=== PATIENT | male | born 1950 | race Caucasian/White ===

== ENCOUNTER 2022-12-11 14:21 | Outpatient (OUT) | payer MEDICARE, SELFPAY ==
[2022-12-11 14:54] LABS: Basophils Absolute Auto 0.1 10^3/uL (0.0-0.1); Basophils Percent Auto 0.9 % (0.2-2.0); Eosinophils Absolute Auto 0.2 10^3/uL (0.0-0.7); Eosinophils Percent Auto 3.3 % (0.9-7.0); Hematocrit 38.4 % (42.0-54.0); Hemoglobin 12.6 g/dL (14.0-18.0); Immature Granulocytes Abs Auto 0.03 10^3/uL (0.00-0.03); Immature Granulocytes Pct Auto 0.4 % (0.0-0.5); Lymphocytes Percent Auto 14.8 % (20.5-60.0); Mean Corpuscular HGB Conc 32.8 g/dL (29.9-35.2); Mean Corpuscular Hemoglobin 30.6 pg (25.9-34.0); Mean Corpuscular Volume 93.2 fL (80.0-94.0); Mean Platelet Volume 9.8 fL (9.5-13.5); Monocytes Absolute Auto 0.6 10^3/uL (0.3-0.8); Monocytes Percent Auto 8.9 % (1.7-12.0); Neutrophils Absolute Auto 4.8 10^3/uL (1.4-6.5); Neutrophils Percent Auto 71.7 % (43.0-75.0); Platelet Count 194 10^3/uL (150-450); Red Blood Count 4.12 10^6/uL (4.70-6.10); Red Cell Distribution Width 13.2 % (11.0-15.0); White Blood Count 6.7 10^3/uL (4.0-11.0)
[2022-12-11 14:57] LABS: Erythrocyte Sedimentation Rate 27 mm/hr (<=20)
[2022-12-11 16:21] LABS: Alanine Aminotransferase 39 U/L (16-63); Albumin Level 3.8 g/dL (3.4-5.0); Alkaline Phosphatase 86 U/L (46-116); Anion Gap 15.5; Aspartate Amino Transferase 22 U/L (15-37); BUN Creatinine Ratio 13.7; Bilirubin Total 0.5 mg/dL (0.2-1.0); Calcium 9.3 mg/dL (8.5-10.1); Carbon Dioxide 26.4 mmol/L (21.0-32.0); Chloride 101 mmol/L (98-107); Estimated GFR (African America >60 (>=60); Estimated GFR (Non-African Ame >60 (>=60); Globulin 3.9 g/dL; Glucose 102 mg/dL (74-106); Potassium 3.9 mmol/L (3.5-5.1); Sodium 139 mmol/L (136-145); Total Protein 7.7 g/dL (6.4-8.2); Uric Acid 5.9 mg/dL (3.5-7.2)
== END 2022-12-11 14:22 | disposition home or self-care (01) ==
PROVIDERS: PCP Family Medicine; Visit Provider Internal Medicine Rheumatology
DX: M10.09 Idiopathic gout, multiple sites (principal); Z79.899 Other long term (current) drug therapy
CPT/HCPCS: 36415; 80053; 84550; 85025; 85652

== ENCOUNTER 2023-01-22 15:31 | Outpatient (OUT) | payer MEDICARE, OTHER, SELFPAY ==
[2023-01-22 16:28] LABS: Prostate Specific Antigen Dx <0.13 ng/mL (<=4.00)
== END 2023-01-22 15:32 | disposition home or self-care (01) ==
LOC: LAB 15:36
PROVIDERS: PCP Family Medicine; Visit Provider Urology
DX: Z85.46 Personal history of malignant neoplasm of prostate (principal)
CPT/HCPCS: 36415; 84153

== ENCOUNTER 2023-04-03 10:17 | Outpatient (OUT) | payer MEDICARE, OTHER, SELFPAY ==
[2023-04-03 10:59] LABS: Basophils Absolute Auto 0.1 10^3/uL (0.0-0.1); Basophils Percent Auto 1.1 % (0.2-2.0); Eosinophils Absolute Auto 0.4 10^3/uL (0.0-0.7); Eosinophils Percent Auto 5.5 % (0.9-7.0); Hematocrit 40.1 % (42.0-54.0); Hemoglobin 13.2 g/dL (14.0-18.0); Immature Granulocytes Abs Auto 0.03 10^3/uL (0.00-0.03); Immature Granulocytes Pct Auto 0.5 % (0.0-0.5); Lymphocytes Absolute Auto 1.2 10^3/uL (1.2-3.8); Lymphocytes Percent Auto 18.5 % (20.5-60.0); Mean Corpuscular HGB Conc 32.9 g/dL (29.9-35.2); Mean Corpuscular Volume 94.1 fL (80.0-94.0); Mean Platelet Volume 9.9 fL (9.5-13.5); Monocytes Absolute Auto 0.7 10^3/uL (0.3-0.8); Monocytes Percent Auto 10.2 % (1.7-12.0); Neutrophils Absolute Auto 4.2 10^3/uL (1.4-6.5); Neutrophils Percent Auto 64.2 % (43.0-75.0); Platelet Count 221 10^3/uL (150-450); Red Blood Count 4.26 10^6/uL (4.70-6.10); Red Cell Distribution Width 13.2 % (11.0-15.0); White Blood Count 6.6 10^3/uL (4.0-11.0)
[2023-04-03 11:03] LABS: Estimated Average Glucose 128 mg/dL; Glycohemoglobin A1C 6.1 % (4.5-6.2)
[2023-04-03 11:33] LABS: Alanine Aminotransferase 34 U/L (16-63); Albumin Globulin Ratio 0.9; Albumin Level 3.6 g/dL (3.4-5.0); Alkaline Phosphatase 68 U/L (46-116); Anion Gap 9.5; Aspartate Amino Transferase 21 U/L (15-37); BUN Creatinine Ratio 11.2; Bilirubin Total 0.4 mg/dL (0.2-1.0); Calcium 8.9 mg/dL (8.5-10.1); Carbon Dioxide 30.6 mmol/L (21.0-32.0); Chloride 102 mmol/L (98-107); Chol HDL Ratio 3.7; Cholesterol 198 mg/dL (<=200); Estimated GFR (African America >60 (>=60); Estimated GFR (Non-African Ame >60 (>=60); Glucose 113 mg/dL (74-106); HDL Cholesterol 53 mg/dL (40-60); LDL Cholesterol Calculated 118.8 mg/dL; Potassium 4.1 mmol/L (3.5-5.1); Sodium 138 mmol/L (136-145); Thyroid Stimulating Hormone 2.602 uIU/mL (0.358-3.740); Total Protein 7.6 g/dL (6.4-8.2); Triglycerides 131 mg/dL (<=150); VLDL CHOLESTEROL 26.2 mg/dL
== END 2023-04-03 10:18 | disposition home or self-care (01) ==
PROVIDERS: PCP Family Medicine; Visit Provider Family Medicine
DX: E78.5 Hyperlipidemia, unspecified (principal); E11.65 Type 2 diabetes mellitus with hyperglycemia; E53.8 Deficiency of other specified B group vitamins
CPT/HCPCS: 36415; 80053; 80061; 82607; 83036; 84443; 85025

== ENCOUNTER 2023-11-27 09:56 | Outpatient (OUT) | payer MEDICARE, OTHER, SELFPAY ==
[2023-11-27 10:17] LABS: Basophils Absolute Auto 0.1 10^3/uL (0.0-0.1); Basophils Percent Auto 0.9 % (0.2-2.0); Eosinophils Absolute Auto 0.4 10^3/uL (0.0-0.7); Eosinophils Percent Auto 5.2 % (0.9-7.0); Hematocrit 38.9 % (42.0-54.0); Hemoglobin 13.4 g/dL (14.0-18.0); Immature Granulocytes Abs Auto 0.02 10^3/uL (0.00-0.03); Immature Granulocytes Pct Auto 0.3 % (0.0-0.5); Lymphocytes Absolute Auto 1.2 10^3/uL (1.2-3.8); Lymphocytes Percent Auto 16.5 % (20.5-60.0); Mean Corpuscular HGB Conc 34.4 g/dL (29.9-35.2); Mean Corpuscular Volume 92.8 fL (80.0-94.0); Mean Platelet Volume 10.1 fL (9.5-13.5); Monocytes Absolute Auto 0.5 10^3/uL (0.3-0.8); Monocytes Percent Auto 7.4 % (1.7-12.0); Neutrophils Absolute Auto 4.9 10^3/uL (1.4-6.5); Neutrophils Percent Auto 69.7 % (43.0-75.0); Platelet Count 212 10^3/uL (150-450); Red Blood Count 4.19 10^6/uL (4.70-6.10); Red Cell Distribution Width 13.2 % (11.0-15.0)
[2023-11-27 11:31] LABS: Alanine Aminotransferase 36 U/L (16-63); Albumin Globulin Ratio 1.1; Albumin Level 3.8 g/dL (3.4-5.0); Alkaline Phosphatase 65 U/L (46-116); Anion Gap 12.1; Aspartate Amino Transferase 18 U/L (15-37); BUN Creatinine Ratio 18.8; Bilirubin Total 0.5 mg/dL (0.2-1.0); Calcium 8.9 mg/dL (8.5-10.1); Chloride 105 mmol/L (98-107); Chol HDL Ratio 3.5; Cholesterol 163 mg/dL (<=200); Estimated GFR (African America >60 (>=60); Estimated GFR (Non-African Ame >60 (>=60); Globulin 3.6 g/dL; Glucose 121 mg/dL (74-106); HDL Cholesterol 47 mg/dL (40-60); LDL Cholesterol Calculated 95.4 mg/dL; Potassium 4.1 mmol/L (3.5-5.1); Sodium 140 mmol/L (136-145); Thyroid Stimulating Hormone 2.249 uIU/mL (0.358-3.740); Total Protein 7.4 g/dL (6.4-8.2); Triglycerides 103 mg/dL (<=150); Uric Acid 5.1 mg/dL (3.5-7.2); VLDL CHOLESTEROL 20.6 mg/dL
[2023-11-27 11:38] LABS: Prostate Specific Antigen Dx <0.13 ng/mL (<=4.00)
[2023-11-27 11:44] LABS: Estimated Average Glucose 123 mg/dL; Glycohemoglobin A1C 5.9 % (4.5-6.2)
== END 2023-11-27 09:57 | disposition home or self-care (01) ==
LOC: LAB 10:00
PROVIDERS: PCP Family Medicine; Visit Provider Family Medicine
DX: E11.69 Type 2 diabetes mellitus with other specified complication (principal); E78.5 Hyperlipidemia, unspecified; E53.8 Deficiency of other specified B group vitamins; Z85.46 Personal history of malignant neoplasm of prostate; M10.9 Gout, unspecified
CPT/HCPCS: 36415; 80053; 80061; 82607; 83036; 84153; 84443; 84550; 85025

== ENCOUNTER 2024-06-02 11:48 | Outpatient (OUT) | payer MEDICARE, OTHER, SELFPAY ==
[2024-06-02 12:08] LABS: Basophils Absolute Auto 0.1 10^3/uL (0.0-0.1); Basophils Percent Auto 0.7 % (0.2-2.0); Eosinophils Absolute Auto 0.4 10^3/uL (0.0-0.7); Eosinophils Percent Auto 4.7 % (0.9-7.0); Hematocrit 42.2 % (42.0-54.0); Hemoglobin 14.2 g/dL (14.0-18.0); Immature Granulocytes Abs Auto 0.02 10^3/uL (0.00-0.03); Immature Granulocytes Pct Auto 0.2 % (0.0-0.5); Lymphocytes Absolute Auto 1.4 10^3/uL (1.2-3.8); Lymphocytes Percent Auto 16.7 % (20.5-60.0); Mean Corpuscular HGB Conc 33.6 g/dL (29.9-35.2); Mean Corpuscular Hemoglobin 31.3 pg (25.9-34.0); Mean Corpuscular Volume 93.2 fL (80.0-94.0); Mean Platelet Volume 9.5 fL (9.5-13.5); Monocytes Absolute Auto 0.6 10^3/uL (0.3-0.8); Monocytes Percent Auto 7.3 % (1.7-12.0); Neutrophils Absolute Auto 5.8 10^3/uL (1.4-6.5); Neutrophils Percent Auto 70.4 % (43.0-75.0); Platelet Count 222 10^3/uL (150-450); Red Blood Count 4.53 10^6/uL (4.70-6.10); Red Cell Distribution Width 13.3 % (11.0-15.0); White Blood Count 8.3 10^3/uL (4.0-11.0)
--- OUTSIDE RECORDS SUMMARY | 2024-06-02 12:11 | XMS_ITS | CCD ---
Author Organization [facility] Care Team Providers Care Site Medical Director Name Role Phone KAVEH TRAN Attending Unavailable KAVEH TRAN Primary Care Unavailable KAVEH TRAN Primary Care Physician [phone] Micah Forrest Unavailable Kaveh Tran Unavailable Drew Dacosta Unavailable Unavailable Unavailable DO Kaveh Tran Primary Care Provider [phone] MD Micah Forrest Attending Provider [phone] Drew Dacosta Referring Unavailab Dr. Emanuel Nino Attending Unava ilable MOISÉS Figueroa Attending Provider DO Kaveh Tran Attending Provider [phone] MOISÉS Kessler Attending Provider [phone] MD Christofer Devi Attending Provider Caroline Campos Unavailable DO Kaveh Tran Primary Care Provider [phone] MOISÉS Kessler Attending Provider DO Kaveh Tran Attending Provider [phone] MD Christofer Devi Attending Provider Killian Taylor Unavailable DR KAVEH TRAN Primary Care Unavailable SUSAN, DR ISABEL Admitting Unavailable SUSAN, DR ISABEL Consulting Unavailable SUSAN, DR ISABEL Attending Unavailable MARC, DR LINN Admitting Unavailable MARC, DR LINN Primary Care Unavailable MARC, DR LINN Consulting Unavailable MARC, DR LINN Attending Unavailable MARC, DR LINN Primary Care Unavailable TOÑITO ., DR SEPULVEDA Admitting Unavailable TOÑITO ., DR SEPULVEDA Consulting Unavailable TOÑITO ., DR SEPULVEDA Attending Unavailable Anthony SIBLEY Attending Unavailable Anthony SIBLEY Attending Unavailable DO Kaveh Tran Primary Care Provider Choco, REESE Mckay Attending Provider Wilhelm, Nely Unavailable Marc, DO Linn Primary Care Provider MD Christofer Devi Attending Provider [phone] Marc, DO Linn Primary Care Provider [phone] MD Nimesh Akhtar Attending Provider [phone] Kaveh Tran Primary Care Unavailable Nimesh Akhtar Attending Unavailable Nimesh Akhtar Admitting Unavailable Choco Nely Attending Unavailable Choco, Nely Admitting Unavailable Kaveh Tran Primary Care Unavailable Kaveh Tran Primary Care Unavailable Christofer Devi Attending Unavailable Christofer Devi Admitting Unavailable Kaveh Tran DO Primary Care Provider [phone] ISMAEL REYNA Attending Unavailable ISMAEL REYNA Referring Unavailable SHERRIE KESSLER Attending Unavailable ISMAEL REYNA Attending Unavailable ISMAEL REYNA Attending Unavailable DREW DACOSTA Referring Unavailable OLESYA, DREW Hatfield Attending Unavailable DREW DACOSTA Referring Unavailable SHERRIE KESSLER Attending Unavailable ISMAEL REYNA Attending Unavailable YOVANNY LIU Attending Unavailable ISMAEL REYNA Attending Unavailable Medications Current Medications Medication Drug Class(es) Dates Sig (Normalized) Sig (Original) acetaminophen 325 mg / oxyCODONE hydrochloride 5 mg oral tablet (6 sources) Opioid Agonist Start: 11-30-2021 Percocet 325 mg-5 mg Tab 1 tab(s), Oral, q4hr Pain 4-7, Refill(s) 0 Start Date: 11/30/21 Status: Ordered allopurinol 300 mg oral tablet (20 sources) Xanthine Oxidase Inhibitor Start: 09-19-2022 take 1 tablet by mouth in the morning allopurinol (Zyloprim) 300 MG tablet Take 300 mg by mouth in the morning. 09/19/2022 Active take 1 tablet by mouth every twe nty-four hours amLODIPine 5 mg oral tablet (20 sources) Dihydropyridine Calcium Channel Eric Start: 07-15-2018 End: 12-10-2023 amLODIPine (Norvasc) 5 MG tablet Every morning 12/10/2023 Active aspirin 325 mg oral tablet (3 sources) Platelet Aggregation Inhibitor, Nonsteroidal Anti-inflammatory Drug Start: 11-30-2021 End: 12-30-2021 take 1 tablet by mouth once daily aspirin 325 mg Tab 325 mg = 1 tab(s), Oral, Daily, X 30 day(s), # 30 tab(s), Refills(s) 0 Start Date: 11/30/21 Stop Date: 12/30/21 Status: Ordered cephalexin 500 mg oral capsule (15 sources) Cephalosporin Antibacterial Start: 04-22-2024 cephalexin (Keflex) 500 MG capsule Indications: History of left knee replacement Take all 4 capsules one hour before the procedure. 4 capsule 04/22/2024 Active Start: 12-25-2021 take 1 capsule by mo [facility] three times daily Keflex 500 mg Cap 500 mg = 1 cap(s), Oral, TID, Take one capsule by mouth three times a day for ten days, # 30 cap(s), Refills(s) 0, Pharmacy: [facility]/pharmacy #[id number], 168, cm, 12/25/21 13:12:00 EDT, Height/Length Dosing, 108, kg, 12/25/21 13:12:00 EDT, Weight Dosing Start Date: 12/25/21 Status: Ordered Start: 11-30-2021 End: 12-05-2021 take 1 capsule by mouth four times daily Keflex 500 mg Cap 500 mg = 1 cap(s), Oral, QID, X 5 day(s), # 20 cap(s), Refills(s) 0 Start Date: 11/30/21 Stop Date: 12/05/21 Status: Ordered Start: 06-18-2019 End: 09-09-2023 take 1 capsule by mouth every eight hours Cephalexin (Keflex) 500 mg capsule Discontinued 500 MG PO Q8H June 18, 2019 1:00am September 09, 2023 9:10am Compression stockings, 20-30 mmHg, calf 20-30mmHg (20 sources) Start: 09-10-2019 Start: 09-10-[address] [place]ckings, 20-30mmHg, calf 20-30mmHg externally daily as directed for 3 months August, Not-Taking Start: 09-10-2019 Start: 09-10-[address] ockings, 20-30mmHg, calf 20-30mmHg externally daily as directed for 3 months August, Active Cpap (Continuous Positive rway Pressure) (3 sources) Start: 09-09-2023 Cpap (Continuo us Positive Airway Pressure) Active 0 .Route September 09, 2023 12:00am As directed Start: 09-09-2023 Cpap (Continuo us Positive Airway Pressure) Active 0 .ROUTE September 09, 2023 12:00am As directed CPAP Machine (20 sources) CPAP Machine Act kimani cyclobenzaprine hydrochloride 10 mg oral tablet (20 sources) Muscle Relaxant Start: 01-24-2023 cyclobenzaprin e (Flexeril) 10 MG tablet Daily at bedtime 01/24/2023 Active Start: 06-18-2019 End: 09-09-2023 take 10 mg by mouth three times daily Cyclobenzaprine Discontinued 10 MG PO Three times daily 50 June 18, 2019 1:00am September 09, 2023 9:15am docusate sodium 100 mg oral capsule (3 sources) Start: 11-30-2021 take 1 capsule by mouth twice daily Colace 100 mg Cap 100 mg = 1 cap(s), Oral, BID, Refills(s) 0 Start Date: 11/30/21 Status: Ordered doxycycline monohydrate 100 mg oral tablet (1 source) Tetracycline- class Drug Start: 12-25-2021 End: 01-04-2022 take 1 tablet by mouth twice daily doxycycline monohydrate 100 mg oral tablet 100 mg = 1 tab(s), Oral, BID, X 10 day(s), # 20 tab(s), Refills(s) 0, Pharmacy: [facility]/pharmacy #[id number], 168, cm, 12/25/21 13:12:00 EDT, Height/Length Dosing, 108, kg, 12/25/21 13:12:00 EDT, Weight Dosing Start Date: 12/25/21 Stop Date: 01/04/22 Status: Ordered gabapentin 600 mg oral tablet (20 sources) Anti-epilepti c Agent Start: 03-16-2024 End: 06-14-2024 take 1 tablet by mouth at bedtime gabapentin (Neurontin) 600 MG tablet Indications: Polyneuropathy Take 1 tablet (600 mg) by mouth at bedtime 90 tablet 03/16/2024 06/14/2024 Active Start: 09-09-2023 End: 02-25-2024 take 1 tablet by mouth at bedtime gabapentin (Neurontin) 600 MG tablet Indications: Polyneuropathy Take 1 tablet (600 mg) by mouth at bedtime 30 tablet 2 11/27/2023 02/25/2024 Active Start: 01-24-2023 gabapentin 600 mg Tab Refills(s) 0 Start Date: 01/24/23 Status: Ordered Start: 11-14-2020 take 5 capsules by m out once daily gabapentin 100 mg Cap 5 cap, Oral, Daily, Refills(s) 0, Pain Start Date: 11/14/20 Status: Ordered Start: 11-14-2020 gabapentin 100 mg Cap See Instructions, 4 tabs one a day at hs, Refills(s) 0 Start Date: 11/14/20 Status: Ordered take 1 capsule by mo [facility] four times daily Gabapentin 100 MG Oral Capsule TAKE 1 CAPSULE 4 TIMES DAILY Quantity: 0 Refills: 0 Ordered: 21-Nov-2021 DO Active Glucometer Device (13 sources) Start: 06-17-2022 Start: 06-17-2022 Glucometer Dev ice as directed as directed as directed per insurance May, Active hydroCHLOROthiazide 12.5 mg / olmesartan medoxomil 20 mg oral tablet (20 sources) Thiazide Diuretic, Angiotensin 2 Receptor Eric Start: 09-09-2023 End: 12-10-2023 take 1 tablet by mouth once daily Olmesartan-Hydrochlorothiazide Active 1 TAB PO Daily 90 December 10, 2023 2:24pm Start: 12-14-2022 olmesartan-hyd roCHLOROthiazide (BENIcar HCT) 20-12.5 MG tablet 12/14/2022 Active Start: 10-05-2019 take 1 tablet by melva th every twenty-four hours Olmesartan Medoxomil-HCTZ 20-12.5 MG 1 t ablet Orally Once a day Sep, Active Start: 10-05-2019 take 1 tablet by melva th every twenty-four hours meloxicam 15 mg oral tablet (20 sources) Nonsteroidal Anti-inflammatory Drug Start: 09-09-2023 meloxicam (Mobic) 15 MG tablet Daily 09/09/2023 Active Start: 08-20-2021 take 1 tablet by melva th once daily meloxicam 7.5 mg oral tablet 7.5 mg = 1 tab(s), Oral, Daily, Refills(s) 0, Inflammation Start Date: 08/20/21 Status: Ordered Start: 04-09-2021 take 1 tablet by melva th once daily as needed Meloxicam 15 MG 1 tablet Orally Once a day as needed for 30 days Mar, Active Start: 04-09-2021 take 1 tablet by melva th twice daily as needed Meloxicam 7.5 MG 1 tablet Orally BID PRN for 30 day(s) Mar, Active Start: 04-09-2021 metFORMIN hydrochloride 500 mg oral tablet (20 sources) Biguanide Start: 09-09-2023 take 500 mg by mouth once daily Metformin Active 500 MG PO Daily September 09, 2023 12:00am Start: 05-09-2022 take 1 tablet by melva th every twenty-four hours metFORMIN HCl 500 MG 1 tablet with a meal Orally Once a day Apr, Active metFORMIN XR (Gl ucophage-XR) 500 MG 24 hr tablet 1 (one) time each day at the same time. Active Multivitamin preparation (10 sources) Start: 06-02-2019 take 1 tablet by mouth once daily Multivitamin Active 1 TAB PO Daily June 02, 2019 1:00am Start: 06-02-2019 take 1 tablet by melva th once daily Multivitamin Active 1 TAB PO Daily June 02, 2019 12:00am Multivitamin, Therapeutic w/ Minerals (7 sources) Start: 03-21-2015 take 1 tablet by mouth twice daily Multivitamin, Therapeutic w/ Minerals 1 tab(s), Oral, BID, Refill(s) 0, Prophylaxis Start Date: 03/21/15 Status: Ordered Start: 03-21-2015 take 1 tablet by melva th once daily Multivitamin, Therapeutic w/ Minerals 1 tab(s), Oral, Daily, Refill(s) 0, Prophylaxis Start Date: 03/21/15 Status: Ordered Needle (Disp) 22G X 1 (13 sources) Start: 06-17-2022 Start: 06-17-2022 Needle (Disp) 22G X 1 as directed IM monthly for 90 days May, Active predniSONE 5 mg oral tablet (20 sources) Start: 08-17-2022 End: 09-16-2023 take 1-2 tablets by mouth once daily as needed predniSONE (Deltasone) 5 MG tablet TAKE 1 - 2 TABLETS BY MOUTH EVERYDAY NEEDED 08/17/2022 Active Start: 06-18-2019 End: 09-09-2023 Prednisone Discontinued 1 do se pk PO per package directions June 18, 2019 1:00am September 09, 2023 9:11am take 4 tabs for 3 days then take 3 tabs for 3 days then take 2 tabs for 3 days then take 1 tab for 3 days Start: 06-18-2019 Prednisone Act kimani 1 dose pk PO per package directions June 18, 2019 1:00am take 4 tabs for 3 days then take 3 tabs for 3 days then take 2 tabs for 3 days then take 1 tab for 3 days Start: 06-18-2019 Prednisone Act kimani 1 dose pk PO per package directions June 18, 2019 12:00am take 4 tabs for 3 days then take 3 tabs for 3 days then take 2 tabs for 3 days then take 1 tab for 3 days rOPINIRole 1 mg oral tablet (20 sources) Nonergot Dopamine Agonist Start: 02-11-2024 take 2 tablets by mouth at bedtime rOPINIRole (Requip) 0.5 MG tablet Indications: Restless leg syndrome TAKE 1 TABLET BY MOUTH 1 TO 3 HOURS BEFORE BEDTIME (TAKE IN ADDITION TO 1MG) 90 tablet 3 02/11/2024 Active Start: 02-11-2024 rOPINIRole (Re quip) 1 MG tablet Indications: Restless leg syndrome TAKE 1 TABLET EVERY DAY (TAKE IN ADDITION TO 0.5MG) 90 tablet 3 02/11/2024 Active Start: 09-09-2023 take 1.5 mg by mouth once eddy y Ropinirole Active 1.5 MG PO Daily September 09, 2023 12:00am Start: 11-13-2021 rOPINIRole (Re quip) 1 MG tablet 11/25/2022 Active Start: 11-13-2021 rOPINIRole (Re quip) 0.5 MG tablet 11/25/2022 Active Start: 03-27-2020 take 2 tablets by mo [facility] once daily ropinirole 0.25 mg Tab 0.5 mg = 2 tab(s), Oral, Daily, Refills(s) 0, Other (see comment) Start Date: 03/27/20 Status: Ordered take 1.5 tablets by mouth every twenty-four hours rOPINIRole HCl 1 MG 1.5 tablet 1 to 3 hours before bedtime Orally Once a day Active simvastatin 20 mg oral tablet (20 sources) HMG-CoA Reductase Inhibitor Start: 03-21-2015 End: 12-10-2023 take 20 mg by mouth once daily at bedtime Simvastatin Active 20 MG PO Daily at bedtime 90 90 December 10, 2023 2:15pm sulfamethoxazole 800 mg / trimethoprim 160 mg oral tablet (2 sources) Dihydrofolate Reductase Inhibitor Antibacterial, Sulfonamide Antimicrobial Start: 12-22-2021 End: 12-27-2021 Bactrim D.S. 800 mg-160 mg Tab 1 tab(s), Oral, BID for 5 day(s), 10 tab(s), Refill(s) 0, [facility]/pharmacy #[id number], 166, cm, 12/22/21 15:28:00 EDT, Height/Length Dosing, 108.8, kg, 12/22/21 15:28:00 EDT, Weight Dosing Start Date: 12/22/21 Stop Date: 12/27/21 Status: Ordered Syringe (Disposable) 3 ML (13 sources) Start: 06-17-2022 Start: 06-17-2022 Syringe (Dispo sable) 3 ML as directed im monthly for 90 days May, Active Syringe With Needle (1 source) Start: 12-10-2023 Syringe With N eedle Active 0 .Route 3 December 10, 2023 12:00am As directed Vitamin B Complex oral tablet (7 sources) Start: 03-21-2015 take 1 tablet by mouth twice daily Vitamin B Complex oral tablet 1 tab(s), Oral, BID, Refill(s) 0, Prophylaxis Start Date: 03/21/15 Status: Ordered Start: 03-21-2015 take 1 tablet by [facility] once daily Vitamin B Complex oral tablet 1 tab(s), Oral, Daily, Refill(s) 0, Prophylaxis Start Date: 03/21/15 Status: Ordered vitamin b12 1 mg/ml injectable solution (20 sources) Vitamin B12 Start: 09-09-2023 End: 12-10-2023 inject 1 mL by intramuscular injection every two months Cyanocobalamin (Vitamin B-12) Active 1000 MCG IM .Q2 months 3 December 10, 2023 2:19pm 1 mL Injection every other month Start: 12-03-2022 cyanocobalamin (Vitamin B-12) 1000 MCG/ML injection 12/03/2022 Active Start: 06-17-2022 Cyanocobalamin 1000 MCG/ML 1 mL Injection every other month single vial May, Active Start: 06-17-2022 Cyanocobalamin 1000 MCG/ML 1 mL Injection monthly for 90 days single vial May, Active {20 (nirmatrelvir 150 MG Ora l Tablet) / 10 (ritonavir 100 MG Oral Tablet) } Pack [Paxlovid 5-Day] (3 sources) Start: 03-21-2023 Paxlovid (300/ 100) 20 x 150 MG & 10 x 100MG as directed Orally as directed GFR >60 covid + 03/20/23 Mar, Active Completed/Discontinued Medications Medication Drug Class(es) Dates Sig (Normalized) Sig (Original) azithromycin 250 mg oral tablet (3 sources) Macrolide Antimicrobial Start: 09-08-2023 End: 09-16-2023 Azithromycin (Zithromax Z-Enoc) 250 mg tablet Discontinued 250 MG PO As Directed September 08, 2023 12:00am September 16, 2023 9:39am citalopram 20 mg oral tablet (20 sources) Serotonin Reuptake Inhibitor Start: 10-14-2017 take 1 tablet by mouth every twenty-four hours CeleXA 40 MG 1 tablet Orally Once a day for 90 days Sep, Active Start: 10-14-2017 End: 12-10-2023 take 20 mg by mouth once daily in the morning Citalopram Discontinued 20 MG PO Every morning July 15, 2018 12:00am December 10, 2023 1:56pm indomethacin 25 mg oral capsule (19 sources) Nonsteroidal Anti-inflammatory Drug Start: 09-09-2023 End: 09-16-2023 take 1 capsule by mouth twice daily at mealtime Indomethacin Discontinued 25 MG PO Twice daily September 09, 2023 12:00am September 16, 2023 9:38am 1 capsule with food or milk Orally Twice a day Start: 01-28-2022 take 1 capsule by mo uth every twelve hours Indomethacin 25 MG 1 capsule with food or milk Orally Twice a day Jan, Active Ketorolac (20 sources) Nonsteroidal Anti-inflammatory Drug, Cyclooxygenase Inhibitor Start: 06-28-2017 Toradol per 15 mg Jun, 60 mg methylPREDNISolone 4 mg oral tablet (3 sources) Corticosteroid Start: 09-08-2023 End: 09-16-2023 Methylprednisolone (Medrol (Enoc)) 4 mg tablets,dose pack Discontinued 4 MG PO As Directed September 08, 2023 12:00am September 16, 2023 9:39am oxyCODONE hydrochloride 5 mg oral capsule (10 sources) Opioid Agonist Start: 06-18-2019 End: 09-09-2023 take 5-10 mg by mouth every six hours Oxycodone Discontinued 5 - 10 MG PO Q6H 60 8 June 18, 2019 September 09, 2023 9:11am Turmeric Curcumin Oral Capsule (1 source) take 1 capsule by mouth once daily Turmeric Curcumin Oral Capsule TAKE 1 CAPSULE Daily Quantity: 0 Refills: 0 Ordered: 21-Nov-2021 DO Active Vitamin B Complex CAPS (1 source) Vitamin B Comple x CAPS as directed Quantity: 0 Refills: 0 Ordered: 21-Nov-2021 DO Active Problems Active Problems Problem Classification Problem Date Documented Date Episodic/Chronic Abdominal hernia (20 sources) Hernia of anterior abdominal wall; Translations: [Ventral hernia without obstruction or gangrene] Episodic Acquired foot deformities (20 sources) Acquired hallux valgus; Translations: [Hallux valgus (acquired), unspecified foot] Chronic Acquired foot deformities (4 sources) Acquired deformity of toe of left foot; Translations: [Acquired deformities of toe(s), unspecified, left foot] 02-13-2024 Episodic Acquired foot deformities (4 sources) Acquired deformity of toe of right foot; Translations: [Acquired deformities of toe(s), unspecified, right foot] 02-13-2024 Episodic Anxiety disorders (20 sources) Agoraphobia; Translations: [Agoraphobia, unspecified] Onset: 04-09-2021 Resolved: 09-14-2021 Chronic Aortic; peripheral; and visceral artery aneurysms (20 sources) Abdominal aortic aneurysm without rupture; Translations: [Abdominal aortic aneurysm, without rupture] 09-09-2023 Chronic Cancer of prostate (20 sources) Carcinoma of prostate; Translations: [Malignant neoplasm of prostate] Onset: 09-14-2021 Resolved: 09-14-2021 Chronic Cancer of prostate (11 sources) Personal history of malignant neoplasm of prostate; Translations: [History of malignant neoplasm of prostate] Onset: 08-20-2021 Episodic Complications of surgical procedures or medical care (20 sources) Difficult intubation; Translations: [Failed or difficult intubation, subsequent encounter] Episodic Diabetes mellitus with complications (20 sources) Peripheral neuropathy due to type 2 diabetes mellitus; Translations: [Type 2 diabetes mellitus with diabetic neuropathy, unspecified] Onset: 09-06-2022 Chronic Diabetes mellitus without complication (5 sources) Diabetes mellitus; Translations: [Type 2 diabetes mellitus] 03-21-2015 Chronic Diabetes mellitus without complication (20 sources) Prediabetes; Translations: [Hyperglycemia] Onset: 04-09-2021 Resolved: 09-14-2021 01-07-2020 Episodic Disorders of lipid metabolism (20 sources) Hyperlipidemia, unspecified; Translations: [Hypercholesterolemia ] Onset: 07-15-2018 Resolved: 09-14-2021 03-27-2020 Chronic Essential hypertension (20 sources) Essential (primary) hypertension; Translations: [Hypertensive disorder] Onset: 07-15-2018 Resolved: 09-14-2021 08-18-2019 Chronic Genitourinary symptoms and ill-defined conditions (2 sources) Urge incontinence; Translations: [Urge incontinence] Onset: 08-20-2021 Chronic Genitourinary symptoms and ill-defined conditions (12 sources) Nocturia; Translations: [Nocturia] Onset: 08-20-2021 Episodic Gout and other crystal arthropathies (20 sources) 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; Translations: [Gout, unspecified] Onset: 09-18-2022 Chronic Hyperplasia of prostate (7 sources) Benign prostatic hyperplasia 03-27-2020 Chronic Joint disorders and dislocations; trauma-related (1 source) Tear of medial meniscus of knee 03-27-2020 Episodic Mycoses (6 sources) Pain in toe; Translations: [Tinea unguium] 02-13-2024 Episodic Neoplasms of unspecified nature or uncertain behavior (2 sources) Neoplastic disease; Translations: [Neoplasm of unspecified behavior of bone, soft tissue, and skin] 03-08-2024 Episodic Nutritional deficiencies (13 sources) Vitamin D deficiency; Translations: [Vitamin D deficiency, unspecified] Chronic Nutritional deficiencies (9 sources) Deficiency of other specified B group vitamins; Translations: [Cobalamin deficiency] Episodic Osteoarthritis (1 source) Osteoarthritis of knee; Translations: [Unilateral primary osteoarthritis, left knee] Onset: 11-30-2021 Chronic Osteoporosis (20 sources) Senile osteoporosis; Translations: [Age-related osteoporosis without current pathological fracture] 09-09-2023 Chronic Other acquired deformities (20 sources) Joint contracture of the ankle and/or foot; Translations: [Contracture, right ankle] Chronic Other acquired deformities (20 sources) Spondylolisthesis; Translations: [Spondylolisthesis, lumbar region] Episodic Other acquired deformities (3 sources) Lumbar spondylolisthesis; Translations: [Spondylolisthesis, lumbar region] 09-09-2023 Episodic Other and unspecified benign neoplasm (2 sources) Melanocytic nevus of trunk; Translations: [Melanocytic nevi of trunk] 03-08-2024 Episodic Other connective tissue disease (1 source) Diastasis recti 11-14-2020 Episodic Other connective tissue disease (1 source) Arthrodesis status Episodic Other ear and sense organ disorders (7 sources) Hearing loss 04-04-2020 Chronic Other hereditary and degenerative nervous system conditions (20 sources) Restless legs; Translations: [Restless legs syndrome] Onset: 07-24-2023 11-13-2021 Chronic Other hereditary and degenerative nervous system conditions (3 sources) Restless legs syndrome Onset: 03-01-2021 Resolved: 03-01-2021 Chronic Other inflammatory condition of skin (2 sources) Seborrheic dermatitis; Translations: [Other seborrheic dermatitis] 03-08-2024 Episodic Other lower respiratory disease (5 sources) Cough; Translations: [Cough] 09-09-2023 Episodic Other male genital disorders (2 sources) Secondary erectile dysfunction; Translations: [Erectile dysfunction following radical prostatectomy] Onset: 08-20-2021 Chronic Other male genital disorders (7 sources) Erectile dysfunction following radical prostatectomy 06-05-2020 Chronic Other male genital disorders (1 source) Erectile dysfunction following radical prostatectomy; Translations: [ERECTILE DYSF FLW RADL PROSTATECT] Onset: 08-27-2022 Chronic Other nervous system disorders (20 sources) Chronic pain; Translations: [Other chronic pain] 09-09-2023 Chronic Other nervous system disorders (20 sources) Polyneuropathy; Translations: [Polyneuropathy, unspecified] Onset: 07-24-2023 09-09-2023 Chronic Other nervous system disorders (2 sources) Polyneuropathy, unspecified Chronic Other nervous system disorders (17 sources) Carpal tunnel syndrome of right wrist; Translations: [Carpal tunnel syndrome, right upper limb] Onset: 07-24-2023 01-14-2024 Chronic Other nervous system disorders (17 sources) Disorder of right median nerve; Translations: [Other lesions of median nerve, right upper limb] Onset: 07-24-2023 07-24-2023 Chronic Other nervous system disorders (20 sources) Unsteady gait; Translations: [Unsteadiness on feet] Episodic Other nervous system disorders (12 sources) Impairment of balance; Translations: [Other abnormalities of gait and mobility] Episodic Other nervous system disorders (1 source) Other abnormalities of gait and mobility Episodic Other non-epithelial cancer of skin (20 sources) History of malignant basal cell neoplasm of skin; Translations: [Personal history of other malignant neoplasm of skin] 03-08-2024 Episodic Other nutritional; endocrine; and metabolic disorders (20 sources) Body mass index 30+ - obesity; Translations: [Body mass index (BMI) 37.0-37.9, adult] 11-14-2020 Chronic Other nutritional; endocrine; and metabolic disorders (20 sources) Obese class II; Translations: [Body mass index (BMI) 35.0-35.9, adult] Chronic Other nutritional; endocrine; and metabolic disorders (1 source) Body mass index (BMI) 37.0-37.9, adult Onset: 03-01-2021 Resolved: 03-01-2021 Chronic Other nutritional; endocrine; and metabolic disorders (1 source) Obesity; Translations: [Obesity, unspecified] Chronic Other screening for suspected conditions (not mental disorders or infectious disease) (20 sources) Raised prostate specific antigen; Translations: [Patient encounter status] Onset: 03-13-2021 Resolved: 04-09-2021 03-27-2020 Episodic Other skin disorders (2 sources) Lentiginosis; Translations: [Other melanin hyperpigmentation] 03-08-2024 Episodic Other skin disorders (2 sources) Inflamed seborrheic keratosis; Translations: [Inflamed seborrheic keratosis] 03-08-2024 Episodic Other upper respiratory infections (5 sources) Streptococcal sore throat; Translations: [Streptococcal pharyngitis] Episodic Residual codes; unclassified (7 sources) Sleep apnea 04-04-2020 Chronic Comment on above: uses CPAP uses CPAP Residual codes; unclassified (20 sources) Obstructive sleep apnea syndrome; Translations: [Obstructive sleep apnea (adult) (pediatric)] Onset: 07-24-2023 09-09-2023 Chronic Residual codes; unclassified (20 sources) Periodic limb movement disorder; Translations: [Periodic limb movement disorder] Onset: 07-24-2023 09-09-2023 Chronic Residual codes; unclassified (20 sources) 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; Translations: [Insomnia due to medical condition] Chronic Residual codes; unclassified (3 sources) Obstructive sleep apnea (adult) (pediatric) Onset: 03-01-2021 Resolved: 03-01-2021 Chronic Residual codes; unclassified (2 sources) Periodic limb movement disorder Onset: 03-01-2021 Resolved: 09-14-2021 Chronic Residual codes; unclassified (1 source) Obstructive sleep apnea (adult)(pediatric); Translations: [Obstructive sleep apnea (adult) (pediatric)] Onset: 04-04-2023 Chronic Residual codes; unclassified (20 sources) Edema; Translations: [Localized edema] Episodic Residual codes; unclassified (20 sources) Postprocedural state finding; Translations: [Other specified postprocedural states] Episodic Residual codes; unclassified (3 sources) Edema of lower extremity; Translations: [Localized edema] 09-09-2023 Episodic Residual codes; unclassified (3 sources) Insomnia; Translations: [Insomnia, unspecified] 09-09-2023 Episodic Screening and history of mental health and substance abuse codes (1 source) Ex-smoker; Translations: [Personal history of tobacco use] Episodic Comment on above: quit as a teen; Skin and subcutaneous tissue infections (1 source) Cellulitis; Translations: [Cellulitis, unspecified] Onset: 12-25-2021 Episodic Spondylosis; intervertebral disc disorders; other back problems (20 sources) Degeneration of lumbar intervertebral disc; Translations: [Other intervertebral disc degeneration, lumbar region] Onset: 04-09-2021 Resolved: 04-09-2021 Chronic Unclassified (3 sources) Encounter for screening for cardiovascular disorders; Translations: [Encounter for screening for cardiovascular disorders] Onset: 07-15-2018 Viral infection (3 sources) Respiratory syncytial virus infection; Translations: [Other specified viral diseases] 09-09-2023 Episodic Past or Other Problems Problem Classification Problem Date Documented Da te Episodic/Chronic Other aftercare (5 sources) Other buttermilk drier operator (current) drug therapy; Translations: [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] Onset: 09-17-2022 Episodic Other connective tissue disease (2 sources) Pain of toes of bilateral feet; Translations: [Pain in right toe(s)] 12-07-2023 Episodic Other nervous system disorders (17 sources) Paresthesia; Translations: [Paresthesia of skin] Onset: 07-24-2023 07-24-2023 Episodic Other nervous system disorders (17 sources) Abnormal gait; Translations: [Unsteadiness on feet] Onset: 07-24-2023 07-24-2023 Episodic Other non-traumatic joint disorders (1 source) Pain in left knee Onset: 09-14-2021 Resolved: 09-14-2021 Episodic Spondylosis; intervertebral disc disorders; other back problems (20 sources) Lumbar radiculopathy; Translations: [Radiculopathy, lumbar region] Onset: 07-24-2023 06-17-2019 Episodic Unclassified (1 source) Cough, unspecified type R05.9 Viral infection (6 sources) Disease caused by 2019-nCoV; Translations: [COVID-19] Results Test Name Value Interpretation Reference Range Facility No Panel Informationon 03-08 Type of biopsy: tangential Informed consent: discussed and consent obtained Informed consent comment: The risks and benefits of the biopsy were discussed. Risks include but are not limited to bleeding, infection, scarring, pain, and nerve damage. An opportunity to ask questions prior to the procedure was permitted and all questions were answered. Patient was prepped and draped in usual sterile fashion: area cleansed with alcohol. Anesthesia: the lesion was anesthetized in a standard fashion Anesthetic: 1% lidocaine w/ epinephrine 1-100,000 buffered w/ 8.4% NaHCO3 Instrument used: DermaBlade Hemostasis achieved with: electrodesiccation Outcome: patient tolerated procedure well Outcome comment: The specimen was placed in a prelabeled formalin container to be sent for pathology Post-procedure details: sterile dressing applied and wound care instructions given Post-procedure details comment: Emphasized need to contact clinic for any signs of infection, uncontrollable bleeding, or complications. Dressing type: bandage Additional details: Photo taken yes Amount of lidocaine used: 0.5 cc [facility] XR Knee - left 3 [facility] Result: Xrays taken in the office today saved to the permanent record, AP, sunrise and lateral weightbearing films, show stable position and alignment of the TKA prosthesis. No sign of loosening, fracture or infection. [facility] Radiology Study observation (narrative) [facility] Basophils Auto (Bld) [#/Vol] on 11-27-2023 Basophils (Bld) [#/Vol] 0.1 10 3/uL 0.0-0.1 [facility] Basophils/100 WBC Auto (Bld) on 11-27-2023 Basophils/100 WBC (Bld) 0.9 % 0.2-2.0 [facility] Cholesterol in LDL Calc [Mas s/Vol]on 11-27-2023 Cholesterol in LDL [Mass/Vol] 95.4 mg/dL [facility] Comment on above: <100 mg/dl [id number] 0-129 mg/dl NEAR OR ABOVE [id number] mg/dl BORDERLINE [id number] mg/dl HIGH>190 mg/dl VERY HIGH Cholesterol in VLDL Calc [Ma ss/Vol]on 11-27-2023 Cholesterol in VLDL [Mass/Vol] 20.6 mg/dL [facility] Eosinophils/100 WBC Auto (Bl d)on 11-27-2023 Eosinophils/100 WBC (Bld) 5.2 % 0.9-7.0 [facility] Erythrocyte distribution wid th Auto (RBC) [Ratio]on 11-27-2023 Erythrocyte distribution width (RBC) [Ratio] 13.2 % 11.0-15.0 [facility] Estimated glomerular filtrat ion rate (GFR) non- Americanon 11-27-2023 GFR/1.73 sq M.predicted among non-blacks MDRD (S/P/Bld) [Vol rate/Area] mL/min/{1.73_m2} >=60 [facility] Globulin Calc (S) [Mass/Vol] on 11-27-2023 Globulin (S) [Mass/Vol] 3.6 g/dL [facility] Glucose mean value [Mass/vol ume] in Blood Estimated from glycated hemoglobinon 11-27-2023 Average glucose Estimated from glycated hemoglobin (Bld) [Mass/Vol] 123 mg/dL [facility] Hematocrit Auto (Bld) [Volum e fraction]on 11-27-2023 Hematocrit (Bld) [Volume fraction] 38.9 % Low 42.0-54.0 [facility] Hemoglobin [Mass/volume] in Bloodon 11-27-2023 Hemoglobin (Bld) [Mass/Vol] 13.4 g/dL Low 14.0-18.0 [facility] Laboratory - Chemistry and C hemistry - challengeon 11-27-2023 Albumin [Mass/Vol] 3.8 g/dL 3.4-5.0 [facility] ALP [Catalytic activity/Vol] 65 U/L 46-116 [facility] ALT [Catalytic activity/Vol] 36 U/L 16-63 [facility] AST [Catalytic activity/Vol] 18 U/L 15-37 [facility] Bilirubin [Mass/Vol] 0.5 mg/dL 0.2-1.0 [facility] Calcium [Mass/Vol] 8.9 mg/dL 8.5-10.1 [facility] Chloride [Moles/Vol] 105 mmol/L 98-107 [facility] Cholesterol [Mass/Vol] 163 mg/dL <=200 [facility] Cholesterol in HDL [Mass/Vol] 47 mg/dL 40-60 [facility] Comment on above: > or =60 mg/dl - LOW CARDIOVASCULAR RISK<40 mg/dl - HIGH CARDIOVASCULAR RISK CO2 [Moles/Vol] 27.0 mmol/L 21.0-32.0 [facility] Cobalamin (Vitamin B12) [Mass/Vol] 337.0 pg/mL 193.0-986. 0 [facility] Creatinine [Mass/Vol] 1.12 mg/dL 0.70-1.30 [facility] GFR/1.73 sq M.predicted MDRD (S/P/Bld) [Vol rate/Area] mL/min/{1.73_m2} >=60 [facility] Glucose [Mass/Vol] 121 mg/dL High 74-106 [facility] Potassium [Moles/Vol] 4.1 mmol/L 3.5-5.1 [facility] Protein [Mass/Vol] 7.4 g/dL 6.4-8.2 [facility] Sodium [Moles/Vol] 140 mmol/L 136-145 [facility] Triglyceride [Mass/Vol] 103 mg/dL <=150 [facility] TSH Qn 2.249 m[IU]/L 0.358-3.74 0 [facility] Urate [Mass/Vol] 5.1 mg/dL 3.5-7.2 [facility] Urea nitrogen [Mass/Vol] 21.0 mg/dL High 7.0-18.0 [facility] Urea nitrogen/Creatinine [Mass ratio] 18.8 mg/mg [facility] Laboratory - Hematology and Cell countson 11-27-2023 HbA1c (Bld) [Mass fraction] 5.9 % 4.5-6.2 [facility] Comment on above: ADA RECOMMENDED LIMI T 4.0 - 6.0ADA THERAPEUTIC TARGET < 7.0ACTION SUGGESTED> 7.0 Immature granulocytes/100 WBC (Bld) 0.3 % 0.0-0.5 [facility] Leukocytes [#/volume] correc monica for nucleated erythrocytes in Blood by Automated counon 11-27-2023 WBC corrected for nucl RBC Auto (Bld) [#/Vol] 7.0 10 3/uL 4.0-11.0 [facility] Lymphocytes Auto (Bld) [#/Vo l]on 11-27-2023 Lymphocytes (Bld) [#/Vol] 1.2 10 3/uL 1.2-3.8 [facility] Lymphocytes/100 WBC Auto (Bl d)on 11-27-2023 Lymphocytes/100 WBC (Bld) 16.5 % Low 20.5-60.0 [facility] MCH Auto (RBC) [Entitic mass ]on 11-27-2023 MCH (RBC) [Entitic mass] 32.0 pg 25.9-34.0 [facility] MCHC Auto (RBC) [Mass/Vol]on 11-27-2023 MCHC (RBC) [Mass/Vol] 34.4 g/dL 29.9-35.2 [facility] MCV Auto (RBC) [Entitic vol] on 11-27-2023 MCV (RBC) [Entitic vol] 92.8 fL 80.0-94.0 [facility] Monocytes Auto (Bld) [#/Vol] on 11-27-2023 Monocytes (Bld) [#/Vol] 0.5 10 3/uL 0.3-0.8 [facility] Monocytes/100 WBC Auto (Bld) on 11-27-2023 Monocytes/100 WBC (Bld) 7.4 % 1.7-12.0 [facility] Neutrophils Auto (Bld) [#/Vo l]on 11-27-2023 Neutrophils (Bld) [#/Vol] 4.9 10 3/uL 1.4-6.5 [facility] Neutrophils/100 WBC Auto (Bl d)on 11-27-2023 Neutrophils/100 WBC (Bld) 69.7 % 43.0-75.0 [facility] No Panel Informationon 11-26 Eosinophils # (Auto) 0.4 10 3/uL 0.0-0.7 [facility] Immature Granulocyte # (Auto) 0.02 10 3/uL 0.00-0.03 [facility] Prostate Specific Antigen Total <0.13 ng/mL <=4.00 [facility] Platelet mean volume Auto (B ld) [Entitic vol]on 11-27-2023 Platelet mean volume (Bld) [Entitic vol] 10.1 fL 9.5-13.5 [facility] Platelets Auto (Bld) [#/Vol] on 11-27-2023 Platelets (Bld) [#/Vol] 212 10 3/uL 150-450 [facility] RBC Auto (Bld) [#/Vol]on RBC (Bld) [#/Vol] 4.19 10 6/uL Low 4.70-6.10 [facility] Serum or plasma albumin/glob ulin mass ratioon 11-27-2023 Albumin/Globulin [Mass ratio] 1.1 {ratio} [facility] Serum or plasma anion gap de terminationon 11-27-2023 Anion gap [Moles/Vol] 12.1 mmol/L [facility] Serum or plasma total choles terol/high density lipoprotein (HDL) cholesterol mass nani 11-27-2023 Cholesterol.total/Lina sterol in HDL [Mass ratio] 3.5 {ratio} [facility] Comment on above: 3.3 - 4.4 LOW RISK4. 4 - 7.1 AVERAGE RISK7.1 - 11.0 MODERATE RISK>11.0 HIGH RISK Capillary blood glucose abelardo urement by glucometer (mass/volume)Ordered By: Nimesh Akhtar on 09-24-2023 Glucose [Mass/Vol] 115 mg/dL [facility] Comment on above: Random Glucose Refer ence Range is dependent on time and content of last meal. Glucose of more than 200 mg/dL in a nonstressed, ambulatory subject supports the diagnosis of Diabetes Mellitus. Result Comment: [place] om Glucose Reference Range is dependent on time and content of last meal. Glucose of more than 200 mg/dL in a nonstressed, ambulatory subject supports the diagnosis of Diabetes Mellitus. PERFORMED BY: [facility] [address] [facility] [place] [address] PATHOLOGIST FOIL WRAPPER MARÍA ELENA MCCOY M.D. Performed By: #### G LULS #### Point of Care testing , [facility] 09-24-2023 L Specimen: [id number] Received: 09/24/23 Status: BRODY Zarco Num: [id number] Spec Type: Surgical Subm Dr: Nimesh Akhtar MD Tissues: A Colon Biopsy (TRANSV POLYP) Procedures: HE/2, Gross/Micro L4 Age/ Patient Sex Location Account Attending Physician Isiah Paez 73/M [id number] Nimesh Akhtar MD SPEC NUM: [id number] RECD: 09/24/23 STATUS: BRODY POLANCO NUM: [id number] EMELINA: 09/24/23 DR: Nimesh Akhtar MD ENTERED: 09/24/23 [facility]: SPEC TYPE: Surgical DEPT: S ORDERED: HE/2, Gross/Micro L4 ORDERED: HE/2, Gross/Micro L4 Pathological Diagnosis Polyp, transverse colon, biopsy: Hyperplastic polyp. Clinical Information Colon polyps Gross Description Received in formalin, labeled with the patient's name, date of and transverse colon polyp are multiple martinez polypoid tissue fragments admixed with vegetable material measuring in aggregate 1.6 x 0.8 x 0.2 cm, entirely submitted in A1. CPT Codes 05254 Specimen: [id number] Received: 09/24/23 Status: BRODY Zarco Num: [id number] Spec Type: Surgical Subm Dr: Nimesh Akhtar MD Tissues: A Colon Biopsy (TRANSV POLYP) Procedures: HE/2, Gross/Micro L4 Patient: Isiah Paez [id number] (Continued) Signed (signature on file) Gelacio Easley MD 09/25/23 1529 Normal [facility] Influenza virus B Ag [Presen ce] in Upper respiratory specimen by Rapid immunoassayon 09-09-2023 FLUBV Ag IA.rapid Ql (Nph) Negative [facility] No Panel Informationon 09-08 Influenza Type A (Rapid) Negative [facility] POC SARS CoV-2 Antigen Negative [facility] No Panel InformationOrdered By: Kaveh Tran on 09-09-2023 RSV (POC) [facility] Alanine aminotransferase [En zymatic activity/volume] in Serum or PlasmaOrdered By: Christofer Devi on 06-24-2023 ALT [Catalytic activity/Vol] 26 U/L Normal 7-52 [facility] Comment on above: Performed By: #### C MP, CBC, URIC #### [address] Albumin [Mass/volume] in Ser um or Plasma by Bromocresol green (BCG) dye binding methoOrdered By: Christofer Devi on 06-24-2023 Albumin BCG dye [Mass/Vol] 4.3 g/dL 3.5-5.7 [facility] Alkaline phosphatase [Enzyma tic activity/volume] in Serum or PlasmaOrdered By: Christofer Devi on 06-24-2023 ALP [Catalytic activity/Vol] 59 U/L Normal 34-104 [facility] Comment on above: Performed By: #### C MP, CBC, URIC #### [address] Aspartate aminotransferase [ Enzymatic activity/volume] in Serum or PlasmaOrdered By: Christofer Devi on 06-24-2023 AST [Catalytic activity/Vol] 21 U/L Normal 13-39 [facility] Comment on above: Performed By: #### C MP, CBC, URIC #### [address] Automated basophil %Ordered By: Christofer Devi on 06-24-2023 Basophils/100 WBC (Bld) 0.8 % Normal . [facility] Comment on above: Performed By: #### C MP, CBC, URIC #### [address] Automated basophil countOrde red By: Christofer Devi on 06-24-2023 Basophils (Bld) [#/Vol] 0.1 10*3/uL Normal 0.0-0.2 [facility] Comment on above: Result Comment: PERF ORMED BY: [place] [address] PATHOLOGIST FOIL WRAPPER MARÍA ELENA MCCOY M.D. Performed By: #### C MP, CBC, URIC #### [address] Automated blood monocyte cou ntOrdered By: Christofer Devi on 06-24-2023 Monocytes (Bld) [#/Vol] 0.5 10*3/uL Normal 0.0-0.8 [facility] Comment on above: Performed By: #### C MP, CBC, URIC #### [address] Automated eosinophil %Ordere d By: Christofer Devi on 06-24-2023 Eosinophils/100 WBC (Bld) 4.9 % Normal . [facility] Comment on above: Performed By: #### C MP, CBC, URIC #### [address] Automated eosinophil countOr dered By: Christofer Devi on 06-24-2023 Eosinophils (Bld) [#/Vol] 0.3 10*3/uL Normal 0.0-0.45 [facility] Comment on above: Performed By: #### C MP, CBC, URIC #### [address] Automated monocyte %Ordered By: Christofer Devi on 06-24-2023 Monocytes/100 WBC (Bld) 8.9 % Normal . [facility] Comment on above: Performed By: #### C MP, CBC, URIC #### [address] Automated neutrophil %Ordere d By: Christofer Devi on 06-24-2023 Neutrophils/100 WBC (Bld) 67.6 % Normal . [facility] Comment on above: Performed By: #### C MP, CBC, URIC #### [address] Bilirubin.total [Mass/volume ] in Serum or PlasmaOrdered By: Christofer Devi on 06-24-2023 Bilirubin [Mass/Vol] 0.4 mg/dL Normal 0.3-1.0 [facility] Comment on above: Performed By: #### C MP, CBC, URIC #### [place] [address] [place] Calcium [Mass/volume] in Ser um or PlasmaOrdered By: Christofer Devi on 06-24-2023 Calcium [Mass/Vol] 9.3 mg/dL Normal 8.6-10.3 [facility] Comment on above: Performed By: #### C MP, CBC, URIC #### [address] Carbon dioxide, total [Moles /volume] in Serum or PlasmaOrdered By: Christofer Devi on 06-24-2023 CO2 [Moles/Vol] 29.0 mmol/L Normal 21.0-31.0 [facility] Comment on above: Performed By: #### C MP, CBC, URIC #### [place] [address] [place] Chloride [Moles/volume] in S deny or PlasmaOrdered By: Christofer Devi on 06-24-2023 Chloride [Moles/Vol] 103 mmol/L Normal 98-107 [facility] Comment on above: Performed By: #### C MP, CBC, URIC #### [address] Complete Blood Count Auto Di ffon 06-24-2023 Mean Corpuscular HGB Conc 34.1 g/dL Normal 32.5-35.6 [facility] Comment on above: Performed By: #### C MP, CBC, URIC #### [facility] [address] [place] [address] NRBC% 0.1 /100{WBC} Normal 0-0.5 [facility] Comment on above: Performed By: #### C MP, CBC, URIC #### [facility] [address] [place] [address] Comprehensive Metabolic Pane shweta 06-24-2023 Albumin [Mass/Vol] 4.3 g/dL Normal 3.5-5.7 [facility] Comment on above: Performed By: #### C MP, CBC, URIC #### [address] GFR/1.73 sq M.predicted MDRD (S/P/Bld) [Vol rate/Area] mL/min/{1.73_m2} Normal [facility] Comment on above: Performed By: #### C MP, CBC, URIC #### [facility] [address] [place] [address] Creatinine [Mass/volume] in Serum or PlasmaOrdered By: Christofer Devi on 06-24-2023 Creatinine [Mass/Vol] 1.16 mg/dL Normal 0.70-1.30 [facility] Comment on above: Performed By: #### C MP, CBC, URIC #### [address] Erythrocyte distribution wid th [Ratio] by Automated countOrdered By: Christofer Devi on 06-24-2023 Erythrocyte distribution width (RBC) [Ratio] 13.8 % Normal 12.0-14.8 [facility] Comment on above: Performed By: #### C MP, CBC, URIC #### [facility] [address] Erythrocytes [#/volume] in B lood by Automated countOrdered By: Christofer Devi on 06-24-2023 RBC (Bld) [#/Vol] 4.14 10*6/uL Normal 3.90-5.60 [facility] Comment on above: Performed By: #### C MP, CBC, URIC #### [facility] [address] Glucose [Mass/volume] in Ser um or PlasmaOrdered By: Christofer Devi on 06-24-2023 Glucose [Mass/Vol] 136 mg/dL High 70-100 [facility] Comment on above: ADA recommended refe rence rangeRandom Glucose Reference Range is dependent on time and content of last meal. Glucose of more than 200 mg/dL in a nonstressed, ambulatory subject supports the diagnosis of Diabetes Mellitus. Result Comment: [place] om Glucose Reference Range is dependent on time and content of last meal. Glucose of more than 200 mg/dL in a nonstressed, ambulatory subject supports the diagnosis of Diabetes Mellitus. ADA recommended reference range Performed By: #### C MP, CBC, URIC #### [address] Hematocrit [Volume Fraction] of Blood by Automated countOrdered By: Christofer Devi on 06-24-2023 Hematocrit (Bld) [Volume fraction] 38.3 % Low 38.8-50.0 [facility] Comment on above: Performed By: #### C MP, CBC, URIC #### [facility] [address] [place] [address] [place] Hemoglobin [Mass/volume] in BloodOrdered By: Christofer Devi on 06-24-2023 Hemoglobin (Bld) [Mass/Vol] 13.1 g/dL Normal 13.0-17.0 [facility] Comment on above: Performed By: #### C MP, CBC, URIC #### [facility] [address] [place] [address] Leukocytes [#/volume] correc monica for nucleated erythrocytes in Blood by Automated counOrdered By: Christofer Devi on 06-24-2023 WBC corrected for nucl RBC Auto (Bld) [#/Vol] 6.1 10*3/uL 4.1-10.5 [facility] Leukocytes [#/volume] in Blo od by Automated countOrdered By: Christofer Devi on 06-24-2023 WBC (Bld) [#/Vol] 6.1 10*3/uL Normal 4.1-10.5 [facility] Comment on above: Performed By: #### C MP, CBC, URIC #### [facility] [address] [place] [address] Lymphocytes [#/volume] in Bl ood by Automated countOrdered By: Christofer Devi on 06-24-2023 Lymphocytes (Bld) [#/Vol] 1.1 10*3/uL Normal 1.00-4.8 [facility] Comment on above: Performed By: #### C MP, CBC, URIC #### [facility] [address] [place] [address] Lymphocytes/100 leukocytes i n Blood by Automated countOrdered By: Christofer Devi on 06-24-2023 Lymphocytes/100 WBC (Bld) 17.8 % Normal . [facility] Comment on above: Performed By: #### C MP, CBC, URIC #### [facility] [address] [place] [address] MCH [Entitic mass] by Automa monica countOrdered By: Christofer Devi on 06-24-2023 MCH (RBC) [Entitic mass] 31.6 pg Normal 27.5-35.2 [facility] Comment on above: Performed By: #### C MP, CBC, URIC #### [facility] [address] [place] [address] MCHC Auto (RBC) [Mass/Vol]Or dered By: Christofer Devi on 06-24-2023 MCHC (RBC) [Mass/Vol] 34.1 g/dL 32.5-35.6 [facility] MCV [Entitic volume] by Auto mated countOrdered By: Christofer Devi on 06-24-2023 MCV (RBC) [Entitic vol] 92.6 fL Normal 83.5-101 [facility] Comment on above: Performed By: #### C MP, CBC, URIC #### [address] Neutrophils [#/volume] in Bl ood by Automated countOrdered By: Christofer Devi on 06-24-2023 Neutrophils (Bld) [#/Vol] 4.1 10*3/uL Normal 1.8-7.7 [facility] Comment on above: Performed By: #### C MP, CBC, URIC #### [address] No Panel InformationOrdered By: Christofer Devi on 06-24-2023 Estimated GFR (CKD-EPI) > 60.0 mL/Min [facility] Creatinine Clearance (Chem N/A [facility] Nucleated erythrocytes [Pres ence] in Blood by Automated countOrdered By: Christofer Devi on 06-24-2023 Nucleated RBC Auto Ql (Bld) 0.1 /100{WBC} 0-0.5 [facility] Platelet mean volume [Entiti c volume] in Blood by Automated countOrdered By: Christofer Devi on 06-24-2023 Platelet mean volume (Bld) [Entitic vol] 8.6 fL Normal 6.6-10.1 [facility] Comment on above: Performed By: #### C MP, CBC, URIC #### [address] Platelets [#/volume] in Bloo d by Automated countOrdered By: Christofer Devi on 06-24-2023 Platelets (Bld) [#/Vol] 234 10*3/uL Normal 150-450 [facility] Comment on above: Performed By: #### C MP, CBC, URIC #### [address] Potassium [Moles/volume] in Serum or PlasmaOrdered By: Christofer Devi on 06-24-2023 Potassium [Moles/Vol] 4.0 mmol/L Normal 3.5-5.1 [facility] Comment on above: Performed By: #### C MP, CBC, URIC #### [address] Protein [Mass/volume] in Ser um or PlasmaOrdered By: Christofer Devi on 06-24-2023 Protein [Mass/Vol] 7.0 g/dL Normal 6.4-8.9 [facility] Comment on above: Performed By: #### C MP, CBC, URIC #### [address] Serum globulin measurement b y calculation (mass/volume)Ordered By: Christofer Devi on 06-24-2023 Globulin (S) [Mass/Vol] 2.7 g/dL Normal [facility] Comment on above: Performed By: #### C MP, CBC, URIC #### [address] Serum or plasma albumin/glob ulin mass ratioOrdered By: Christofer Devi on 06-24-2023 Albumin/Globulin [Mass ratio] 1.6 {ratio} Normal [facility] Comment on above: Performed By: #### C MP, CBC, URIC #### [address] Serum or plasma anion gap de terminationOrdered By: Christofer Devi on 06-24-2023 Anion gap [Moles/Vol] 11.0 mmol/L Normal 6.0-15.0 [facility] Comment on above: Performed By: #### C MP, CBC, URIC #### [place] [address] [place] Sodium [Moles/volume] in Ser um or PlasmaOrdered By: Christofer Devi on 06-24-2023 Sodium [Moles/Vol] 139 mmol/L Normal 136-145 [facility] Comment on above: Performed By: #### C MP, CBC, URIC #### [facility] [address] [place] [address] Urate [Mass/volume] in Serum or PlasmaOrdered By: Christofer Devi on 06-24-2023 Urate [Mass/Vol] 6.1 mg/dL Normal 4.4-7.6 [facility] Comment on above: Result Comment: PERF ORMED BY: [place] [address] PATHOLOGIST FOIL WRAPPER MARÍA ELENA MCCOY M.D. Performed By: #### C MP, CBC, URIC #### [facility] [address] Urea nitrogen [Mass/volume] in Serum or PlasmaOrdered By: Christofer Devi on 06-24-2023 Urea nitrogen [Mass/Vol] 18 mg/dL Normal 7-25 [facility] Comment on above: Performed By: #### C MP, CBC, URIC #### [facility] [address] [place] [id number] [facility] COVID + FLU Quick Testingon 03-21-2023 SARS-CoV-2 (COVID-19) RNA RENARD+probe Ql (Unsp spec) Positive [employer] Other COVID + FLU Quick Testing Negative [employer] Other Quick Strepon 03-21-2023 S. pyogenes Org specific cx Ql (Throat) postive BrainSINS Other Quick Strep Teachernow [facility] Profyle Other RSVon 03-21-2023 RSV Ag IA Ql (Unsp spec) Negative [employer] Other Consenton 02-18-2023 Consent [id number] F Normal [facility] Ambulatory Visit Summaryon 1 Ambulatory Visit Summary ISIAH PAEZ :1950 Visit Date:02/17/2023 Ambulatory Visit Instructions Your Diagnosis Erectile dysfunction after radical prostatectomy H/O prostate cancer Your Care Team Attending Physician - TOÑITO VIGIL, Anthony R Primary Care Physician - KAVEH TRAN DO This Is Your Medications List Contact prescribing physician if questions or concerns allopurinol (allopurinol 300 mg Tab) cyanocobalamin (cyanocobalamin 1000 mcg/mL Inj) cyclobenzaprine (cyclobenzaprine 10 mg Tab) gabapentin (gabapentin 100 mg Cap) gabapentin (gabapentin 600 mg Tab) hydrochlorothiazide-olme sartan (hydrochlorothiazide-olm esartan 12.5 mg-20 mg Tab) meloxicam (meloxicam 7.5 mg oral tablet) metformin (metformin 500 mg Tab) multivitamin (Vitamin B Complex oral tablet) multivitamin with minerals (Multivitamin, Therapeutic w/ Minerals) ropinirole (ropinirole 0.5 mg Tab) ropinirole (ropinirole 1 mg Tab) simvastatin (simvastatin 20 mg Tab) Procedures Performed Total knee replacement (12/03/2021), Arthroscopy of knee (04/04/2020), External beam radiotherapy (06/10/2014), Radical prostatectomy (09/23/2012), Transrectal biopsy of prostate using ultrasound (US) guidance (07/22/2012), CE - Cataract extraction, Fusion of lumbar spine. Discharge Vitals Heart Rate (Peripheral) 86 Respiratory Rate 16 Blood Pressure 133/79 Height 170 cm Height 67 in Weight 96.1 kg Weight 211.42 lb BMI 33.25 What to do next You Need to Schedule the Following Appointments Follow Up with TOÑITO VIGIL, GALA Rutherford When: Where: [facility] [address] , [place] [address]- [phone] Medications What How Much When Instructions Unchanged allopurinol (allopurinol 300 mg Tab) Contact prescribing physician if questions or concerns Unchanged cyanocobalamin (cyanocobalamin 1000 mcg/ mL Inj) Contact prescribing physician if questions or concerns Unchanged cyclobenzaprine (cyclobenzaprine 10 mg Tab) 1 Tablets By Mouth 3 times a day as needed for for spasm Contact prescribing physician if questions or concerns Unchanged gabapentin (gabapentin 100 mg Cap) 5 cap By Mouth Every day Contact prescribing physician if questions or concerns Unchanged gabapentin (gabapentin 600 mg Tab) Contact prescribing physician if questions or concerns Unchanged hydrochlorothiazide-olme sartan (hydrochlorothiazide-olm esartan 12.5 mg-20 mg Tab) 1 Tablets By Mouth Every day Contact prescribing physician if questions or concerns Unchanged meloxicam (meloxicam 7.5 mg oral tablet) 1 Tablets By Mouth Every day Contact prescribing physician if questions or concerns Unchanged metformin (metformin 500 mg Tab) Contact prescribing physician if questions or concerns Unchanged multivitamin (Vitamin B Complex oral tablet) 1 Tablets By Mouth 2 times a day Contact prescribing physician if questions or concerns Unchanged multivitamin with minerals (Multivitamin, Therapeutic w/ Minerals) 1 Tablets By Mouth 2 times a day Contact prescribing physician if questions or concerns Unchanged ropinirole (ropinirole 0.5 mg Tab) 1 Tablets By Mouth At bedtime Contact prescribing physician if questions or concerns Unchanged ropinirole (ropinirole 1 mg Tab) 1 Tablets By Mouth At bedtime Contact prescribing physician if questions or concerns Unchanged simvastatin (simvastatin 20 mg Tab) 1 Tablets By Mouth Every day Contact prescribing physician if questions or concerns Allergies No Known Allergies Problems Ongoing - Any problem that you are currently receiving treatment for. Apnea, sleep BMI 37.0-37.9, adult Erectile dysfunction after radical prostatectomy H/O prostate cancer Hard of hearing Hyperlipidemia Nocturia Historical - Any problem that you are no longer receiving treatment for. BPH (benign prostatic hyperplasia) Elevated PSA Hypertension Patient Survey You may receive a survey via text or e-mail asking about your office visit. Please share your experience with us by completing your survey. We appreciate your feedback and thank you for choosing us for your care. Education Materials Erectile Dysfunction Erectile dysfunction (ED) is the inability to get or keep an erection in order to have sexual intercourse. ED is considered a symptom of an underlying disorder and is not considered a disease. ED may include: ? Inability to get an erection. ? Lack of enough hardness of the erection to allow penetration. ? Loss of erection before sex is finished. What are the causes? This condition may be caused by: ? Physical causes, such as: ? Artery problems. This may include heart disease, high blood pressure, atherosclerosis, and diabetes. ? Hormonal problems, such as low testosterone. ? Obesity. ? Nerve problems. This may include back or pelvic injuries, multiple sclerosis, Parkinson's disease, spinal cord injury, and stroke. ? Certain medicines, such as: ? Pain relievers. ? (more content not included)... Normal [facility] Patient Educationon 02-18-20 23 Patient Education Urology Erectile Dysfunction Erectile dysfunction (ED) is the inability to get or keep an erection in order to have sexual intercourse. ED is considered a symptom of an underlying disorder and is not considered a disease. ED may include: ? Inability to get an erection. ? Lack of enough hardness of the erection to allow penetration. ? Loss of erection before sex is finished. What are the causes? This condition may be caused by: ? Physical causes, such as: ? Artery problems. This may include heart disease, high blood pressure, atherosclerosis, and diabetes. ? Hormonal problems, such as low testosterone. ? Obesity. ? Nerve problems. This may include back or pelvic injuries, multiple sclerosis, Parkinson's disease, spinal cord injury, and stroke. ? Certain medicines, such as: ? Pain relievers. ? Antidepressants. ? Blood pressure medicines and water pills (diuretics). ? Cancer medicines. ? Antihistamines. ? Muscle relaxants. ? Lifestyle factors, such as: ? Use of drugs such as marijuana, cocaine, or opioids. ? Excessive use of alcohol. ? Smoking. ? Lack of physical activity or exercise. ? Psychological causes, such as: ? Anxiety or stress. ? Sadness or depression. ? Exhaustion. ? Fear about sexual performance. ? Guilt. What are the signs or symptoms? Symptoms of this condition include: ? Inability to get an erection. ? Lack of enough hardness of the erection to allow penetration. ? Loss of the erection before sex is finished. ? Sometimes having normal erections, but with frequent unsatisfactory episodes. ? Low sexual satisfaction in either partner due to erection problems. ? A curved penis occurring with erection. The curve may cause pain, or the penis may be too curved to allow for intercourse. ? Never having nighttime or morning erections. How is this diagnosed? This condition is often diagnosed by: ? Performing a physical exam to find other diseases or specific problems with the penis. ? Asking you detailed questions about the problem. ? Doing tests, such as: ? Blood tests to check for diabetes mellitus or high cholesterol, or to measure hormone levels. ? Other tests to check for underlying health conditions. ? An ultrasound exam to check for scarring. ? A test to check blood flow to the penis. ? Doing a sleep study at home to measure nighttime erections. How is this treated? This condition may be treated by: ? Medicines, such as: ? Medicine taken by mouth to help you achieve an erection (oral medicine). ? Hormone replacement therapy to replace low testosterone levels. ? Medicine that is injected into the penis. Your health care provider may instruct you how to give yourself these injections at home. ? Medicine that is delivered with a short applicator tube. The tube is inserted into the opening at the tip of the penis, which is the opening of the urethra. A tiny pellet of medicine is put in the urethra. The pellet dissolves and enhances erectile function. This is also called MUSE (medicated urethral system for erections) therapy. ? Vacuum pump. This is a pump with a ring on it. The pump and ring are placed on the penis and used to create pressure that helps the penis become erect. ? Penile implant surgery. In this procedure, you may receive: ? An inflatable implant. This consists of cylinders, a pump, and a reservoir. The cylinders can be inflated with a fluid that helps to create an erection, and they can be deflated after intercourse. ? A semi-rigid implant. This consists of two silicone rubber rods. The rods provide some rigidity. They are also flexible, so the penis can both curve downward in its normal position and become straight for sexual intercourse. ? Blood vessel surgery to improve blood flow to the penis. During this procedure, a blood vessel from a different part of the body is placed into the penis to allow blood to flow around (bypass) damaged or blocked blood vessels. ? Lifestyle changes, such as exercising more, losing weight, and quitting smoking. Follow these instructions at home: Medicines ? Take [id number]-[id number] and prescription medicines only as told by your health care provider. Do not increase the dosage without first discussing it with your health care provider. ? If you are using self-injections, do injections as directed by your health care provider. Make sure you avoid any veins that are on the surface of the penis. After giving an injection, apply pressure to the injection site for 5 minutes. ? Talk to your health care provider about how to prevent headaches while taking ED medicines. These medicines may cause a sudden headache due to the increase in blood flow in your body. General instructions ? Exercise regularly, as directed by your health care provider. Work with your health care provider to lose weight, if needed. ? Do not use any products that contain nicotine or tobacco. These products include cig (more content not included)... Normal [facility] Urology Office/Clinic Noteon 02-17-2023 Urology Office/Clinic Note Chief Complaint learn P4 injections HPI Staff 72 yo male here to re-learn 4P inj. SIGNED CONSENT? Previous Dx: h/o prostate ca, ED after radical prostatectomy. S/p TRUS/bx 07/22/12, radical prostatectomy 09/23/12, and EBRT 06/10/14. Dysuria: no Incomplete bladder emptying: no Hematuria: no Frequency: no Urgency: sometimes Nocturia: 1x Stream: good steady Leaking: no Post void dripping: no Wearing pads/ Depends: wears a pad to the gym Urge incontinence: no Stress incontinence: yes with lifting Incontinence without Sensory Awareness: no Abdominal pain: no Flank pain: no Sexual complaints: here to relearn P4 injections History of Present Illness Tests reviewed: none I have reviewed the previous health record information and history for this patient from Dr. Sibley. I have reviewed and verified the staff HPI to be accurate for this encounter. Review of Systems PHQ Score Initial Depression Screen Score: 0 ROS - Provider Constitutional: denies weight loss, denies hot flashes. Eyes: denies eye problems. Gastrointestinal: denies nausea, denies vomiting. Cardiovascular: denies chest pain or angina. Integumentary: no dryness Musculoskeletal: denies musculoskeletal symptoms. ENMT: denies otolaryngeal symptoms. Respiratory: no shortness of breath. Heme/Lymph: denies easy bleeding tendency, denies easy bruising tendency. Psychiatric: no confusion, no anxiety. Genitourinary: See HPI. Physical Exam Vitals & Measurements HR: 86(Peripheral) RR: 16 BP: 133/79 HT: 67 in HT: 170 cm WT: 96.1 kg WT: 211.42 lb BMI: 33.25 General Appearance: alert, no distress, well nourished, well developed male. Genitourinary: normal scrotum, normal testes, normal urethra, normal epididymis, normal vas deferens/spermatic cord. Flank Pain: none. Bladder: nonpalpable. Assessment/Plan 1. Erectile dysfunction after radical prostatectomy (N52.31: Erectile dysfunction following radical prostatectomy) Pt did 3P 0.2-0.3mL injections prn in 2020 which worked well. Unable to achieve an erection on his own. The patient was instructed on the proper technique draw up and self inject the erection medication 10units into the L corpora cavernosa today. He demonstrated good understanding of the proper location for injection and the areas that he should avoid. He clearly understands the risks involved, which include bleeding, formation of hard nodules (scar) at the injection site, and the risk of priapism, which is an erection which will not dissipate. He understands that, if there is an erection which lasts for over four hours he should either contact the office immediately or go to the Emergency Room. He is aware that this priapism is dangerous and can result in severe pain and subsequent inability to obtain an erection at all in the future. Despite demonstrating good understanding of the injection technique and the risks involved, he wishes to proceed. Full informed consent has been obtained. Follow up if needed. All questions/concerns were discussed. Pt to call the office if he encounters any issues prior. Pt acknowledges understanding. 2. H/O prostate cancer (Z85.46: Personal history of malignant neoplasm of prostate) S/p TRUS/bx 07/22/12 - GS 7 (3+4) in 5 cores. S/p radical prostatectomy 09/23/12 and EBRT 06/10/14. PSA 05/24/20 - 0.05 08/17/21 - <0.13 08/21/22 - <0.13 01/22/23 - <0.13 PSA checked by PCP and to continue to follow up with PCP. Follow-up With When Contact Information TOÑITO VIGIL, Anthony Krause, URL [facility] [address], [place] [address] [phone] Additional Instructions: PRN Patient Education Erectile Dysfunction IFang, personally scribed for Dr. Sibley on 02/17/2023 13:32:18. . Documentation recorded by the Fang wallace, accurately reflects the services(s) I performed and decisions made by me. Authenticated by Dr. Sibley on 02/17/2023 13:38:24. Problem List/Past Medical History Ongoing Apnea, sleep BMI 37.0-37.9, adult Erectile dysfunction after radical prostatectomy H/O prostate cancer Hard of hearing Hyperlipidemia Nocturia Historical BPH (benign prostatic hyperplasia) Elevated PSA Hypertension Procedure/Surgical History Total knee replacement (12/03/2021), Arthroscopy of knee (04/04/2020), External beam radiotherapy (06/10/2014), Radical prostatectomy (09/23/2012), Transrectal biopsy of prostate using ultrasound (US) guidance (07/22/2012), CE - Cataract extraction, Fusion of lumbar spine. Medications allopurinol 300 mg Tab cyanocobalamin 1000 mcg/mL Inj cyclobenzaprine 10 mg Tab, 10 mg= 1 tab(s), Oral, TID, PRN gabapentin 100 mg Cap, 5 cap, Oral, Daily gabapentin 600 mg Tab hydrochlorothiazide-olme sartan 12.5 mg-20 mg Tab, 1 tab(s), Oral, Daily meloxicam 7.5 mg oral tablet, 7.5 mg= 1 tab(s), Oral, Daily metformin 500 mg Tab Multivitamin, Therapeutic w/ Minerals, (more content not included)... [facility] Comment on above: Result Comment: Elec tronically Signed By: Anthony SIBLEY MD\.br\Date and Time Signed: 02/17/23 13:38 EDT\.br\Electronically Co-Signed By: Fang Kinney\.br\Date and Time Co-Signed: 02/17/23 13:33 EDT Lab Reportson 01-27-2023 Lab Reports [id number] F [facility] Retail - Clinical Noteon Retail - Clinical Note [id number] F [facility] Patient Educationon 01-25-20 Patient Education Urology Erectile Dysfunction Erectile dysfunction (ED) is the inability to get or keep an erection in order to have sexual intercourse. ED is considered a symptom of an underlying disorder and is not considered a disease. ED may include: ? Inability to get an erection. ? Lack of enough hardness of the erection to allow penetration. ? Loss of erection before sex is finished. What are the causes? This condition may be caused by: ? Physical causes, such as: ? Artery problems. This may include heart disease, high blood pressure, atherosclerosis, and diabetes. ? Hormonal problems, such as low testosterone. ? Obesity. ? Nerve problems. This may include back or pelvic injuries, multiple sclerosis, Parkinson's disease, spinal cord injury, and stroke. ? Certain medicines, such as: ? Pain relievers. ? Antidepressants. ? Blood pressure medicines and water pills (diuretics). ? Cancer medicines. ? Antihistamines. ? Muscle relaxants. ? Lifestyle factors, such as: ? Use of drugs such as marijuana, cocaine, or opioids. ? Excessive use of alcohol. ? Smoking. ? Lack of physical activity or exercise. ? Psychological causes, such as: ? Anxiety or stress. ? Sadness or depression. ? Exhaustion. ? Fear about sexual performance. ? Guilt. What are the signs or symptoms? Symptoms of this condition include: ? Inability to get an erection. ? Lack of enough hardness of the erection to allow penetration. ? Loss of the erection before sex is finished. ? Sometimes having normal erections, but with frequent unsatisfactory episodes. ? Low sexual satisfaction in either partner due to erection problems. ? A curved penis occurring with erection. The curve may cause pain, or the penis may be too curved to allow for intercourse. ? Never having nighttime or morning erections. How is this diagnosed? This condition is often diagnosed by: ? Performing a physical exam to find other diseases or specific problems with the penis. ? Asking you detailed questions about the problem. ? Doing tests, such as: ? Blood tests to check for diabetes mellitus or high cholesterol, or to measure hormone levels. ? Other tests to check for underlying health conditions. ? An ultrasound exam to check for scarring. ? A test to check blood flow to the penis. ? Doing a sleep study at home to measure nighttime erections. How is this treated? This condition may be treated by: ? Medicines, such as: ? Medicine taken by mouth to help you achieve an erection (oral medicine). ? Hormone replacement therapy to replace low testosterone levels. ? Medicine that is injected into the penis. Your health care provider may instruct you how to give yourself these injections at home. ? Medicine that is delivered with a short applicator tube. The tube is inserted into the opening at the tip of the penis, which is the opening of the urethra. A tiny pellet of medicine is put in the urethra. The pellet dissolves and enhances erectile function. This is also called MUSE (medicated urethral system for erections) therapy. ? Vacuum pump. This is a pump with a ring on it. The pump and ring are placed on the penis and used to create pressure that helps the penis become erect. ? Penile implant surgery. In this procedure, you may receive: ? An inflatable implant. This consists of cylinders, a pump, and a reservoir. The cylinders can be inflated with a fluid that helps to create an erection, and they can be deflated after intercourse. ? A semi-rigid implant. This consists of two silicone rubber rods. The rods provide some rigidity. They are also flexible, so the penis can both curve downward in its normal position and become straight for sexual intercourse. ? Blood vessel surgery to improve blood flow to the penis. During this procedure, a blood vessel from a different part of the body is placed into the penis to allow blood to flow around (bypass) damaged or blocked blood vessels. ? Lifestyle changes, such as exercising more, losing weight, and quitting smoking. Follow these instructions at home: Medicines ? Take bllx-tye-faxcvci and prescription medicines only as told by your health care provider. Do not increase the dosage without first discussing it with your health care provider. ? If you are using self-injections, do injections as directed by your health care provider. Make sure you avoid any veins that are on the surface of the penis. After giving an injection, apply pressure to the injection site for 5 minutes. ? Talk to your health care provider about how to prevent headaches while taking ED medicines. These medicines may cause a sudden headache due to the increase in blood flow in your body. General instructions ? Exercise regularly, as directed by your health care provider. Work with your health care provider to lose weight, if needed. ? Do not use any products that contain nicotine or tobacco. These products include cig (more content not included)... Normal [facility] Urology Office/Clinic Noteon 01-24-2023 Urology Office/Clinic Note Chief Complaint H/O prostate cancer HPI Staff 72 yo male here for 17 month f/u with PSA. Previous Dx: nocturia, ED after radical prostatectomy, h/o prostate ca, urge incontinence. S/p EBRT 06/10/14, radical prostatectomy 09/23/12, TRUS/bx 07/22/12. Current PSA 08/21/22 is <0.13. Dysuria: no Incomplete bladder emptying: no Hematuria: no Frequency: no Urgency: once in a while with caffein Nocturia: 1x Stream: good steady stream Leaking: only with stress Post void dripping: Wearing pads/ Depends: wears a pad to the gym Urge incontinence: no Stress incontinence: with lifting and some exercises Incontinence without Sensory Awareness: no Abdominal pain: no Flank pain: no Sexual complaints: no History of Present Illness Tests reviewed: reviewed UA, PSA I have reviewed the previous health record information and history for this patient from Dr. Sibley. I have reviewed and verified the staff HPI to be accurate for this encounter. There have been no associated fever, chills, flank pain, or blood in the urine. Denies any urinary infections since last encounter. Review of Systems PHQ Score Initial Depression Screen Score: 0 ROS - Provider Constitutional: denies weight loss, denies hot flashes. Eyes: denies eye problems. Gastrointestinal: denies nausea, denies vomiting. Cardiovascular: denies chest pain or angina. Integumentary: no dryness Musculoskeletal: denies musculoskeletal symptoms. ENMT: denies otolaryngeal symptoms. Respiratory: no shortness of breath. Heme/Lymph: denies easy bleeding tendency, denies easy bruising tendency. Psychiatric: no confusion, no anxiety. Genitourinary: See HPI. Physical Exam Vitals & Measurements HR: 80(Peripheral) RR: 16 BP: 140/72 HT: 67 in HT: 170 cm WT: 96.1 kg WT: 211.42 lb BMI: 33.25 General Appearance: alert, no distress, well nourished, well developed male. Genitourinary: normal scrotum, normal testes, normal urethra, normal epididymis, normal vas deferens/spermatic cord. Flank Pain: none. Bladder: nonpalpable. Assessment/Plan 1. H/O prostate cancer (Z85.46: Personal history of malignant neoplasm of prostate) S/p TRUS/bx 07/22/12 - GS 7 (3+4) in 5 cores. S/p radical prostatectomy 09/23/12 and EBRT 06/10/14. UA today shows trace leukocytes. Denies UTI sxs or gross hematuria. Feel he empties completely. PSA 05/24/20 - 0.05 08/17/21 - <0.13 08/21/22 - <0.13 01/22/23 - <0.13 Discussed recent PSA results remain near zero and stable. Does not get PSA drawn by Dr. Tran PCP due to having yearly PSA checks with our office. Discussed pt to get PSA checked by PCP in the future and to follow up with him. All questions/concerns were discussed. Pt to call the office if he encounters any issues prior. Pt acknowledges understanding. 2. Erectile dysfunction after radical prostatectomy (N52.31: Erectile dysfunction following radical prostatectomy) Pt did 3P 0.2-0.3mL injections PRN in the past which worked well. States he would like to restart this. Reports he is unable to achieve an erection on his own. Will reteach pt 4P ICI at next OV. Follow-up With When Contact Information TOÑITO VIGIL, Anthony Krause, URL [facility] [address], [place] [address] [phone] Additional Instructions: teach ICI Patient Education Erectile Dysfunction I, Fang Kinney, personally scribed for Dr. Sibley on 01/24/2023 12:59:45. . Documentation recorded by the scribe, Fang Kinney, accurately reflects the services(s) I performed and decisions made by me. Authenticated by Dr. Sibley on 01/24/2023 13:02:39. Problem List/Past Medical History Ongoing Apnea, sleep BMI 37.0-37.9, adult Erectile dysfunction after radical prostatectomy H/O prostate cancer Hard of hearing Hyperlipidemia Nocturia Historical BPH (benign prostatic hyperplasia) Elevated PSA Hypertension Procedure/Surgical History Total knee replacement (12/03/2021), Arthroscopy of knee (04/04/2020), External beam radiotherapy (06/10/2014), Radical prostatectomy (09/23/2012), Transrectal biopsy of prostate using ultrasound (US) guidance (07/22/2012), CE - Cataract extraction, Fusion of lumbar spine. Medications allopurinol 300 mg Tab cyanocobalamin 1000 mcg/mL Inj cyclobenzaprine 10 mg Tab, 10 mg= 1 tab(s), Oral, TID, PRN gabapentin 100 mg Cap, 5 cap, Oral, Daily gabapentin 600 mg Tab hydrochlorothiazide-olme sartan 12.5 mg-20 mg Tab, 1 tab(s), Oral, Daily meloxicam 7.5 mg oral tablet, 7.5 mg= 1 tab(s), Oral, Daily metformin 500 mg Tab Multivitamin, Therapeutic w/ Minerals, 1 tab(s), Oral, BID ropinirole 0.5 mg Tab, 0.5 mg= 1 tab(s), Oral, Bedtime ropinirole 1 mg Tab, 1 mg= 1 tab(s), Oral, Bedtime simvastatin 20 mg Tab, 20 mg= 1 tab(s), Oral, Daily Vitamin B Complex oral tablet, 1 tab(s), Oral, BID Allergies No Known Allergies Social History Alcohol - Denies Alcohol Use, 11/13/2021 Substance Abus (more content not included)... Normal [facility] Comment on above: Result Comment: Elec tronically Signed By: Anthony SIBLEY MD\.br\Date and Time Signed: 01/24/23 13:02 EDT\.br\Electronically Co-Signed By: Fang Kinney\.br\Date and Time Co-Signed: 01/24/23 13:00 EDT CREATININEon 09-17-2022 Creatinine [Mass/Vol] 1.16 mg/dL Normal 0.70-1.30 [facility] Comment on above: Performed By: #### C RP, CREA, URIC #### [facility] [address] [address] [address] Beto Neal EGFR-AF [place] >60 Normal >=60 [facility] Comment on above: Performed By: #### C RP, CREA, URIC #### [facility] [address] [address] [address] Beto Neal EGFR-NON AF [place] >60 Normal >=60 [facility] Comment on above: Performed By: #### C RP, CREA, URIC #### [facility] [address] [address] [address] Beto Neal CRPon 09-17-2022 CRP 1.2 mg/dL Critically high <=1.0 [facility] Comment on above: Performed By: #### C RP, CREA, URIC #### [facility] [address] [address] [address] Beto Neal [facility] SED RATE 21 mm/hr Critically high <=20 [facility] Comment on above: Performed By: #### S EDR #### [facility] [address] [place] [address] Dr. Beto Neal URIC ACID SERUMon 09-17-2022 Urate [Mass/Vol] 6.1 mg/dL Normal 3.5-7.2 [facility] Comment on above: Performed By: #### C RP, CREA, URIC #### [facility] [address] [place] [address] Dr. Beto Neal CBC AUTO DIFFon 09-02-2022 BASO # 0.1 103/ul Normal 0.0-0.1 [facility] Comment on above: Performed By: #### C BC #### [facility] [address] [place] [address] Dr. Beto Neal Basophils/100 WBC (Bld) 1.2 % Normal 0.2-2.0 [facility] Comment on above: Performed By: #### C BC #### [facility] [address] [place] [address] Dr. Beto Neal EO # 0.5 103/ul Normal 0.0-0.7 [facility] Comment on above: Performed By: #### C BC #### [facility] [address] [place] [address] Dr. Beto Neal Eosinophils/100 WBC (Bld) 6.8 % Normal 0.9-7.0 [facility] Comment on above: Performed By: #### C BC #### [facility] [address] [place] [address] Dr. Beto Neal Erythrocyte distribution width (RBC) [Ratio] 13.4 % Normal 11.0-15.0 [facility] Comment on above: Performed By: #### C BC #### [facility] [address] [place] [address] Dr. Beto Neal Hematocrit (Bld) [Volume fraction] 40.3 % Critically low 42.0-54.0 [facility] Comment on above: Performed By: #### C BC #### [facility] [address] [place] [address] Dr. Beto Neal Hemoglobin (Bld) [Mass/Vol] 13.4 g/dL Critically low 14.0-18.0 [facility] Comment on above: Performed By: #### C BC #### [facility] [address] [place] [address] Dr. Beto Neal IG # 0.03 10e3/ul Normal 0.00-0.03 [facility] Comment on above: Performed By: #### C BC #### [facility] [address] [place] [address] Dr. Beto Neal IG % 0.4 % Normal 0.0-0.5 [facility] Comment on above: Performed By: #### C BC #### [facility] [address] [place] [address] Dr. Beto Neal LYMPH # 1.1 103/ul Critically low 1.2-3.8 [facility] Comment on above: Performed By: #### C BC #### [facility] [address] [place] [address] Dr. Beto Neal Lymphocytes/100 WBC (Bld) 15.8 % Critically low 20.5-60.0 [facility] Comment on above: Performed By: #### C BC #### [facility] [address] [place] [address] Dr. Beto Neal MANUAL DIFF REQ NO Normal [facility] Comment on above: Performed By: #### C BC #### [facility] [address] [place] [address] Dr. Beto Neal MCH (RBC) [Entitic mass] 31.6 pg Normal 25.9-34.0 [facility] Comment on above: Performed By: #### C BC #### [facility] [address] [place] [address] Dr. Beto Neal MCHC (RBC) [Mass/Vol] 33.3 g/dL Normal 29.9-35.2 [facility] Comment on above: Performed By: #### C BC #### [facility] [address] [place] [address] Dr. Beto Neal MCV (RBC) [Entitic vol] 95.0 fL Critically high 80.0-94 .0 [facility] Comment on above: Performed By: #### C BC #### [facility] [address] [place] [address] Dr. Beto Neal MONO # 0.5 103/ul Normal 0.3-0.8 [facility] Comment on above: Performed By: #### C BC #### [facility] [address] [address] [address] Beto Neal Monocytes/100 WBC (Bld) 6.5 % Normal 1.7-12.0 [facility] Comment on above: Performed By: #### C BC #### [facility] [address] [place] [address] Dr. Beto Neal NEUT # 4.8 103/ul Normal 1.4-6.5 [facility] Comment on above: Performed By: #### C BC #### [facility] [address] [place] [address] Dr. Beto Neal Neutrophils/100 WBC (Bld) 69.3 % Normal 43.0-75.0 [facility] Comment on above: Performed By: #### C BC #### [facility] [address] [place] [address] Dr. Beto Neal Platelet mean volume (Bld) [Entitic vol] 9.8 fL Normal 9.5-13.5 [facility] Comment on above: Performed By: #### C BC #### [facility] [address] [place] [address] Dr. Beto Neal PLT 238 103/ul Normal 150-450 [facility] Comment on above: Performed By: #### C BC #### [facility] [address] [place] [address] Dr. Beto Neal RBC 4.24 106/ul Critically low 4.70-6.10 [facility] Comment on above: Performed By: #### C BC #### [facility] [address] [place] [address] Dr. Beto Neal WBC 6.9 103/ul Normal 4.0-11.0 [facility] Comment on above: Performed By: #### C BC #### [facility] [address] [address] [address] Beto Neal GLYCOHEMOGLOBIN A1Con 2022 ADA RECOMMENDATION SEE BELOW Normal [facility] Comment on above: Result Comment: ADA RECOMMENDED LIMIT 4.0 - 6.0 ADA THERAPEUTIC TARGET < 7.0 ACTION SUGGESTED > 7.0 Performed By: #### A 1C #### [facility] [address] [place] [address] Dr. Beto Neal Glucose [Mass/Vol] 123 mg/dL Normal [facility] Comment on above: Performed By: #### A 1C #### [facility] [address] [place] [address] Dr. Beto Neal HbA1c (Bld) [Mass fraction] 5.9 % Normal 4.5-6.2 [facility] Comment on above: Performed By: #### A 1C #### [facility] [address] [place] [address] Dr. Beto Neal LIPID PROFILEon 09-02-2022 CHOL-HDL RATIO NORM SEE BELOW Normal [facility] Comment on above: Result Comment: 3.3 - 4.4 LOW RISK 4.4 - 7.1 AVERAGE RISK 7.1 - 11.0 MODERATE RISK >11.0 HIGH RISK Performed By: #### L IPID, CMP #### [facility] [address] [place] [address] Dr. Beto Neal Cholesterol [Mass/Vol] 157 mg/dL Normal <=200 [facility] Comment on above: Performed By: #### L IPID, CMP #### [facility] [address] [place] [address] Dr. Beto Neal Cholesterol in HDL [Mass/Vol] 59 mg/dL Normal 40-60 [facility] Comment on above: Performed By: #### L IPID, CMP #### [facility] [address] [place] [address] Dr. Beto Neal Cholesterol in LDL [Mass/Vol] 69.8 mg/dL Normal [facility] Comment on above: Performed By: #### L IPID, CMP #### [facility] [address] [address] [address] Beto Neal Cholesterol.total/Lina sterol in HDL [Mass ratio] 2.7 {ratio} Normal [facility] Comment on above: Performed By: #### L IPID, CMP #### [facility] [address] [address] [address] Beto Neal HDL NORMAL > or = 60 mg/dl - LO W CARDIOVASCULAR RISK <40 mg/dl - HIGH CARDIOVASCULAR RISK Normal [facility] Comment on above: Performed By: #### L IPID, CMP #### [facility] [address] [address] [address] Beto Neal LDL CALC NORMAL SEE BELOW Normal [facility] Comment on above: Result Comment: <100 mg/dl OPTIMAL 100 - 129 mg/dl NEAR OR ABOVE OPTIMAL 130 - 159 mg/dl BORDERLINE HIGH 160 - 189 mg/dl HIGH >190 mg/dl VERY HIGH Performed By: #### L IPID, CMP #### [facility] [address] [address] [address] Beto Neal Triglyceride [Mass/Vol] 141 mg/dL Normal <=[address] [facility] Comment on above: Performed By: #### L IPID, CMP #### [facility] [address] [place] [address] Dr. Beto Neal VLDL CALC 28.2 mg/dL Normal [facility] Comment on above: Performed By: #### L IPID, CMP #### [facility] [address] [address] [address] Beto Neal PROF 14(COMP METB)on 023 Albumin [Mass/Vol] 3.9 g/dL Normal 3.4-5.0 [facility] Comment on above: Performed By: #### L IPID, CMP #### [facility] [address] [place] [address] Dr. Beto Neal Albumin/Globulin [Mass ratio] 0.9 {ratio} Normal [facility] Comment on above: Performed By: #### L IPID, CMP #### [facility] [address] [address] [address] Beto Neal ALP [Catalytic activity/Vol] 76 U/L Normal 46-116 [facility] Comment on above: Performed By: #### L IPID, CMP #### [facility] [address] [address] [address] Beto Neal ALT [Catalytic activity/Vol] 28 U/L Normal 16-63 [facility] Comment on above: Performed By: #### L IPID, CMP #### [facility] [address] [address] [address] Beto Neal Anion gap [Moles/Vol] 12.7 mmol/L Normal [facility] Comment on above: Performed By: #### L IPID, CMP #### [facility] [address] [address] [address] Beto Neal AST [Catalytic activity/Vol] 14 U/L Critically low 15-37 [facility] Comment on above: Performed By: #### L IPID, CMP #### [facility] [address] [address] [address] Beto Neal Bilirubin [Mass/Vol] 0.4 mg/dL Normal 0.2-1.0 [facility] Comment on above: Performed By: #### L IPID, CMP #### [facility] [address] [address] [address] Beto Neal Calcium [Mass/Vol] 9.4 mg/dL Normal 8.5-10.1 [facility] Comment on above: Performed By: #### L IPID, CMP #### [facility] [address] [address] [address] Beto Neal Chloride [Moles/Vol] 104 mmol/L Normal 98-107 [facility] Comment on above: Performed By: #### L IPID, CMP #### [facility] [address] [address] [address] Beto Neal CO2 [Moles/Vol] 29.4 mmol/L Normal 21.0-32.0 [facility] Comment on above: Performed By: #### L IPID, CMP #### [facility] [address] [address] [address] Beto Neal Creatinine [Mass/Vol] 1.16 mg/dL Normal 0.70-1.30 [facility] Comment on above: Performed By: #### L IPID, CMP #### [facility] [address] [address] [address] Beto Neal EGFR-AF [place] >60 Normal >=60 [facility] Comment on above: Performed By: #### L IPID, CMP #### [facility] [address] [address] [address] Beto Neal EGFR-NON AF [place] >60 Normal >=60 [facility] Comment on above: Performed By: #### L IPID, CMP #### [facility] [address] [address] [address] Beto Neal Globulin (S) [Mass/Vol] 4.2 g/dL Normal [facility] Comment on above: Performed By: #### L IPID, CMP #### [facility] [address] [address] [address] Beto Neal Glucose [Mass/Vol] 114 mg/dL Critically high 74-106 [facility] Comment on above: Performed By: #### L IPID, CMP #### [facility] [address] [address] [address] Beto Neal Potassium [Moles/Vol] 4.1 mmol/L Normal 3.5-5.1 [facility] Comment on above: Performed By: #### L IPID, CMP #### [facility] [address] [address] [address] Beto Neal Protein [Mass/Vol] 8.1 g/dL Normal 6.4-8.2 [facility] Comment on above: Performed By: #### L IPID, CMP #### [facility] [address] [address] [address] Beto Neal Sodium [Moles/Vol] 142 mmol/L Normal 136-145 [facility] Comment on above: Performed By: #### L IPID, CMP #### [facility] [address] [place], [place] [address] Dr. Beto Neal Urea nitrogen [Mass/Vol] 19.0 mg/dL Critically high 7.0-18.0 [facility] Comment on above: Performed By: #### L IPID, CMP #### [facility] [address] [place], [place] [address] Dr. Beto Neal Urea nitrogen/Creatinine [Mass ratio] 16.4 mg/mg Normal [facility] Comment on above: Performed By: #### L IPID, CMP #### [facility] [address] [address] [address] Beto Neal Lab Reportson 08-23-2022 Lab Reports [id number]: [id number] Normal [facility] Alanine aminotransferase [En zymatic activity/volume] in Serum or PlasmaOrdered By: Christofer Devi on 07-04-2022 ALT [Catalytic activity/Vol] 14 U/L 7-52 [facility] Albumin [Mass/volume] in Ser um or Plasma by Bromocresol green (BCG) dye binding methoOrdered By: Christofer Devi on 07-04-2022 Albumin BCG dye [Mass/Vol] 4.5 g/dL 3.5-5.7 [facility] Alkaline phosphatase [Enzyma tic activity/volume] in Serum or PlasmaOrdered By: Christofer Devi on 07-04-2022 ALP [Catalytic activity/Vol] 63 U/L 34-104 [facility] Aspartate aminotransferase [ Enzymatic activity/volume] in Serum or PlasmaOrdered By: Christofer Devi on 07-04-2022 AST [Catalytic activity/Vol] 15 U/L 13-39 [facility] Basophils Auto (Bld) [#/Vol] Ordered By: Christofer Devi on 07-04-2022 Basophils (Bld) [#/Vol] 0.0 10*3/uL 0.0-0.2 [facility] Basophils/100 WBC Auto (Bld) Ordered By: Christofer Devi on 07-04-2022 Basophils/100 WBC (Bld) 0.6 % . [facility] Bilirubin.direct [Mass/volum e] in Serum or PlasmaOrdered By: Christofer Devi on 07-04-2022 Bilirubin.direct [Mass/Vol] 0.10 mg/dL 0.03-0.18 [facility] Bilirubin.total [Mass/volume ] in Serum or PlasmaOrdered By: Christofer Devi on 07-04-2022 Bilirubin [Mass/Vol] 0.6 mg/dL 0.3-1.0 [facility] C reactive protein [Mass/vol ume] in Serum or PlasmaOrdered By: Christofer Devi on 07-04-2022 CRP [Mass/Vol] 1.1 mg/dL 0.0-0.4 [facility] Creatinine [Mass/volume] in Serum or PlasmaOrdered By: Christofer Devi on 07-04-2022 Creatinine [Mass/Vol] 1.09 mg/dL 0.70-1.30 [facility] Eosinophils Auto (Bld) [#/Vo l]Ordered By: Christofer Devi on 07-04-2022 Eosinophils (Bld) [#/Vol] 0.2 10*3/uL 0.0-0.45 [facility] Eosinophils/100 WBC Auto (Bl d)Ordered By: Christofer Devi on 07-04-2022 Eosinophils/100 WBC (Bld) 4.1 % . [facility] Erythrocyte distribution wid th Auto (RBC) [Ratio]Ordered By: Christofer Devi on 07-04-2022 Erythrocyte distribution width (RBC) [Ratio] 15.2 % 12.0-14.8 [facility] Erythrocyte sedimentation ra te by Photometric methodOrdered By: Christofer Devi on 07-04-2022 ESR Photometric method (Bld) [Velocity] 26 mm/hr 0-19 [facility] Globulin Calc (S) [Mass/Vol] Ordered By: Christofer Devi on 07-04-2022 Globulin (S) [Mass/Vol] 2.8 g/dL [facility] Hematocrit Auto (Bld) [Volum e fraction]Ordered By: Christofer Devi on 07-04-2022 Hematocrit (Bld) [Volume fraction] 36.7 % 38.8-50.0 [facility] Hemoglobin [Mass/volume] in BloodOrdered By: Christofer Devi on 07-04-2022 Hemoglobin (Bld) [Mass/Vol] 12.7 g/dL 13.0-17.0 [facility] - Chemistry and C hemistry - challengeOrdered By: Christofer Devi on 07-04-2022 GFR/1.73 sq M.predicted MDRD (S/P/Bld) [Vol rate/Area] mL/min/{1.73_m2} [facility] Leukocytes [#/volume] correc monica for nucleated erythrocytes in Blood by Automated counOrdered By: Christofer Devi on 07-04-2022 WBC corrected for nucl RBC Auto (Bld) [#/Vol] 5.7 10*3/uL 4.1-10.5 [facility] Lymphocytes Auto (Bld) [#/Vo l]Ordered By: Christofer Devi on 07-04-2022 Lymphocytes (Bld) [#/Vol] 0.9 10*3/uL 1.00-4.8 [facility] Lymphocytes/100 WBC Auto (Bl d)Ordered By: Christofer Devi on 07-04-2022 Lymphocytes/100 WBC (Bld) 15.9 % . [facility] MCH Auto (RBC) [Entitic mass ]Ordered By: Christofer Devi on 07-04-2022 MCH (RBC) [Entitic mass] 30.8 pg 27.5-35.2 [facility] MCHC Auto (RBC) [Mass/Vol]Or dered By: Christofer Devi on 07-04-2022 MCHC (RBC) [Mass/Vol] 34.5 g/dL 32.5-35.6 [facility] MCV Auto (RBC) [Entitic vol] Ordered By: Christofer Devi on 07-04-2022 MCV (RBC) [Entitic vol] 89.4 fL 83.5-101 [facility] Monocytes Auto (Bld) [#/Vol] Ordered By: Christofer Devi on 07-04-2022 Monocytes (Bld) [#/Vol] 0.5 10*3/uL 0.0-0.8 [facility] Monocytes/100 WBC Auto (Bld) Ordered By: Christofer Devi on 07-04-2022 Monocytes/100 WBC (Bld) 8.5 % . [facility] Neutrophils Auto (Bld) [#/Vo l]Ordered By: Christofer Devi on 07-04-2022 Neutrophils (Bld) [#/Vol] 4.1 10*3/uL 1.8-7.7 [facility] Neutrophils/100 WBC Auto (Bl d)Ordered By: Christofer Devi on 07-04-2022 Neutrophils/100 WBC (Bld) 70.9 % . [facility] No Panel InformationOrdered By: Christofer Devi on 07-04-2022 Pharmacy Creatinine Clearance (Chem N/A [facility] Nucleated erythrocytes [Pres ence] in Blood by Automated countOrdered By: Christofer Devi on 07-04-2022 Nucleated RBC Auto Ql (Bld) 0.1 /100{WBC} 0-0.5 [facility] Platelet mean volume Auto (B ld) [Entitic vol]Ordered By: Christofer Devi on 07-04-2022 Platelet mean volume (Bld) [Entitic vol] 8.2 fL 6.6-10.1 [facility] Platelets Auto (Bld) [#/Vol] Ordered By: Christofer Devi on 07-04-2022 Platelets (Bld) [#/Vol] 234 10*3/uL 150-450 [facility] Protein [Mass/volume] in Ser um or PlasmaOrdered By: Christofer Devi on 07-04-2022 Protein [Mass/Vol] 7.3 g/dL 6.4-8.9 [facility] RBC Auto (Bld) [#/Vol]Ordere d By: Christofer Devi on 07-04-2022 RBC (Bld) [#/Vol] 4.10 10*6/uL 3.90-5.60 [place] [facility] Serum or plasma albumin/glob ulin mass ratioOrdered By: Christofer Devi on 07-04-2022 Albumin/Globulin [Mass ratio] 1.6 {ratio} [facility] Serum or plasma non-glucuron idated bilirubin measurement (mass/volume)Ordered By: Christofer Devi on 07-04-2022 Bilirubin.indirect [Mass/Vol] 0.5 mg/dL [facility] Urate [Mass/volume] in Serum or PlasmaOrdered By: Christofer Devi on 07-04-2022 Urate [Mass/Vol] 6.7 mg/dL 2.4-7.6 [facility] WBC Auto (Bld) [#/Vol]Ordere d By: Christofer Devi on 07-04-2022 WBC (Bld) [#/Vol] 5.7 10*3/uL 4.1-10.5 [facility] C reactive protein [Mass/vol ume] in Serum or PlasmaOrdered By: Christofer Devi on 06-05-2022 CRP [Mass/Vol] 1.6 mg/dL 0.0-1.0 [facility] Erythrocyte sedimentation ra te by Photometric methodOrdered By: Christofer Devi on 06-05-2022 ESR Photometric method (Bld) [Velocity] 30 mm/hr 0-19 [facility] Serum or plasma uric acid me asurement (mass/volume)Ordered By: Christofer Devi on 06-05-2022 Urate [Mass/Vol] 9.3 mg/dL 2.6-7.2 [facility] Albumin [Mass/volume] in Ser um or PlasmaOrdered By: Sherrie Kessler on 05-21-2022 Albumin [Mass/Vol] 4.2 g/dL 2.9-4.4 [facility] C reactive protein [Mass/vol ume] in Serum or PlasmaOrdered By: Kaveh Tran on 05-21-2022 CRP [Mass/Vol] 8 mg/L 0-10 [facility] Comment on above: Performed at: [address] [id number] Director: Zaki Watson PhD, Phone: [phone] Erythrocyte sedimentation ra te by Photometric methodOrdered By: Sherrie Kessler on 05-21-2022 ESR Photometric method (Bld) [Velocity] 23 mm/hr 0-19 [facility] Folate [Mass/volume] in Seru m or PlasmaOrdered By: Sherrie Kessler on 05-21-2022 Folate [Mass/Vol] ng/mL >5.9 [facility] Comment on above: Folate reference ran ge: >5.9 ng/mlThe WHO technical consultation on folate and vitamin [id number] has determined that folate concentrations lessthan 4 ng/ml are considered deficient. Laboratory - Chemistry and C hemistry - challengeOrdered By: Sherrie Kessler on 05-21-2022 Cobalamin (Vitamin B12) [Mass/Vol] 204 pg/mL 180-914 [facility] Mitotic spindle apparatus Ab [Titer] in Serum or Plasma by ImmunofluorescenceOrdered By: Sherrie Kessler on 05-21-2022 Mitotic spindle apparatus Ab IF [Titer] 1:320 . [facility] Comment on above: ICAP nomenclature: [id number] No Panel InformationOrdered By: Sherrie Kessler on 05-21-2022 Anti-Nuclear Antibody Comment 2 See comment . [facility] Comment on above: For more information about Hep-2 cell patterns useANApatterns.org, the official website for the InternationalConsensus on Antinuclear Antibody (SHORTY) Patterns (ICAP). -----A positive SHORTY result may occur in healthy individuals (lowtiter) or be associated with a variety of diseases. Seeinterpretation chart which is not all inclusive:Pattern Antigen Detected Suggested Disease Association Homogeneous DNA(ds,ss), SLE - High titers Nucleosomes, Histones Drug-induced SLE Speckled Sm, ACCOUNT DEVELOPMENT REPRESENTATIVE, SCL-70, SLE,MCTD,PSS (diffuse form), SS-A/SS-B Sjogrens Nucleolar SCL-70, PM-1/SCL High titers Scleroderma, PM/DM Centromere Centromere PSS (limited form) w/Crest syndrome variable Nuclear Dot [id number] Primary Biliary Cirrhosis Nuclear GP210, Primary Biliary CirrhosisMembrane alfonso A,B,C Performed at: [facility] [id number] Director: Zaki Watson PhD, Phone: [phone] Protein Electrophoresis Interpret See comment . [facility] Comment on above: The SPE pattern appe ars unremarkable. Evidence ofmonoclonal protein is not apparent.Performed at: [facility] [address] [id number] Director: Zaki Watson PhD, Phone: [phone] Protein Electrophoresis M-Dudley Not observed g/dL Not Observed [facility] Protein Electrophoresis Note See comment . [facility] Comment on above: Protein electrophore sis scan will follow via computer,mail, or traffic operator delivery. Protein [Mass/volume] in Ser um or PlasmaOrdered By: Sherrie Kessler on 05-21-2022 Protein [Mass/Vol] 7.2 g/dL 6.0-8.5 [facility] Serum globulin measurement ( mass/volume)Ordered By: Sherrie Kessler on 05-21-2022 Globulin (S) [Mass/Vol] 3.0 g/dL 2.2-3.9 [facility] Serum nuclear antibody titer Ordered By: Sherrie Kessler on 05-21-2022 Nuclear Ab (S) [Titer] Positive . [facility] Comment on above: Negative <1:80 Borde rline 1:80 Positive >1:80 Serum or plasma albumin/glob ulin mass ratioOrdered By: Sherrie Kessler on 05-21-2022 Albumin/Globulin [Mass ratio] 1.4 {ratio} 0.7-1.7 [facility] Serum or plasma alpha 1 glob ulin measurement by electrophoresis (mass/volume)Ordered By: Sherrie Kessler on 05-21-2022 Alpha 1 globulin Elph [Mass/Vol] 0.2 g/dL 0.0-0.4 [facility] Serum or plasma alpha 2 glob ulin measurement by electrophoresis (mass/volume)Ordered By: Sherrie Kessler on 05-21-2022 Alpha 2 globulin Elph [Mass/Vol] 0.6 g/dL 0.4-1.0 [facility] Serum or plasma beta globuli n measurement by electrophoresis (mass/volume)Ordered By: Sherrie Kessler on 05-21-2022 Beta globulin Elph [Mass/Vol] 0.9 g/dL 0.7-1.3 [facility] Serum or plasma gamma globul in measurement by electrophoresis (mass/volume)Ordered By: Sherrie Kessler on 05-21-2022 Gamma globulin Elph [Mass/Vol] 1.2 g/dL 0.4-1.8 [facility] Serum or plasma methylmalona te measurement (moles/volume)Ordered By: Sherrie Kessler on 05-21-2022 Methylmalonate [Moles/Vol] 230 nmol/L 0-378 [facility] Comment on above: This test was develo ped and its performance characteristicsdetermined by [facility]. It has not been cleared orapproved by the Food and Drug Administration.Performed at: [address] [id number] Director: Kolby Pinto MD, Phone: [phone] Albumin [Mass/volume] in Ser um or PlasmaOrdered By: Kaveh Tran on 05-06-2022 Albumin [Mass/Vol] 4.1 g/dL 3.2-5.5 [facility] Basophils Auto (Bld) [#/Vol] Ordered By: Kaveh Tran on 05-06-2022 Basophils (Bld) [#/Vol] 0.0 10*3/uL 0.0-0.2 [facility] Basophils/100 WBC Auto (Bld) Ordered By: Kaveh Tran on 05-06-2022 Basophils/100 WBC (Bld) 0.7 % . [facility] Cholesterol [Mass/volume] in Serum or PlasmaOrdered By: Kaveh Tran on 05-06-2022 Cholesterol [Mass/Vol] 202 mg/dL 140-200 [facility] Comment on above: Chol less than 200 m g/dl low riskChol 201-239 mg/dl borderline riskChol 240 mg/dl and greater high risk Cholesterol in LDL Calc [Mas s/Vol]Ordered By: Kaveh Tran on 05-06-2022 Cholesterol in LDL [Mass/Vol] 124 mg/dL 0-100 [facility] Comment on above: LDL ATP III CLASSIFI CATIONLDL less than 100 mg/dL OptimalLDL 100-129 mg/dL Near or above optimalLDL 130-159 mg/dL Borderline highLDL 160-189 mg/dL HighLDL greater than 189 mg/dL Very high Cholesterol in VLDL Calc [Ma ss/Vol]Ordered By: Kaveh Tran on 05-06-2022 Cholesterol in VLDL [Mass/Vol] 22 mg/dL [facility] Creatinine and Glomerular fi ltration rate.predicted panel (S/P/Bld)Ordered By: Kaveh Tran on 05-06-2022 Creatinine [Mass/Vol] 1.08 mg/dL 0.64-1.27 [facility] Eosinophils Auto (Bld) [#/Vo l]Ordered By: Kaveh Tran on 05-06-2022 Eosinophils (Bld) [#/Vol] 0.4 10*3/uL 0.0-0.45 [facility] Eosinophils/100 WBC Auto (Bl d)Ordered By: Kaveh Tran on 05-06-2022 Eosinophils/100 WBC (Bld) 6.5 % . [facility] Erythrocyte distribution wid th Auto (RBC) [Ratio]Ordered By: Kaveh Tran on 05-06-2022 Erythrocyte distribution width (RBC) [Ratio] 16.7 % 12.0-14.8 [facility] Estimated glomerular filtrat ion rate (GFR) non- AmericanOrdered By: Kaveh Tran on 05-06-2022 GFR/1.73 sq M.predicted among non-blacks MDRD (S/P/Bld) [Vol rate/Area] > 60 mL/Min [facility] Globulin Calc (S) [Mass/Vol] Ordered By: Kaveh Tran on 05-06-2022 Globulin (S) [Mass/Vol] 2.8 g/dL [facility] Glucose mean value [Mass/vol ume] in Blood Estimated from glycated hemoglobinOrdered By: Kaveh Tran on 05-06-2022 Average glucose Estimated from glycated hemoglobin (Bld) [Mass/Vol] 137 mg/dL [facility] Hematocrit Auto (Bld) [Volum e fraction]Ordered By: Kaveh Tran on 05-06-2022 Hematocrit (Bld) [Volume fraction] 40.5 % 38.8-50.0 [facility] Hemoglobin A1c percentageOrd ered By: Kaveh Tran on 05-06-2022 HbA1c (Bld) [Mass fraction] 6.4 % 4.3-5.6 [facility] Comment on above: Increased risk for d iabetes: 5.7 - 6.4diabetes: >6.4glycemic control for adults with diabetes: <7.0 Hemoglobin [Mass/volume] in BloodOrdered By: Kaveh Tran on 05-06-2022 Hemoglobin (Bld) [Mass/Vol] 13.6 g/dL 13.0-17.0 [facility] Leukocytes [#/volume] correc monica for nucleated erythrocytes in Blood by Automated counOrdered By: Kaveh Tran on 05-06-2022 WBC corrected for nucl RBC Auto (Bld) [#/Vol] 6.2 10*3/uL 4.1-10.5 [facility] Lymphocytes Auto (Bld) [#/Vo l]Ordered By: Kaveh Tran on 05-06-2022 Lymphocytes (Bld) [#/Vol] 1.3 10*3/uL 1.00-4.8 [facility] Lymphocytes/100 WBC Auto (Bl d)Ordered By: Kaveh Tran on 05-06-2022 Lymphocytes/100 WBC (Bld) 20.5 % . [facility] MCH Auto (RBC) [Entitic mass ]Ordered By: Kaveh Tran on 05-06-2022 MCH (RBC) [Entitic mass] 29.0 pg 27.5-35.2 [facility] MCHC Auto (RBC) [Mass/Vol]Or dered By: Kaveh Tran on 05-06-2022 MCHC (RBC) [Mass/Vol] 33.5 g/dL 32.5-35.[address] [facility] MCV Auto (RBC) [Entitic vol] Ordered By: Kaveh Tran on 05-06-2022 MCV (RBC) [Entitic vol] 86.7 fL 83.5-101 [facility] Monocytes Auto (Bld) [#/Vol] Ordered By: Kaveh Tran on 05-06-2022 Monocytes (Bld) [#/Vol] 0.5 10*3/uL 0.0-0.8 [facility] Monocytes/100 WBC Auto (Bld) Ordered By: Kaveh Tran on 05-06-2022 Monocytes/100 WBC (Bld) 8.4 % . [facility] Neutrophils Auto (Bld) [#/Vo l]Ordered By: Kaveh Tran on 05-06-2022 Neutrophils (Bld) [#/Vol] 3.9 10*3/uL 1.8-7.7 [facility] Neutrophils/100 WBC Auto (Bl d)Ordered By: Kaveh Tran on 05-06-2022 Neutrophils/100 WBC (Bld) 63.9 % . [facility] No Panel InformationOrdered By: Kaveh Tran on 05-06-2022 Estimated GFR () > 60 mL/Min [facility] Comment on above: GFR estimated refere nce range: According to KDOQI guidelines, <60 ml/min/1.73m2 is sufficient to diagnose a patient with chronic kidney disease. Pharmacy Creatinine Clearance (Chem N/A [facility] Nucleated erythrocytes [Pres ence] in Blood by Automated countOrdered By: Kaveh Tran on 05-06-2022 Nucleated RBC Auto Ql (Bld) 0.1 /100{WBC} 0-0.5 [facility] Platelet mean volume Auto (B ld) [Entitic vol]Ordered By: Kaveh Tran on 05-06-2022 Platelet mean volume (Bld) [Entitic vol] 7.8 fL 6.6-10.1 [facility] Platelets Auto (Bld) [#/Vol] Ordered By: Kaveh Tran on 05-06-2022 Platelets (Bld) [#/Vol] 228 10*3/uL 150-450 [facility] Protein [Mass/volume] in Ser um or PlasmaOrdered By: Kaveh Tran on 05-06-2022 Protein [Mass/Vol] 6.9 g/dL 6.1-7.9 [facility] RBC Auto (Bld) [#/Vol]Ordere d By: Kaveh Tran on 05-06-2022 RBC (Bld) [#/Vol] 4.67 10*6/uL 3.90-5.60 [facility] Serum or plasma alanine mckeon otransferase measurement without P-5'-P (enzymatic activiOrdered By: Kaveh Tran on 05-06-2022 ALT No additional P-5'-P [Catalytic activity/Vol] 17 U/L 10-60 [facility] Serum or plasma albumin/glob ulin mass ratioOrdered By: Kaveh Tran on 05-06-2022 Albumin/Globulin [Mass ratio] 1.5 {ratio} [facility] Serum or plasma alkaline horace sphatase measurement (enzymatic activity/volume)Ordered By: Kaveh Tran on 05-06-2022 ALP [Catalytic activity/Vol] 66 U/L 32-92 [facility] Serum or plasma anion gap de terminationOrdered By: Kaveh Tran on 05-06-2022 Anion gap [Moles/Vol] 11.3 mmol/L 6.0-15.0 [facility] Serum or plasma aspartate am inotransferase measurement (enzymatic activity/volume)Ordered By: Kaveh Tran on 05-06-2022 AST [Catalytic activity/Vol] 18 U/L 10-42 [facility] Serum or plasma calcium abelardo urement (mass/volume)Ordered By: Kaveh Tran on 05-06-2022 Calcium [Mass/Vol] 9.6 mg/dL 8.2-10.2 [facility] Serum or plasma chloride dori surement (moles/volume)Ordered By: Kaveh Tran on 05-06-2022 Chloride [Moles/Vol] 104 mmol/L 95-114 [facility] Serum or plasma glucose abelardo urement (mass/volume)Ordered By: Kaveh Tran on 05-06-2022 Glucose [Mass/Vol] 109 mg/dL 70-100 [facility] Comment on above: ADA recommended refe rence rangeRandom Glucose Reference Range is dependent on time and content of last meal. Glucose of more than 200 mg/dL in a nonstressed, ambulatory subject supports the diagnosis of Diabetes Mellitus. Serum or plasma high density lipoprotein (HDL) cholesterol measurementOrdered By: Kaveh Tran on 05-06-2022 Cholesterol in HDL [Mass/Vol] 56 mg/dL 29-71 [facility] Comment on above: HDL CHOL ATP-III CLA SSIFICATION Cardiovascular RiskHDL > or equal to 60 mg/dL LOWHDL < 40 mg/dL HIGH Serum or plasma potassium me asurement (moles/volume)Ordered By: Kaveh Tran on 05-06-2022 Potassium [Moles/Vol] 4.6 mmol/L 3.5-5.1 [facility] Serum or plasma sodium measu rement (moles/volume)Ordered By: Kaveh Tran on 05-06-2022 Sodium [Moles/Vol] 140 mmol/L 136-146 [facility] Serum or plasma total biliru bin measurement (mass/volume)Ordered By: Kaveh Tran on 05-06-2022 Bilirubin [Mass/Vol] 0.8 mg/dL 0.3-1.2 [facility] Serum or plasma total carbon dioxide measurement (moles/volume)Ordered By: Kaveh Tran on 05-06-2022 CO2 [Moles/Vol] 29.3 mmol/L 22.0-30.0 [facility] Serum or plasma total choles terol/high density lipoprotein (HDL) cholesterol mass ratOrdered By: Kaveh Tran on 05-06-2022 Cholesterol.total/Lina sterol in HDL [Mass ratio] 3.6 {ratio} <5.0 [facility] Serum or plasma urea nitroge n measurement (mass/volume)Ordered By: Kaveh Tran on 05-06-2022 Urea nitrogen [Mass/Vol] 13 mg/dL 9-23 [facility] TSH DL <= 0.005 mIU/L QnOrde red By: Kaveh Tran on 05-06-2022 TSH Qn 2.78 m[IU]/L 0.45-5.33 [facility] Triglyceride [Mass/volume] i n Serum or PlasmaOrdered By: Kaveh Tran on 05-06-2022 Triglyceride [Mass/Vol] 112 mg/dL 35-149 [facility] Comment on above: TRIG ATP III CLASSIF ICATIONTRIG less than 150 mg/dL NormalTRIG 150-199 mg/dL Borderline highTRIG 200-500 mg/dL High TRIG greater than 500 mg/dL Very highStandard traceable to the Center for Disease Conrtrol and Prevention (CDC) test method. WBC Auto (Bld) [#/Vol]Ordere d By: Kaveh Tran on 05-06-2022 WBC (Bld) [#/Vol] 6.2 10*3/uL 4.1-10.5 [facility] CHEMISTRYOrdered By: SYSTEM SYSTEM on 12-25-2021 Albumin [Mass/Vol] 3.4 g/dL Normal 3.3 - 5.0 gm/dL [facility] Albumin/Globulin [Mass ratio] 1.0 {ratio} Low 1.1 - 2.2 [facility] ALP [Catalytic activity/Vol] 55 [iU]/d Normal 21 - 98 Int._Unit/ L [facility] ALT No additional P-5'-P [Catalytic activity/Vol] 23 [iU]/d Normal 6 - 46 Int._Unit/ L [facility] Anion gap [Moles/Vol] 12 mmol/L Normal 6 - 16 mEq/L [facility] AST [Catalytic activity/Vol] 20 [iU]/d Normal 5 - 43 Int._Unit/ L [facility] Bilirubin [Mass/Vol] 0.4 mg/dL Normal 0.0 - 1 .1 mg/dL [facility] Bilirubin.direct [Mass/Vol] 0.1 mg/dL Normal 0.1 - 0.4 mg/dL [facility] Bilirubin.indirect [Mass or moles/Vol] 0.3 mg/dL Normal 0.1 - 0.9 mg/dL [facility] Calcium [Mass/Vol] 8.9 mg/dL Normal 8.9 - 11. 1 mg/dL [facility] Chloride [Moles/Vol] 102 mmol/L Normal 101 - 1 11 mmol/L [facility] CO2 [Moles/Vol] 24 mmol/L Normal 21 - 31 mmol/L [facility] Creatinine [Mass/Vol] 1.1 mg/dL Normal 0.5 - 1.3 mg/dL [facility] GFR/1.73 sq M.predicted among blacks MDRD (S/P/Bld) [Vol rate/Area] mL/min/1.73 m2 Normal >=59mL/min /1.73 m2 [facility] Chem S GFR/1.73 sq M.predicted among non-blacks MDRD (S/P/Bld) [Vol rate/Area] mL/min/1.73 m2 Normal >=59mL/min /1.73 m2 [facility] S Globulin (S) [Mass/Vol] 3.5 g/dL Normal 1.4 - 4.0 gm/dL [facility] Glucose [Mass/Vol] 113 mg/dL Normal 55 - 199 mg/dL [facility] Lactate [Mass/Vol] 1.2 mmol/L Normal 0.5 - 2.2 mmol/L [facility] Potassium [Moles/Vol] 3.8 mmol/L Normal 3.5 - 5.3 mmol/L [facility] Protein [Mass/Vol] 6.9 g/dL Normal 6.0 - 7.8 gm/dL [facility] Sodium [Moles/Vol] 134 mmol/L Low 135 - 145 mmol/L [facility] Urea nitrogen [Mass/Vol] 17 mg/dL Normal 5 - 21 mg/dL [facility] Urea nitrogen/Creatinine [Mass ratio] 16 mg/mg Normal 10 - 20 [facility] HEMATOLOGYOrdered By: SYSTEM SYSTEM on 12-25-2021 Basophils/100 WBC (Bld) 0.6 % Normal 0.0 - 2.0 % [facility] Basophils/Leukocytes Auto (Bld) [Pure # fraction] 0.0 E9/L Normal 0.0 - 0.2 E9/L [facility] Eosinophils/100 WBC (Bld) 5.4 % Normal 0.0 - 8.0 % [facility] Eosinophils/Leukocytes Auto (Bld) [Pure # fraction] 0.3 E9/L Normal 0.0 - 0.5 E9/L [facility] Lymphocytes/100 WBC (Bld) 14.3 % Normal 14.0 - 50.0 % [facility] Lymphocytes/Leukocytes Auto (Bld) [Pure # fraction] 0.8 E9/L Low 1.0 - 4.0 E9/L [facility] Monocytes/100 WBC (Bld) 11.4 % Normal 4.0 - 14.0 % [facility] Monocytes/Leukocytes Auto (Bld) [Pure # fraction] 0.6 E9/L Normal 0.2 - 1.0 E9/L [facility] Neutrophils/100 WBC (Bld) 68.3 % Normal 36.0 - 75.0 % [facility] Neutrophils/Leukocytes Auto (Bld) [Pure # fraction] 3.6 E9/L Normal 2.0 - 7.5 E9/L [facility] HEMATOLOGYOrdered By: Karl Cardoza on 12-25-2021 Erythrocyte distribution width (RBC) [Ratio] 13.8 % Normal 10.9 - 14.2 % [facility] Hematocrit (Bld) [Volume fraction] 29.7 % Low 37.7 - 49.0 % [facility] Hemoglobin (Bld) [Mass/Vol] 9.9 g/dL Low 13.5 - 17.5 gm/dL [facility] MCH (RBC) [Entitic mass] 29.7 pg Normal 27.0 - 34.0 pg [facility] MCHC (RBC) [Mass/Vol] 33.3 g/dL Normal 31.4 - 36.0 gm/dL [facility] MCV (RBC) [Entitic vol] 89.1 fL Normal 80.0 - 100.0 fL [facility] Platelet mean volume (Bld) [Entitic vol] 8.8 fL Normal 6.4 - 10.8 fL [facility] Platelets (Bld) [#/Vol] 207.0 E9/L Normal 150. 0 - 500.0 E9/L [facility] RBC (Bld) [#/Vol] 3.3 E12/L Low 4.3 - 5.9 E12/L [facility] WBC corrected for nucl RBC Auto (Bld) [#/Vol] 5.3 E9/L Normal 4.0 - 11.0 E9/L [facility] URINALYSISOrdered By: Leila orellana on 12-25-2021 Bacteria LM Ql (Urine sed) Trace /HPF Normal Trace/HPF [facility] UA Auto SS Bilirubin Ql (U) Negative (12/25/21 2:33 PM) Normal Negative [facility] UA Auto SS Clarity (U) Clear (12/25/21 2:33 PM) Normal Clear [facility] UA Auto SS Color (U) Yellow (12/25/21 2:33 PM) Normal Yellow [facility] UA Auto SS Epithelial cells.squamous LM.HPF (Urine sed) [#/Area] 0-2 /HPF Normal 0-2/HPF [facility] UA Aut o SS Glucose Test strip (U) [Mass/Vol] Negative (12/25/21 2:33 PM) Normal Negative [facility] UA Auto SS Hemoglobin Ql (U) Negative (12/25/21 2:33 PM) Normal Negative [facility] UA Auto SS Ketones (U) [Mass/Vol] Negative (12/25/21 2:33 PM) Normal Negative [facility] UA Auto SS Muniz.plasma/Muniz. RBC (Bld) [Mass ratio] 0-3 /HPF Normal 0-3/HPF [facility] UA A uto SS Nitrite Ql (U) Negative (12/25/21 2:33 PM) Normal Negative [facility] UA Auto SS pH (U) 5.5 *NA* (12/25/21 2:33 PM) Invalid Interpretation Code 5.0 - 9.0 [facility] UA Auto SS Protein (U) [Mass/Vol] Negative (12/25/21 2:33 PM) Normal Negative [facility] UA Auto SS Specific gravity (U) [Rel density] 1.025 *NA* (12/25/21 2:33 PM) Invalid Interpretation Code 1.005 - 1.030 [facility] UA Auto SS UA Spec Desc Clean Catch (12/25/21 2:33 PM) Normal [facility] UA Auto SS Urobilinogen Qn (U) 1.6100998 {Tahmina'U}/dL Normal 0.0 - 1.0 EU/dL [facility] UA Auto SS WBC Auto Ql (U) Negative (12/25/21 2:33 PM) Normal Negative [facility] UA Auto SS WBC LM.HPF (Urine sed) [#/Area] 0-5 /HPF Normal 0-5/HPF [facility] UA Auto SS BLOOD BANKOrdered By: Lilliam Tomlinson on 12-03-2021 ABO/Rh Interp Positive Invalid Interpretation Code [facility] BB Subsection ABSC Gel Interp Negative (12/03/21 10:53 AM) Normal [facility] BB Subsection Office Visit (Cardiology)on 11-21-2021 Follow-up visit Diagnoses/Problems Assessed Abnormal EKG (794.31) (R94.31) Pre-operative examination (V72.84) (Z01.818) Former smoker (V15.82) (Z87.891) quit as a teen Class 2 obesity with body mass index (BMI) of 36.0 to 36.9 in adult (278.00,V85.36) (E66.9,Z68.36) Hypertension (401.9) (I10) Orders Class 2 obesity with body mass index (BMI) of 36.0 to 36.9 in adult Healthy Weight Tips; Status:Complete - Retrospective Authorization; Done: [id number] Some eating tips that can help you lose weight.; Status:Complete - Retrospective Authorization; Done: [id number] Pre-operative examination IO EKG Electrocardiogram- 12 Lead; Status:Complete; Done: [id number] SocHx: Former smoker Tobacco Use Screening; Status:Complete; Done: [id number] Patient Instructions Please bring all medicines, vitamins, and herbal supplements with you when you come to the office. Prescriptions will not be filled unless you are compliant with your follow up appointments or have a follow up appointment scheduled as per instruction of your physician. Refills should be requested at the time of your visit. Patient is clear for surgery from a cardiac standpoint Follow up as needed only I, Aishwarya Moran LPN, am scribing for and in the presence of, Dr. Emanuel Aparicio DO Chief Complaint ISIAH PAEZ is being seen for a consultation for pre-operative clearance. 71-year-old gentleman seen in cardiology consultation at the request of Dr. Dacosta in general anesthesia prior to left knee replacement for preoperative clearance. He is doing well he has no cardiovascular complaints. Reportedly he had abnormal ECG at [facility] which has been reviewed he has had variable minor ECG variances over the past 7 years on 4 different ECGs reviewed from [facility] as well as ourselves. Today's ECG reveals sinus rhythm is completely normal Patient has underlying history of hypertension and obesity and from what his describes probably glucose intolerance. Blood work is also reviewed revealing hemoglobin A1c 6.2% average glucose of 117 normal thyroid profile, LDL is 100, HDL 51 cholesterol 185 glucose of 119 potassium 4.5, creatinine 1.2 AST and ALT of 15 and 22 respectively normal hemogram Patient had previous treadmill stress testing in 2019 that was normal. He has been treated for hypertension. His overall cardiovascular risk is exceedingly low he is cleared for his intended procedure he can follow-up as needed Surgical History Problems History of Cataract surgery History of Complete colonoscopy History of Knee surgery History of Prostate surgery History of Spinal surgery History of Tonsillectomy Current Meds Medication NameInstruction Citalopram Hydrobromide 20 MG Oral TabletTAKE 1 TABLET DAILY DIRECTED. Gabapentin 100 MG Oral CapsuleTAKE 1 CAPSULE 4 TIMES DAILY Olmesartan Medoxomil-HCTZ 20-12.5 MG Oral TabletTAKE 1 TABLET DAILY. rOPINIRole HCl - 1 MG Oral TabletTAKE 1 TABLET AT BEDTIME. Simvastatin 20 MG Oral TabletTAKE 1 TABLET AT BEDTIME. Turmeric Curcumin Oral CapsuleTAKE 1 CAPSULE Daily Vitamin B Complex CAPSas directed Allergies Medication No Known Drug Allergies Recorded By: India Bautista; 11/21/2021 11:27:10 AM Family History Mother Family history of cardiac disorder (V17.49) (Z82.49) Family history of diabetes mellitus (V18.0) (Z83.3) Family history of malignant neoplasm (V16.9) (Z80.9) Father Family history of cardiac disorder (V17.49) (Z82.49) Family history of diabetes mellitus (V18.0) (Z83.3) Family history of malignant neoplasm (V16.9) (Z80.9) Brother Family history of diabetes mellitus (V18.0) (Z83.3) Social History Problems Daily caffeine consumption Former smoker (V15.82) (Z87.891) quit as a teen No illicit drug use Occasional alcohol use Review of Systems Constitutional: not feeling tired. Cardiovascular: no intermittent leg claudication and as noted in HPI. Respiratory: no cough and no shortness of breath. Gastrointestinal: no change in bowel habits and no blood in stools. Integumentary: no skin rashes. Neurological: no seizures and no frequent falls. All other systems have been reviewed and are negative for complaint. Vitals Vital Signs Recorded: [id number] 11:27AMRecorded: [id number] 11:20AM [id number], LUE, [id number], RUE, Sitting [id number], LUE, [id number], RUE, Sitting Heart Rate72, Apical Height5 ft 6 in Mibfky226 lb BMI Mfxmxenemh45.8 kg/m2 BSA Calculated2.11 Tobacco Useb) No PHQ-2 #1. Over the last 2 weeks have you felt down, depressed or hopeless? (If yes, answer PHQ-9 below)No PHQ-2 #2. Over the last 2 weeks have you felt little interest or pleasure in doing things? (If yes, answer PHQ-9 below)No Falls Screening (Age 18+)a) No falls within the last year EKG done in office today Physical Exam Constitutional: alert and in no acute distress. Neck: neck is supple, symmetric, trachea midline, no masses and no thyromegaly . Pulmonary: (more content not included)... Normal [facility] Tobacco Screening.on 022 Adult depression screening assessment No [facility] DO Work Phone: Fall risk assessment a) No falls within the last year [facility] Work Phone: Tobacco use status [facility] b) No M [facility] DO Work Phone: BLOOD BANKOrdered By: Edson Allison on 11-13-2021 ABO/Rh Retype Interp Positive Invalid Interpretation Code [facility] BB Subsection CHEMISTRYOrdered By: SYSTEM SYSTEM on 11-13-2021 Anion gap [Moles/Vol] 13 mmol/L Normal 6 - 16 mEq/L [facility] Chloride [Moles/Vol] 101 mmol/L Normal 101 - 1 11 mmol/L [facility] Remisol CO2 [Moles/Vol] 28 mmol/L Normal 21 - 31 mmol/L [facility] Remisol Creatinine [Mass/Vol] 1.0 mg/dL Normal 0.5 - 1.3 mg/dL [facility] Remisol GFR/1.73 sq M.predicted among blacks MDRD (S/P/Bld) [Vol rate/Area] mL/min/1.73 m2 Normal >=59mL/min /1.73 m2 [facility] Chem S GFR/1.73 sq M.predicted among non-blacks MDRD (S/P/Bld) [Vol rate/Area] mL/min/1.73 m2 Normal >=59mL/min /1.73 m2 [facility] Chem S Glucose [Mass/Vol] 134 mg/dL Normal 55 - 199 mg/dL [facility] Potassium [Moles/Vol] 4.9 mmol/L Normal 3.5 - 5.3 mmol/L [facility] Sodium [Moles/Vol] 137 mmol/L Normal 135 - 145 mmol/L [facility] Urea nitrogen [Mass/Vol] 20 mg/dL Normal 5 - 21 mg/dL [facility] Remisol HEMATOLOGYOrdered By: Edson Pratt on 11-13-2021 Erythrocyte distribution width (RBC) [Ratio] 13.8 % Normal 10.9 - 14.2 % [facility] HemeAutoSS Hematocrit (Bld) [Volume fraction] 39.4 % Normal 37.7 - 49.0 % [facility] HemeAutoSS Hemoglobin (Bld) [Mass/Vol] 13.1 g/dL Low 13.5 - 17.5 gm/dL [facility]eAutoSS MCH (RBC) [Entitic mass] 30.7 pg Normal 27.0 - 34.0 pg [facility]SS MCHC (RBC) [Mass/Vol] 33.2 g/dL Normal 31.4 - 36.0 gm/dL [facility] MCV (RBC) [Entitic vol] 92.5 fL Normal 80.0 - 100.0 fL [facility] Platelet mean volume (Bld) [Entitic vol] 8.6 fL Normal 6.4 - 10.8 fL [facility]eAutoSS Platelets (Bld) [#/Vol] 238.0 E9/L Normal 150. 0 - 500.0 E9/L [facility] RBC (Bld) [#/Vol] 4.3 E12/L Normal 4.3 - 5.9 E12/L [facility] WBC corrected for nucl RBC Auto (Bld) [#/Vol] 7.4 E9/L Normal 4.0 - 11.0 E9/L [facility] URINALYSISOrdered By: Leila orellana on 11-13-2021 Bacteria LM Ql (Urine sed) 2+ /HPF Invalid Interpretation Code Trace/HPF [facility] UA Auto SS Bilirubin Ql (U) Negative (11/13/21 11:12 AM) Normal Negative [facility] UA Auto SS Clarity (U) Clear (11/13/21 11:12 AM) Normal Clear [facility] UA Auto SS Color (U) Yellow (11/13/21 11:12 AM) Normal Yellow [facility] UA Auto SS Epithelial cells.squamous LM.HPF (Urine sed) [#/Area] 0-2 /HPF Normal 0-2/HPF [facility] UA Aut o SS Glucose Test strip (U) [Mass/Vol] Negative (11/13/21 11:12 AM) Normal Negative [facility] UA Auto SS Hemoglobin Ql (U) Negative (11/13/21 11:12 AM) Normal Negative [facility] UA Auto SS Ketones (U) [Mass/Vol] Negative (11/13/21 11:12 AM) Normal Negative [facility] UA Auto SS Muniz.plasma/Muniz. RBC (Bld) [Mass ratio] 0-3 /HPF Normal 0-3/HPF [facility] UA A uto SS Nitrite Ql (U) Negative (11/13/21 11:12 AM) Normal Negative [facility] UA Auto SS pH (U) 5.5 *NA* (11/13/21 11:12 AM) Invalid Interpretation Code 5.0 - 9.0 [facility] UA Auto SS Protein (U) [Mass/Vol] Negative (11/13/21 11:12 AM) Normal Negative [facility] UA Auto SS Specific gravity (U) [Rel density] 1.025 *NA* (11/13/21 11:12 AM) Invalid Interpretation Code 1.005 - 1.030 [facility] UA Auto SS UA Spec Desc Clean Catch (11/13/21 11:12 AM) Normal [facility] UA Auto SS Urobilinogen Qn (U) [id number] {Tahmina'U}/dL Normal 0.0 - 1.0 EU/dL [facility] UA Auto SS WBC Auto Ql (U) Negative (11/13/21 11:12 AM) Normal Negative [facility] UA Auto SS WBC LM.HPF (Urine sed) [#/Area] 0-5 /HPF Normal 0-5/HPF [facility] UA Auto SS HbA1c (Bld) [Mass fraction]o n 04-09-2021 A1C HEMOGLOBIN 6.2 [facility] Other Vital Signs Date Time Vital Sign Value Performing Clinician Facility 04-29-2024 09:27-0500 Body height 166.4 cm Ismael Reyna DPM Work Phone: [facility] 04-29-2024 09:27-0500 Body mass index (BMI) [Ratio] 37.86 kg/m2 Ismael Reyna DPM Work Phone: [facility] 04-29-2024 09:27-0500 Body weight 104.78 kg Ismael Reyna DPM Work Phone: [facility] 04-29-2024 09:27-0500 Respiratory rate 16 /min Ismael Reyna DPM Work Phone: [facility] 02-19-2024 09:31-0400 Body height 166.4 cm Ismael Reyna DPM Work Phone: [facility] 02-19-2024 09:31-0400 Body mass index (BMI) [Ratio] 37.86 kg/m2 Ismael Reyna DPM Work Phone: [facility] 02-19-2024 09:31-0400 Body weight 104.78 kg Ismael Reyna DPM Work Phone: [facility] 02-19-2024 09:31-0400 Diastolic blood pressure 75 mm[Hg] Ismael Reyna DPM Work Phone: [facility] 02-19-2024 09:31-0400 Heart rate 81 /min Ismael Reyna DPM Work Phone: [facility] 02-19-2024 09:31-0400 Systolic blood pressure 126 mm[Hg] Ismael Reyna DPM Work Phone: [facility] 01-20-2024 10:43-0400 Body height 166.4 cm Sherrie Kessler PA Work Phone: [facility] 01-20-2024 10:43-0400 Body mass index (BMI) [Ratio] 37.86 kg/m2 Sherrie Kessler PA Work Phone: [facility] 01-20-2024 10:43-0400 Body weight 104.78 kg Sherrie Kessler PA Work Phone: [facility] 01-20-2024 10:43-0400 Diastolic blood pressure 82 mm[Hg] Sherrie Kessler PA Work Phone: [facility] 01-20-2024 10:43-0400 Heart rate 70 /min Sherrie Kessler PA Work Phone: [facility] 01-20-2024 10:43-0400 Respiratory rate 16 /min Sherrie Kessler PA Work Phone: [facility] 01-20-2024 10:43-0400 SaO2% (BldA) [Mass fraction] 97 % Sherrie Kessler PA Work Phone: [facility] 01-20-2024 10:43-0400 Systolic blood pressure 140 mm[Hg] Sherrie ANTON Work Phone: [facility] 01-01-2024 11:01-0400 Body height 167.6 cm Drew Dacosta DO Work Phone: [facility] 01-01-2024 11:01-0400 Body mass index (BMI) [Ratio] 38.09 kg/m2 Drew Dacosta DO Work Phone: [facility] 01-01-2024 11:01-0400 Body weight 107.05 kg Drew Olesya DO Work Phone: [facility] 12-11-2023 09:41-0400 Body height 167.6 cm Ismael Reyna DPM Work Phone: [facility] 12-11-2023 09:41-0400 Body mass index (BMI) [Ratio] 39.06 kg/m2 Ismael Reyna DPM Work Phone: [facility] 12-11-2023 09:41-0400 Body weight 109.77 kg Ismael Reyna DPM Work Phone: [facility] 12-11-2023 09:41-0400 Diastolic blood pressure 80 mm[Hg] Ismael Reyna DPM Work Phone: [facility] 12-11-2023 09:41-0400 Heart rate 78 /min Ismael Reyna DPM Work Phone: [facility] 12-11-2023 09:41-0400 Systolic blood pressure 126 mm[Hg] Ismael Reyna DPM Work Phone: [facility] 12-10-2023 14:03-0400 Body height 167.64 cm DO Kaveh Kuns Work Phone: [facility] 12-10-2023 14:03-0400 Body mass index (BMI) [Ratio] 37.5 kg/m2 DO Kaveh Kuns Work Phone: [facility] 12-10-2023 14:03-0400 Body weight 105.68 kg DO Kaveh Kuns Work Phone: [facility] 12-10-2023 14:03-0400 Diastolic blood pressure 60 mm[Hg] DO Kaveh Kuns Work Phone: [facility] 12-10-2023 14:03-0400 Heart rate 71 /min DO Kaveh Kuns Work Phone: [facility] 12-10-2023 14:03-0400 Respiratory rate 16 /min DO Kaveh Kuns Work Phone: [facility] 12-10-2023 14:03-0400 SaO2% (BldA) [Mass fraction] 71 % DO Kaveh Kuns Work Phone: [facility] 12-10-2023 14:03-0400 Systolic blood pressure 130 mm[Hg] DO Kaveh Kuns Work Phone: [facility] 09-24-2023 11:48-0400 Diastolic blood pressure 62 mm[Hg] DO Kaveh Kuns Work Phone: [facility] 09-24-2023 11:48-0400 Heart rate 60 /min DO Kaveh Kuns Work Phone: [facility] 09-24-2023 11:48-0400 Respiratory rate 16 /min DO Kaveh Kuns Work Phone: [facility] 09-24-2023 11:48-0400 SaO2% (BldA) [Mass fraction] 98 % DO Kaveh Kuns Work Phone: [facility] 09-24-2023 11:48-0400 Systolic blood pressure 125 mm[Hg] DO Kaveh Kuns Work Phone: [facility] 09-24-2023 08:46-0400 Body height 167.64 cm DO Kaveh Kuns Work Phone: [facility] 09-24-2023 08:46-0400 Body weight 106.59 kg DO Kaveh Kuns Work Phone: [facility] 04-04-2023 09:15-0500 Body height 167.64 cm Nely Wilhelm Other [employer] Other 04-04-2023 09:15-0500 Body mass index (BMI) [Ratio] 38.01 kg/m2 Nely Wilhelm Other [employer] Other 04-04-2023 09:15-0500 Body weight 106.82 kg Nely Wilhelm Other [employer] Other 04-04-2023 09:15-0500 Diastolic blood pressure 76 mm[Hg] Nely Wilhelm Other [employer] Other 04-04-2023 09:15-0500 SaO2% (BldA) [Mass fraction] 98 % Nely Wilhelm Other [employer] Other 04-04-2023 09:15-0500 Systolic blood pressure 158 mm[Hg] Nely Wilhelm Other [employer] Other 02-17-2023 12:35-0400 Blood Pressure Location Anthony SIBLEY [facility] 02-17-2023 12:35-0400 Diastolic blood pressure 79 mm[Hg] Anthony SIBLEY [facility] 02-17-2023 12:35-0400 Heart rate 86 /min Anthony SIBLEY [facility] 02-17-2023 12:35-0400 Respiratory rate 16 /min Anthony SIBLEY [facility] 02-17-2023 12:35-0400 Systolic blood pressure 133 mm[Hg] Anthony SIBLEY [facility] 09-19-2022 13:15-0400 Body height 167.64 cm Kaveh Marc Other [employer] Other 07-04-2022 15:40-0400 Body height 167.64 cm Killian Taylor Other [employer] Other 07-04-2022 15:40-0400 Body mass index (BMI) [Ratio] 36.15 kg/m2 Killian Taylor Other [employer] Other 07-04-2022 15:40-0400 Body weight 101.61 kg Killian Taylor Other [employer] Other 07-04-2022 15:40-0400 Diastolic blood pressure 70 mm[Hg] Killian Taylor Other [employer] Other 07-04-2022 15:40-0400 Systolic blood pressure 138 mm[Hg] Killian Taylor Other [employer] Other 06-17-2022 09:45-0500 Body height 167.64 cm Kaveh Ramiros Other [employer] Other 06-17-2022 09:45-0500 Body mass index (BMI) [Ratio] 36.15 kg/m2 Kaveh Kuns Other [employer] Other 06-17-2022 09:45-0500 Body weight 101.61 kg Kaveh Kuns Other [employer] Other 06-17-2022 09:45-0500 Diastolic blood pressure 64 mm[Hg] Kaveh Kuns Other [employer] Other 06-17-2022 09:45-0500 Respiratory rate 16 /min Kaveh Tran Other [employer] Other 06-17-2022 09:45-0500 SaO2% (BldA) [Mass fraction] 97 % Kavehshazia Rubios Other [employer] Other 06-17-2022 09:45-0500 Systolic blood pressure 130 mm[Hg] Kaveh Rubios Other [employer] Other 04-02-2022 15:30-0500 Body height 167.64 cm Micah Forrest Other [employer] Other 04-02-2022 15:30-0500 Body mass index (BMI) [Ratio] 34.7 kg/m2 Micah Forrest Other [employer] Other 04-02-2022 15:30-0500 Body temperature 98.4 [degF] Micah Forrest Other [employer] Other 04-02-2022 15:30-0500 Body weight 97.52 kg Micah Forrest Other [employer] Other 04-02-2022 15:30-0500 Diastolic blood pressure 74 mm[Hg] Micah Forrest Other [employer] Other 04-02-2022 15:30-0500 SaO2% (BldA) [Mass fraction] 99 % Micah Forrest Other [employer] Other 04-02-2022 15:30-0500 Systolic blood pressure 161 mm[Hg] Micah Forrest Other [employer] Other 12-25-2021 15:12-0400 Diastolic blood pressure 72 mm[Hg] [facility] 12-25-2021 15:12-0400 Heart rate 69 /min [facility] 12-25-2021 15:12-0400 Mean blood pressure 94 mm[Hg] [facility] 12-25-2021 15:12-0400 Respiratory rate 18 /min [facility] 12-25-2021 15:12-0400 SaO2% (BldA) [Mass fraction] 99 % [facility] 12-25-2021 15:12-0400 Systolic blood pressure 139 mm[Hg] [facility] 12-25-2021 13:08-0400 Body temperature 98.42 [degF] [facility] 12-25-2021 13:08-0400 Diastolic blood pressure 69 mm[Hg] [facility] 12-25-2021 13:08-0400 Heart rate 68 /min [facility] 12-25-2021 13:08-0400 Mean blood pressure 102 mm[Hg] [facility] 12-25-2021 13:08-0400 Respiratory rate 16 /min [facility] 12-25-2021 13:08-0400 SaO2% (BldA) [Mass fraction] 99 % [facility] 12-25-2021 13:08-0400 Systolic blood pressure 167 mm[Hg] Clayton Cueto [facility] 12-03-2021 20:10-0400 Blood Pressure Location Drew Olesya [facility] 12-03-2021 20:10-0400 Diastolic blood pressure 74 mm[Hg] Drew Olesya [facility] 12-03-2021 20:10-0400 Heart rate 79 /min Drew Olesya [facility] 12-03-2021 20:10-0400 Respiratory rate 18 /min Drew Olesya [facility] 12-03-2021 20:10-0400 SaO2% (BldA) [Mass fraction] 95 % Drew Olesya [facility] 12-03-2021 20:10-0400 Systolic blood pressure 165 mm[Hg] Drew Olesya [facility] 12-03-2021 16:21-0400 Blood Pressure Location Drew Olesya [facility] 12-03-2021 16:21-0400 Diastolic blood pressure 72 mm[Hg] Drew Olesya [facility] 12-03-2021 16:21-0400 Heart rate 61 /min Drew Dacosta [facility] 12-03-2021 16:21-0400 Mean blood pressure 96 mm[Hg] Drew Dacosta [facility] 12-03-2021 16:21-0400 Respiratory rate 18 /min Drew Olesya [facility] 12-03-2021 16:21-0400 SaO2% (BldA) [Mass fraction] 95 % Drew Dacosta [facility] 12-03-2021 16:21-0400 Systolic blood pressure 146 mm[Hg] Drew Olesya [facility] 12-03-2021 16:15-0400 Body temperature 97.52 [degF] Drew Olesya [facility] 12-03-2021 16:15-0400 Diastolic blood pressure 73 mm[Hg] Drew Olesya [facility] 12-03-2021 16:15-0400 Heart rate 64 /min Drew Olesya [facility] 12-03-2021 16:15-0400 Respiratory rate 21 /min Drew Olesya [facility] 12-03-2021 16:15-0400 SaO2% (BldA) [Mass fraction] 98 % Drew Olesya [facility] 12-03-2021 16:15-0400 Systolic blood pressure 127 mm[Hg] Drew Olesya [facility] 12-03-2021 16:10-0400 Respiratory rate 18 /min Drew Olesya [facility] 12-03-2021 15:55-0400 Respiratory rate 18 /min Drew Olesya [facility] 12-03-2021 15:28-0400 Body temperature 98.06 [degF] Drew Dacosta [facility] 12-03-2021 15:25-0400 Respiratory rate 11 /min Drew Olesya [facility] 12-03-2021 10:40-0400 Mean blood pressure 106 mm[Hg] Drew Dacosta [facility] 12-03-2021 10:40-0400 Blood Pressure Location Drew Dacosta [facility] 12-03-2021 10:39-0400 Body temperature 98.24 [degF] Drew Dacosta [facility] 12-03-2021 10:39-0400 Mean blood pressure 108 mm[Hg] Drew Dacosta [facility] 12-03-2021 10:39-0400 Heart rate 76 /min Drew Dacosta [facility] 11-21-2021 11:27-0400 Diastolic blood pressure 60 mm[Hg] Drew Dacosta [facility] DO Work Phone: 11-21-2021 11:27-0400 Systolic blood pressure 138 mm[Hg] Drew Dacosta Work Phone[facility] [facility] DO Work Phone: 11-21-2021 11:20-0400 Body height 167.64 cm Drew Dacosta Work Phone[facility] DO Work Phone: 11-21-2021 11:20-0400 Body mass index (BMI) [Ratio] 36.8 kg/m2 Drew Dacosta Work Phone: [facility] [facility] DO Work Phone: 11-21-2021 11:20-0400 Body surface area Derived from formula 2.11 m2 Drew Dacosta Work Phone: [facility] DO Work Phone: 11-21-2021 11:20-0400 Body weight 103.42 kg Drew Dacosta Work Phone: [facility] [facility] DO Work Phone: 11-21-2021 11:20-0400 Diastolic blood pressure 62 mm[Hg] Drew Dacosta Work Phone: [facility] [facility] DO Work Phone: 11-21-2021 11:20-0400 Heart rate 72 /min Drew Dacosta Work Phone: [facility] [facility] DO Work Phone: 11-21-2021 11:20-0400 Systolic blood pressure 142 mm[Hg] Drew Alysia Dacosta Work Phone: [facility] DO Work Phone: 11-13-2021 10:38-0400 Diastolic blood pressure 76 mm[Hg] Drew Olesya [facility] 11-13-2021 10:38-0400 Heart rate 72 /min Drew Olesya [facility] 11-13-2021 10:38-0400 Mean blood pressure 106 mm[Hg] Drew Olesya [facility] 11-13-2021 10:38-0400 SaO2% (BldA) [Mass fraction] 99 % Drew Olesya [facility] 11-13-2021 10:38-0400 Systolic blood pressure 166 mm[Hg] Drew Olesya [facility] 11-13-2021 10:38-0400 Blood Pressure Location Drew Dacosta [facility] 11-13-2021 10:38-0400 Body temperature 98.06 [degF] Drew Olesya [facility] 11-13-2021 10:38-0400 Respiratory rate 18 /min Drew Olesya [facility] 09-14-2021 13:45-0400 Body height 167.64 cm Kvaeh Tran Other [facility] [employer] Other 09-14-2021 13:45-0400 Body mass index (BMI) [Ratio] 37.67 kg/m2 Kaveh [employer] Other [facility] [employer] Other 09-14-2021 13:45-0400 Body weight 105.87 kg Kaveh Tran Other [employer] Other 09-14-2021 13:45-0400 Diastolic blood pressure 70 mm[Hg] Kaveh Tran Other [employer] Other 09-14-2021 13:45-0400 Respiratory rate 18 /min Kaveh Tran Other [employer] Other 09-14-2021 13:45-0400 SaO2% (BldA) [Mass fraction] 95 % Kaveh Tran Other [employer] Other 09-14-2021 13:45-0400 Systolic blood pressure 140 mm[Hg] Kaveh Tran Other [employer] Other 08-20-2021 11:35-0400 Blood Pressure Location [employer] [facility] 08-20-2021 11:35-0400 Diastolic blood pressure 89 mm[Hg] Anthony [employer] [facility] 08-20-2021 11:35-0400 Heart rate 70 /min [facility]IB[facility] 08-20-2021 11:35-0400 Respiratory rate 16 /min [facility] 08-20-2021 11:35-0400 Systolic blood pressure 139 mm[Hg] Anthony SIBLEY [facility] 04-09-2021 08:30-0500 Body height 167.64 cm Kaveh Kuns Other [employer] Other 04-09-2021 08:30-0500 Body mass index (BMI) [Ratio] 38.6 kg/m2 Kaveh Kuns Other [employer] Other 04-09-2021 08:30-0500 Body weight 108.5 kg Kaveh Kuns Other [employer] Other 04-09-2021 08:30-0500 Diastolic blood pressure 74 mm[Hg] Kaveh Kuns Other [employer] Other 04-09-2021 08:30-0500 Respiratory rate 18 /min Kaveh Kuns Other [employer] Other 04-09-2021 08:30-0500 SaO2% (BldA) [Mass fraction] 99 % Kaveh Kuns Other [employer] Other 04-09-2021 08:30-0500 Systolic blood pressure 146 mm[Hg] Kaveh Kuns Other [employer] Other 03-01-2021 10:30-0500 Body height 167.64 cm Micah Forrest Other [employer] Other 03-01-2021 10:30-0500 Body mass index (BMI) [Ratio] 38.89 kg/m2 Micah Forrest Other [employer] Other 03-01-2021 10:30-0500 Body temperature 98 [degF] Micah Forrest Other [employer] Other 03-01-2021 10:30-0500 Body weight 109.32 kg Micah Forrest Other [employer] Other 03-01-2021 10:30-0500 Diastolic blood pressure 71 mm[Hg] Micah Forrest Other [employer] Other 03-01-2021 10:30-0500 SaO2% (BldA) [Mass fraction] 99 % Micah Forrest Other [employer] Other 03-01-2021 10:30-0500 Systolic blood pressure 153 mm[Hg] Micah Forrest Other [employer] Other Encounters Encounter Date Encounter Type Care Provider Facility Start: 04-29-2024 End: 04-29-2024 Bamboo flowsheet Ismael Reyna DPM Work Phone: [facility] Start: 04-29-2024 End: 04-29-2024 Bamboo flowscelestina Reyna DPM Work Phone: [facility] Start: 04-29-2024 End: 04-29-2024 ambulatory ISMAEL REYNA Not Available Start: 04-29-2024 End: 04-29-2024 Patient encounter procedure Ismael Reyna DPM Work Phone: [facility] Comment on above: 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); Pain due to onychomycosis of toenails of both feet; Acquired deformity of left toe; Acquired deformity of right toe Start: 03-08-2024 End: 03-08-2024 Bamboo flowsheet Yovanny Liu [employer]ELD [employer]ING ASSEMBLER-CHIPPER MACHINE OPERATOR Work Phone: [facility] Start: 03-08-2024 End: 03-08-2024 Bamboo flowsheet Yovanny Liu FIELD RING ASSEMBLER-CHIPPER MACHINE OPERATOR Work Phone: [facility] Start: 03-08-2024 End: 03-08-2024 ambulatory YOVANNY LIU Not Available Start: 03-08-2024 End: 03-08-2024 Office outpatient visit 15 minutes Yovanny Liu FIELD RING ASSEMBLER-CHIPPER MACHINE OPERATOR Work Phone: [facility] Comment on above: Melanocytic nevus of trunk (Primary Dx); Lentigines; Other seborrheic dermatitis; History of basal cell carcinoma; Inflamed seborrheic keratosis; Neoplasm of unspecified behavior of bone, soft tissue, and skin Start: 02-19-2024 End: 02-19-2024 Bamboo flowsheet Ismael Reyna DPM Work Phone: [facility] Start: 02-19-2024 End: 02-19-2024 Bamboo flowsheet Ismael Reyna DPM Work Phone: [facility] Start: 02-19-2024 End: 02-19-2024 Patient encounter procedure Ismael Reyna DPM Work Phone: [facility] Comment on above: 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); Pain due to onychomycosis of toenails of both feet; Acquired deformity of left toe; Acquired deformity of right toe Start: 02-19-2024 End: 02-19-2024 ambulatory ISMAEL REYNA Not Available Start: 01-20-2024 End: 01-20-2024 Bamboo flowsheet Sherrie ANTON Work Phone: [facility] Start: 01-20-2024 End: 01-20-2024 Bamboo flowsheet Sherrie ANTON Work Phone: [facility] Start: 01-20-2024 End: 01-20-2024 ambulatory SHERRIE KESSLER Not Available Start: 01-20-2024 End: 01-20-2024 Office outpatient visit 15 minutes Sherrie ANTON Work Phone: [facility] Comment on above: Polyneuropathy (Prim darren Dx); Lumbar radiculopathy; Restless leg syndrome; Degenerative disc disease, cervical Start: 01-01-2024 End: 01-01-2024 Patient encounter procedure Drew Dacosta DO Work Phone: [facility] Comment on above: History of left knee replacement (Primary Dx) Start: 01-01-2024 End: 01-01-2024 ambulatory DREW Alysia DACOSTA Not Available Start: 01-01-2024 End: 01-01-2024 ambulatory DREW Alysia DACOSTA Not Available Start: 12-11-2023 End: 12-11-2023 Bamboo flowsheet Ismael Reyna DPM Work Phone: [facility] Start: 12-11-2023 End: 12-11-2023 Bamboo flowsheet Ismael Reyna DPM Work Phone: [facility] Start: 12-11-2023 End: 12-11-2023 ambulatory ISMAEL REYNA Not Available Start: 12-11-2023 End: 12-11-2023 Patient encounter procedure Ismael Reyna DPM Work Phone: [facility] Comment on above: 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); Onychomycosis; Toe pain, bilateral Start: 12-10-2023 End: 12-10-2023 ambulatory DO Kaveh Kuns Work Phone: [facility] Work Phone: Start: 12-10-2023 End: 12-10-2023 Patient encounter procedure DO [facility]aveh Kuns [facility] [place] Work Phone: Start: 11-27-2023 Non-patient / Non-visit DO Kaveh Kuns Work Phone: [facility] Work Phone: Start: 11-04-2023 Non-patient / Non-visit DO Kaveh Kuns Work Phone: [facility] [place] Work Phone: Start: 09-24-2023 Non-patient / Non-visit DO Kaveh Kuns Work Phone: [facility] Gastroenterology Work Phone: Start: 09-24-2023 End: 09-24-2023 Admission to same day surgery center DO Kaveh Kuns Work Phone: [facility] Work Phone: Start: 09-24-2023 End: 09-24-2023 ambulatory DO Kaveh Kuns Work Phone: [facility] Work Phone: Start: 09-09-2023 End: 09-09-2023 ambulatory DO Kaveh Kuns Work Phone: [facility] Work Phone: Start: 09-09-2023 End: 09-09-2023 Patient encounter procedure DO Kaveh Kuns Work Phone: [facility] [place] Work Phone: Start: 08-21-2023 End: 08-21-2023 ambulatory ISMAEL REYNA Not Available Start: 08-05-2023 End: 08-05-2023 ambulatory SHERRIE KESSLER Not Available Start: 06-24-2023 End: 06-24-2023 Patient encounter procedure DO Kaveh Kuns Work Phone: [facility] [address] Work Phone: Start: 06-24-2023 End: 06-24-2023 ambulatory Kaveh Kuns Facility:[facility] Start: 06-12-2023 End: 06-12-2023 ambulatory ISMAEL REYNA Not Available Start: 04-04-2023 Office outpatient visit 25 minutes Nely Wilhelm [facility] Start: 04-04-2023 End: 04-04-2023 Patient encounter procedure DO Kavehshazia Tran Work Phone: [facility] Work Phone: Start: 04-04-2023 End: 04-04-2023 ambulatory DO Kaveh Kuns Work Phone: [facility] Work Phone: Start: 03-21-2023 End: 03-21-2023 ambulatory Kaveh Ramiros Other [facility] Other Start: 03-21-2023 Nursing evaluation o f patient and report Kaveh Tran [facility] [place] Start: 03-21-2023 Telephone encounter Kaveh Rubios [facility] [place] Start: 03-17-2023 End: 03-17-2023 ambulatory Kaveh Tran Other [employer] Other Start: 03-17-2023 Telephone encounter Kaveh Rubios [facility] [place] Start: 02-17-2023 End: 02-18-2023 ambulatory Anthony SIBLEY Facility:[facility] [place] Start: 02-17-2023 End: 02-17-2023 Patient encounter procedure Anthony SIBLEY [facility] [place] Start: 01-24-2023 End: 01-25-2023 ambulatory Anthony SIBLEY Facility:[facility] [place] Start: 09-19-2022 End: 09-19-2022 ambulatory Kavehshazia Tran Other [employer] Other Start: 09-19-2022 Office outpatient visit 15 minutes Kaveh Tran [facility] [place] Start: 09-19-2022 Telephone encounter Kaveh Tran [facility] [place] Start: 09-17-2022 End: 09-18-[address] KAVEH TRAN Facility:[facility] Start: 09-02-2022 End: 09-03-[address] KAVEH TRAN Facility:[facility] Start: 08-21-2022 End: 08-22-[address] KAVEH TRAN Facility:[facility] Start: 08-20-2022 End: 08-20-2022 ambulatory Kaveh Marc Other [facility] Other Start: 08-20-2022 Telephone encounter Kavehshazia Tran [facility] Start: 07-04-2022 End: 07-04-2022 Patient encounter procedure DO Kaveh Kuns Work Phone: [facility] [address] Work Phone: Start: 07-04-2022 End: 07-04-2022 ambulatory DO Kaveh Kuns Work Phone: [facility] Work Phone: Start: 07-04-2022 Office outpatient visit 15 minutes Killian Taylor [facility] Start: 06-17-2022 End: 06-17-2022 ambulatory Caroline Fitt Other [facility] Other Start: 06-17-2022 Office outpatient visit 25 minutes Kaveh Tran [facility] Start: 06-17-2022 Telephone encounter Caroline Jerelt [facility] Start: 06-05-2022 End: 06-05-2022 ambulatory DO Kaveh Kuns Work Phone: [facility] Work Phone: Start: 06-05-2022 End: 06-05-2022 Patient encounter procedure DO Kaveh Kuns Work Phone: [facility] [address] Work Phone: Start: 05-30-2022 End: 05-30-2022 ambulatory Kaveh Kuns Other [facility] Other Start: 05-30-2022 Telephone encounter Kaveh Kuns [facility] Start: 05-21-2022 End: 05-21-2022 ambulatory DO Kaveh Kuns Work Phone: [facility] Work Phone: Start: 05-21-2022 End: 05-21-2022 Patient encounter procedure DO Kaveh Kuns Work Phone: [facility] [address] [place] Work Phone: Start: 05-06-2022 End: 05-06-2022 ambulatory DO Kaveh Kuns Work Phone: [facility] Work Phone: Start: 05-06-2022 End: 05-06-2022 Patient encounter procedure DO Kaveh Kuns Work Phone: [facility] [place] Work Phone: Start: 05-03-2022 End: 05-03-2022 ambulatory DO Kaveh Kuns Work Phone: [facility] Work Phone: Start: 05-03-2022 End: 05-03-2022 Patient encounter procedure DO Kaveh Kuns Work Phone: [facility] [place] Work Phone: Start: 04-02-2022 End: 04-02-2022 Patient encounter procedure DO Kaveh Kuns Work Phone: [facility] Start: 04-02-2022 End: 04-02-2022 ambulatory DO Kaveh Kuns Work Phone: [facility] Work Phone: Start: 04-02-2022 Office outpatient visit 25 minutes Micah Forrest [facility] Start: 03-20-2022 End: 03-20-2022 ambulatory Kaveh Kuns Other [facility] Other Start: 03-20-2022 Telephone encounter Kaveh Kuns [facility] Start: 03-18-2022 End: 03-18-2022 ambulatory Kaveh Tran Other [facility] Other Start: 03-18-2022 Telephone encounter Kaveh Tran [facility] Start: 12-26-2021 End: 12-26-2021 ambulatory Kaveh Tran Other [facility] Other Start: 12-26-2021 Telephone encounter Kaveh Tran [facility] Start: 12-25-2021 End: 12-25-2021 Emergency department patient visit Clayton Cueto [facility] Start: 12-22-2021 End: 12-22-2021 Lab Drop off Suki Amanda Dunbar [facility] Start: 12-03-2021 End: 12-03-2021 Admission to same day surgery center Drew Dacosta [facility] Start: 11-21-2021 ambulatory Drew Dacosta Sharri acility: Start: 11-21-2021 Office consultation new/estab patient 60 min Drew Dacosta Work Phone: [facility] [place] [address] DO Work Phone: Start: 11-19-2021 End: 11-24-2021 Pre-admission assessment Tramaine Jones [facility] Start: 11-13-2021 ambulatory Drew Dacosta Facility : Start: 11-13-2021 End: 11-13-2021 Patient encounter procedure Drew Dacosta [facility] Start: 09-14-2021 End: 09-14-2021 ambulatory Kaveh Rubioketty Other [employer] Other Start: 09-14-2021 Office outpatient visit 25 minutes Kaveh Kuns [facility] [place] Start: 09-05-2021 End: 09-05-2021 ambulatory Kaveh Kuns Other [employer] Other Start: 09-05-2021 Telephone encounter Kaveh Kuns [facility] [place] Start: 08-20-2021 End: 08-20-2021 Patient encounter procedure Anthony Jimi SIBLEY [facility] Start: 08-09-2021 End: 08-09-2021 ambulatory Kaveh Kuns Other [employer] Other Start: 08-09-2021 Telephone encounter Kaveh Kuns [facility] [place] Start: 04-09-2021 End: 04-09-2021 ambulatory Kaveh Kuns Other [employer] Other Start: 04-09-2021 Office outpatient visit 25 minutes Kaveh Kuns [facility] [place] Start: 03-13-2021 End: 03-13-2021 ambulatory Kaveh Kuns Other [facility] Other Start: 03-13-2021 Telephone encounter Kaveh Kuns [facility] [place] Start: 03-01-2021 End: 03-01-2021 ambulatory Micah Forrest Other [employer] Other Start: 03-01-2021 Office outpatient visit 40 minutes Micah Forrest [facility] Start: 07-15-2018 Patient encounter procedure KAVEH KUNS Facility:[id number] Patient encounter status Drew Dacosta Work Phone: [facility] [place] 250 DO Work Phone: Procedures Date Procedure Procedure Detail Performing Clinician Start: 03-08-2024 SKIN / NAIL BIOPSY Leigh peter Liu FIELD RING ASSEMBLER-CHIPPER MACHINE OPERATOR Work Phone: Start: 03-08-2024 CRYOTHERAPY SKIN LESION Yovanny Liu FIELD RING ASSEMBLER-CHIPPER MACHINE OPERATOR Work Phone: Start: 01-01-2024 Radiologic examinati on knee 3 views Drew Dacosta DO Work Phone: Start: 09-24-2023 End: 09-24-2023 Colonoscopy DO Kaveh Tran Work Phone: Start: 09-09-2023 RSV (POC) DO Kaveh Christian moctezuma Work Phone: Start: 08-21-[address] KAVEH TRAN Comment on above: Performed By: #### P SAD #### [facility] [address] [place] [address] Dr. Beto Neal Start: 06-05-2022 X-ray of both feet DO B ana Tran Work Phone: Start: 05-03-2022 XR pre/post mri xray DO Kaveh Tran Work Phone: Start: 05-03-2022 MR lumbar spine wo con DO Kaveh Tran Work Phone: Start: 12-03-2021 Total knee replacement Drew Dacosta Start: 04-04-2020 Arthroscopy of knee Cecily SIBLEY Start: 06-10-2014 Teleradiotherapy procedure Anthony SIBLEY Start: 09-23-2012 Radical prostatectomy Soheila SIBLEY Start: 07-22-2012 Transrectal biopsy o f prostate using ultrasound guidance Anthony SIBLEY Cataract surgery Drew pantoja Work Phone: Extraction of cataract Jennifer SIBLEY H/O: surgery Micah Forrest Other History of operative procedure on knee History of left knee replacement Drew Dacosta DO Work Phone: Lumbar spinal fusion Anthony SIBLEY Operative procedure on knee Drew Dacosta Work Phone: Operative procedure on spinal structure Drew Dacosta Work Phone: Procedure on prostate Michae tiarra Dacosta Work Phone: Tonsillectomy Drew Hatfield Maddi figueroa Work Phone: Total colonoscopy Drew Dacosta Work Phone: Plan of Treatment Date Care Activity Detail Author Start: 09-23-2033 Screening for malignant neoplasm of colon [facility] Start: 03-08-2025 End: 03-08-2025 Patient encounter procedure 03/08/2025 1:25 PM EST Office Visit [facility] [address] [place] [id number] Yovanny Liu APRN-CHIPPER MACHINE OPERATOR [address] [place] [address] [facility] Start: 01-04-2025 End: 01-04-2025 Patient encounter procedure 01/04/2025 10:30 AM EDT Office Visit [facility] [address] [place] [address] Drew Dacosta, DO [address] [place], [place] [id number] [facility] Start: 08-03-2024 End: 08-03-2024 Patient encounter procedure [facility] [place] [facility] Start: 07-08-2024 End: 07-08-2024 Patient encounter procedure 07/08/2024 9:40 AM EDT Office Visit [facility] [address] [place] [phone] Ismael Reyna, DPM [address] [facility] [address] [place] [address] [facility] Start: 04-29-2024 End: 04-29-2024 Patient encounter procedure 04/29/2024 9:20 AM EST Office Visit [facility] [address] [place] [address] Ismael Reyna, DPM [address] [address] [facility] Start: 03-08-2024 End: 03-08-2024 Patient encounter procedure 03/08/2024 1:50 PM EST Office Visit [facility] [address] [place] [phone] Yovanny Liu, FIELD RING ASSEMBLER-CHIPPER MACHINE OPERATOR [address] [place] [address] [facility] Start: 02-19-2024 End: 02-19-2024 Patient encounter procedure 02/19/2024 9:20 AM EDT Office Visit [facility] [address] [place] [address] Ismael Reyna, DPM [address] [address] [facility] Start: 01-20-2024 End: 01-20-2024 Patient encounter procedure 01/20/2024 10:40 AM EDT Office Visit [facility] [place] [address] [place] [phone] Sherrie Kessler [place] [address] [place] [address] [facility] [place] [facility] Start: 01-01-2024 End: 01-01-2024 Patient encounter procedure 01/01/2024 11:00 AM EDT Office Visit [facility] [address] [place] [id number] Drew Dacosta, DO [address] [place] [address] [facility] Start: 12-21-2023 Influenza vaccination Influenza Vaccine (#1) [facility] Start: 09-24-2023 [facility] Start: 05-21-2022 [facility] Start: 1950 Screening for malignant neoplasm of colon [facility] Albumin [Mass/volume ] in Serum or Plasma [facility] Albumin/Globulin ratio [facility] C reactive protein [Mass/volume] in Serum or Plasma [facility] Comprehensive metabo lic 2000 panel - Serum or Plasma [facility] Dermatopathology exam Dermatopat hology exam Pathology and Cytology Timed Neoplasm of unspecified behavior of bone, soft tissue, and skin Release Upon Ordering for 1 Occurrences starting 03/08/2024 [facility] Work Phone: Comment on above: Release Upon Ordering for 1 Occurrences starting 03/08/2024 Electrophoresis: [id number] [facility] Electrophoresis: [id number] [facility] Electrophoresis: beta-globulin [facility] Electrophoresis: wendy ma globulin [facility] Globulin [Mass/volum e] in Serum [facility] Homogenous nuclear A b pattern [Titer] in Serum [facility] Methylmalonate [Moles/volume] in Serum or Plasma [facility] Nuclear Ab [Titer] i n Serum [facility] Patient Education Hemorrhoids Co shweta polyps Diverticulosis Know your Meds [facility] Work Phone: Protein [Mass/volume ] in Serum or Plasma [facility] Immunizations Immunization Date Immunization Notes Care Provider Fa cility 01-30-2023 Influenza vaccine, quadrivalent, adjuvanted DO Kaveh Tran Work Phone: [facility] 01-30-2023 influenza virus vaccine, unspecified formulation Ismael Reyna DPM Work Phone: [facility] 01-31-2022 COVID-19 Pfizer (bivalent) Kaveh Tran Other [facility] 01-31-2022 Fluzone QIV High-Dos e 65YR+ DO Kaveh Tran Work Phone: [facility] 01-16-2021 Fluzone High-Dose Quadrivalent 0.7 ML Intramuscular Suspension Prefilled Syringe Drew Dacosta Work Phone: [facility] 01-16-2021 Pfizer-BioNTech COVID-19 Vacc 30 MCG/0.3ML Intramuscular Suspension Drew Dacosta Work Phone: [facility] 06-21-2020 COVID-19 Vaccine Pfi zer - Documentation Purposes Only Micah Forrest Other [facility] 05-31-2020 COVID-19 Vaccine Pfi zer - Documentation Purposes Only Micah Forrest Other [facility] 04-21-2020 SARS-CoV-2 (COVID-19 ) mRNA-1273 vaccine Anthony TOÑITO [facility] 03-23-2020 pneumococcal polysaccharide vaccine, 23 valent Micah Forrest Other [facility] Other 03-23-2020 pneumococcal polysaccharide vaccine, 23 valent Micah Forrest Other [facility] 01-18-2020 Fluad Quadrivalent 0 .5 ML Intramuscular Prefilled Syringe Drew Dacosta Work Phone: [facility] 01-18-2020 influenza, seasonal, injectable Micah Forrest Other [facility] 11-18-2018 zoster vaccine recombinant Micah Forrest Other [facility] 07-30-2018 zoster vaccine recombinant Micah Forrest Other [facility] 04-28-2018 hepatitis A vaccine, adult dosage Drew Dacosta Work Phone: [facility] 04-28-2018 tetanus and diphther ia toxoids, adsorbed, preservative free, for adult use (5 Lf of tetanus toxoid and 2 Lf of diphtheria toxoid) DO [employer] Work Phone: [facility] 04-28-2018 tetanus toxoid, redu pelon diphtheria toxoid, and acellular pertussis vaccine, adsorbed Micah Forrest Other [facility] 04-28-2018 typhoid capsular polysaccharide vaccine Drew Dacosta Work Phone: [facility] 02-10-2018 influenza, seasonal, injectable Micah Forrest Other [facility] 02-10-2018 pneumococcal conjuga te vaccine, 13 valent Micah Forrest Other [facility] 03-10-2015 pneumococcal polysaccharide vaccine, 23 valent Micah Forrest Other [facility] 03-09-2015 influenza, injectabl e, quadrivalent, preservative free DO [employer] Work Phone: [facility] 03-09-2015 pneumococcal polysaccharide vaccine, 23 valent Drew Dacosta Work Phone: [facility] 03-09-2015 influenza, injectabl e, quadrivalent, contains preservative Micah Forrest Other [facility] Other 03-08-2015 influenza, injectabl e, quadrivalent, preservative free Drew Dacosta Work Phone: [facility] 03-06-2015 zoster vaccine, live Micah garcia Other [facility] 05-05-2014 influenza, injectabl e, quadrivalent, contains preservative Drew Dacosta Work Phone: [facility] 02-09-2013 influenza virus vaccine, unspecified formulation DO [employer] Work Phone: [facility] 02-09-2013 influenza virus vaccine, split virus (incl. purified surface antigen) Micah Forrest Other [facility] Other 05-08-2012 influenza virus vaccine, split virus (incl. purified surface antigen) Micah Forrest Other [facility] Other 05-08-2012 influenza virus vaccine, unspecified formulation DO Kaveh Tran Work Phone: [facility] 08-03-2002 hepatitis A vaccine, unspecified formulation Drew Hatfield Dacosta Work Phone: [facility] 08-03-2002 hepatitis B vaccine, adult dosage Drew Alysia Dacosta Work Phone: [facility] 03-29-2002 hepatitis B vaccine, adult dosage Drew Hatfield Dacosta Work Phone: [facility] 03-29-2002 TD(adult) unspecifie d formulation Drew Alysia Dacosta Work Phone: [facility] 02-02-2002 hepatitis A vaccine, unspecified formulation Drew Dacosta Work Phone: [facility] 02-02-2002 hepatitis B vaccine, adult dosage Drew Hatfield Dacosat Work Phone: [facility] Payers Date Payer Category Payer Self-pay [id number] 2017 Medicare [id number] 2017 Private Health Insurance [id number] 1959 Medicare [id number] [id number] 1959 Private Health Insurance [id number] 1952 Unknown [id number] 2.16.840.1.720213.3.579.2.355 1952 Unknown [id number] 2.16.840.1.015745.3.579.2.356 1952 Unknown [id number] 2.16.840.1.951753.3.579.2.356 1952 Unknown [id number] 2.16.840.1.095752.3.579.2.593 1952 Unknown [id number] 2.16.840.1.100495.3.579.2.593 1952 Unknown [id number] 2.16.840.1.847414.3.579.2.593 1952 Unknown [id number] 2.16.840.1.221010.3.579.2.727 1952 Unknown [id number] 2.16.840.1.962252.3.579.2.727 1952 Unknown [id number] 2.16.840.1.758581.3.579.2.1259 1952 Unknown [id number] 2..840.1.432559.3.579.2.125 1952 Unknown [id number] 2.16.840.1.709218.3.579.2.125 1952 Unknown [id number] 2.16.840.1.709189.3.579.2.1259 1952 Unknown [id number] 2.16.840.1.687181.3.579.2.1259 1952 Unknown [id number] 2.16.840.1.488141.3.579.2.125 1952 Unknown [id number] 2.16.840.1.839877.3.579.2.125 1952 Unknown [id number] 2.16.840.1.398243.3.579.2.125 1952 Unknown [id number] 2.16.840.1.067709.3.579.2.1259 1952 Unknown [id number] 2.16.840.1.919962.3.579.2.1259 Unknown [employer] Unknown O [id number] Unknown [id number] 2.16.840.1.890842.3.579.2.531 Unknown [id number] 2.16.840.1.724168.3.579.2.531 Unknown [id number] 2..840.1.943196.3.579.2.531 Social History Date Type Detail Facility Start: 11-14-2020 End: 12-17-2022 Tobacco smoking status Never smoked tobacco (finding) [facility] Other Start: 01-01-2024 End: 03-08-2024 Sex Assigned At Male [facility] Other Start: 01-01-2024 End: 03-08-2024 Daily caffeine consumption Daily caffeine consumption [facility] Work Phone: Comment on above: quit as a teen; Start: 06-16-2019 End: 06-16-2019 Tobacco smoking status NHIS Ex-smoker (finding) [facility] Start: 1950 Sex Assigned At Male F [facility] Start: 12-17-2022 Tobacco use and exposure Smokeless tobacco non-user [facility] Start: 01-01-2024 End: 03-08-2024 Alcoholic beverage intake Lifetime non-drinker (finding) [facility] Start: 06-12-2023 Alcohol Comment caffeine intak e: 1-2 cups per day [facility] Start: 1950 Sex assigned at Not on file [facility] NEGATED: Highlighted rowStart: NINF History of tobacco use Passive smoker [facility] Medical Equipment Procedure Code Equipment Code Equipment Origin al Text Equipment Identifier Dates Fusion, spine, lumbar, XLIF STRATOFUSE DBM 5CC FDA Start: 06-16-2019 Fusion, spine, lumbar, XLIF Orthopaedic bone screw, non-bioabsorbable, non-sterile [id number] FDA Start: 06-16-2019 Fusion, spine, lumbar, XLIF Bone-screw internal spinal fixation system, non-sterile [id number] FDA Start: 06-16-2019 Fusion, spine, lumbar, XLIF STRATOFUSE DBM 5CC FDA Start: 06-16-2019 Fusion, spine, lumbar, XLIF Spinal fusion graft kit [id number] FDA Start: 06-16-2019 Fusion, spine, lumbar, XLIF Polymeric spinal fusion cage, sterile [id number] FDA Start: 06-16-2019 Fusion, spine, lumbar, XLIF Bone-screw internal spinal fixation system, non-sterile [id number] FDA Start: 06-16-2019 Fusion, spine, lumbar, XLIF STRATOFUSE DBM 5CC FDA Start: 06-16-2019 Fusion, spine, lumbar, XLIF STRATOFUSE DBM 5CC FDA Start: 06-16-2019 Fusion, spine, lumbar, XLIF STRATOFUSE DBM 5CC FDA Start: 06-16-2019 Fusion, spine, lumbar, XLIF STRATOFUSE DBM 5CC FDA Start: 06-16-2019 Fusion, spine, lumbar, XLIF STRATOFUSE DBM 5CC FDA Start: 06-16-2019 Fusion, spine, lumbar, XLIF STRATOFUSE DBM 5CC FDA Start: 06-16-2019 Fusion, spine, lumbar, XLIF STRATOFUSE DBM 5CC FDA Start: 06-16-2019 Fusion, spine, lumbar, XLIF STRATOFUSE DBM 5CC FDA Start: 06-16-2019 Fusion, spine, lumbar, XLIF STRATOFUSE DBM 5CC FDA Start: 06-16-2019 Fusion, spine, lumbar, XLIF STRATOFUSE DBM 5CC FDA Start: 06-16-2019 Fusion, spine, lumbar, XLIF STRATOFUSE DBM 5CC FDA Start: 06-16-2019 Fusion, spine, lumbar, XLIF STRATOFUSE DBM 5CC FDA Start: 06-16-2019 Fusion, spine, lumbar, XLIF STRATOFUSE DBM 5CC FDA Start: 06-16-2019 Fusion, spine, lumbar, XLIF STRATOFUSE DBM 5CC FDA Start: 06-16-2019 Fusion, spine, lumbar, XLIF STRATOFUSE DBM 5CC FDA Start: 06-16-2019 Fusion, spine, lumbar, XLIF STRATOFUSE DBM 5CC FDA Start: 06-16-2019 Fusion, spine, lumbar, XLIF STRATOFUSE DBM 5CC FDA Start: 06-16-2019 Fusion, spine, lumbar, XLIF STRATOFUSE DBM 5CC FDA Start: 06-16-2019 KNEE TOTAL ARTHROPLASTY Drew Dacosta DO 12/03/21 Non Biological Knee L [id number] FDA Start: 12-03-2021 Start: 06-17-2022 Syringe With Nee dle (Matches Fashion Luer Lock Syr-Needle) 3 mL 22 gauge x 1 syringe Start: 12-10-2023 End: 12-10-2023 Goals Date Patient Goal Desired Activity /State Functional Status Date Assessment Result Facility 02-17-2023 Functional Status N/A [facility] 12-25-2021 Functional Status N/A [facility] 11-13-2021 Functional Status No [facility] Clinical Notes 03-01-2021 to 04-29-2024 Ismael Reyna DPM - 04/29/2024 9:20 AM Yuliya Liu APRN-AHSAN - 03/08/2024 1:50 PM No Reyna DPM - 02/19/2024 9:20 AM Александр Dacosta DO - 01/01/2024 11:00 AM EDT Note Date & Type Note Facility 04-29-2024 History of Present illness Narrative Patient: Isiah Paez : 1950 PCP: Kaveh Tran DO SUBJECTIVE This is a 73 y.o. male that presents today with a CC of elongated, thick nails. Pt states nails have been elongated and thick for many years and cause pain with ambulation in shoegear. Pt has tried previous treatment with minimal relief. Pt presents today for nail care and treatment. Patient is DM2 Allergies: No Known Allergies Past Medical History: Past Medical History: Diagnosis Date Actinic keratosis Basal cell carcinoma Diabetes mellitus, type 2 (CMS/HCC) Gout History of left knee replacement Hypertension (CMS/HCC) Lumbar spinal stenosis Medications: Current Outpatient Medications: allopurinol (Zyloprim) 300 MG tablet, Take 300 mg by mouth in the morning., Disp: , Rfl: amLODIPine (Norvasc) 5 MG tablet, Every morning, Disp: , Rfl: cephalexin (Keflex) 500 MG capsule, Take all 4 capsules one hour before the procedure., Disp: 4 capsule, Rfl: 0 cyanocobalamin (Vitamin B-12) 1000 MCG/ML injection, , Disp: , Rfl: cyclobenzaprine (Flexeril) 10 MG tablet, Daily at bedtime, Disp: , Rfl: gabapentin (Neurontin) 600 MG tablet, Take 1 tablet (600 mg) by mouth at bedtime, Disp: 90 tablet, Rfl: 0 meloxicam (Mobic) 15 MG tablet, Daily, Disp: , Rfl: metFORMIN XR (Glucophage-XR) 500 MG 24 hr tablet, 1 (one) time each day at the same time., Disp: , Rfl: olmesartan-hydroCHLOROthiazide (BENIcar HCT) 20-12.5 MG tablet, , Disp: , Rfl: predniSONE (Deltasone) 5 MG tablet, TAKE 1 - 2 TABLETS BY MOUTH EVERYDAY NEEDED, Disp: , Rfl: rOPINIRole (Requip) 0.5 MG tablet, TAKE 1 TABLET BY MOUTH 1 TO 3 HOURS BEFORE BEDTIME (TAKE IN ADDITION TO 1MG), Disp: 90 tablet, Rfl: 3 rOPINIRole (Requip) 1 MG tablet, TAKE 1 TABLET EVERY DAY (TAKE IN ADDITION TO 0.5MG), Disp: 90 tablet, Rfl: 3 simvastatin (Zocor) 20 MG tablet, 1 (one) time each day at the same time., Disp: , Rfl: Social History: Social History Socioeconomic History Marital status: Spouse name: Not on file Number of children: Not on file Years of education: Not on file Highest education level: Not on file Occupational History Not on file Tobacco Use Smoking status: Never Passive exposure: Never Smokeless tobacco: Never Vaping Use Vaping status: Never Used Substance and Sexual Activity Alcohol use: Never Comment: caffeine intake: 1-2 cups per day Drug use: Never Sexual activity: Not on file Other Topics Concern Not on file Social History Narrative Not on file Social Drivers of Health Financial Resource Strain: Not on file Food Insecurity: Not on file Transportation Needs: Not on file Physical Activity: Not on file Stress: Not on file Social Connections: Not on file Intimate Partner Violence: Not on file Housing Stability: Not on file ROS: General: denies fever, chills, fatigue, malaise OBJECTIVE LE EXAM: DERM: Elongated thick yellow crumbly nails digits 1 through 10. Negative hair growth with thin shiny atrophic skin bilaterally VASC: Positive DP and negative PT pedal pulses NEURO: 5.07 Chester Beni monofilament test diminished to digits and forefoot bilaterally 125Hz tuning fork diminished to 1st MPJ bilaterally ORTHO: Positive pain on palpation to nails 1 through 10 Slight flexion deformities digits 2-5 b/l ASSESSMENT 1. Type II diabetes mellitus with neurological manifestations (CMS/HCC) 2. Pain due to onychomycosis of toenails of both feet 3. Acquired deformity of left toe 4. Acquired deformity of right toe PLAN Discussed proper foot care with patient today. Debride nails in length and thickness digits 1 through 10 Patient educated today on proper diabetic foot care including monitoring feet daily for any signs of infection openings in the skin or irregularities to both feet. Patient had a diabetic neurological exam today to both their feet and discussed proper shoe gear. Ismael Reyna DPM documented in this encounter [facility] 03-08-2024 History of Present illness Narrative Images from the original note were not included. Skin Check Location: Patient requests a full body skin examination Dermatologic history: history of Actinic Keratosis, history of Basal Cell Carcinoma Last visit: 1 year ago Lesions: Location: Right frontal scalp, left ear Duration: months Quality: itchy Modifying factors: aggravated by picking Associated symptoms: rough Treatments: none All pertinent medical history, medications, and allergies were reviewed. General Exam: alert, oriented to person, place, and time, normal affect, well appearing uses a cane Unaccompanied Scalp, Examined , exam limited by hair Right leg Examined Head, Face Examined Left leg Examined Neck Examined Right foot Examined Chest Examined Left foot Examined Back Examined Buttocks Examined Abdomen Examined Digits,nails: Examined Right arm Examined Left arm Examined Lymphatics: Not examined Hands Examined 1. Melanocytic nevus of trunk Scattered benign appearing, regular brown to light brown melanocytic papules and macules with similar morphology Counseled regarding these benign growths. Rarely, a nevus can develop into malignant melanoma, so any changing nevi should be promptly re-evaluated. 2. Lentigines (3) Head - Anterior (Face), Left Shoulder - Posterior, Right Shoulder - Posterior Scattered martinez macules in sun-exposed areas. The patient was informed that lentigines are benign pigmented lesions that occur on sun-exposed and sun-damaged skin. No treatment is necessary. Recommended regular use of broad spectrum sunscreen SPF 30 or higher 3. Other seborrheic dermatitis Face, Left Ear, Right Ear Erythema and scale. Discussed that seborrheic dermatitis is a chronic condition that can be controlled but not cured Continue Hydrocortisone cream BID prn for flares. Notify office if flaring despite treatment. 4. History of basal cell carcinoma Left Lower Back No evidence of recurrence at BCC scar. The patient was counseled that scars from excisional sites of nonmelanoma skin cancers should be monitored closely for recurrence. The patient was instructed to contact the office for any new, changing, or symptomatic moles. The patient was also instructed to contact the office for any new lesions that develop within or around the previous surgery scar. 5. Inflamed seborrheic keratosis (2) Left Inferior Anuel of Antihelix, Mid Frontal Scalp Inflamed seborrheic keratoses: brown stuck on verrucous scaly papule, symptomatic The patient was informed that symptomatic seborrheic keratoses are benign growths that become inflamed, itchy, tender, traumatized, caught on clothing, or bleed. Symptomatic lesions can be treated with cryotherapy or curretage. Thicker lesions treated with cryotherapy may require more than one treatment. The patient was instructed to notify the office if abnormal redness or tenderness develops at the treatment site. Cryotherapy today, see procedure note. Diagnosis: Inflamed seborrheic keratosis Indication: Inflamed Consent: Verbal consent was obtained and risks were discussed, including, but not limited to risks of scarring, darker or webfocus developer pigmentary changes, recurrence, incomplete removal and infection. Method: Liquid nitrogen was used to treat the lesion(s) with two 5-10 second freeze-thaw cycles Number of lesions treated: 2 Post-procedure instructions: Instructions were given orally and in writing. The office will be contacted if the lesion fails to resolve despite treatment, or if a side effect develops such as abnormal crusting, scabbing, redness or tenderness Cryotherapy, skin lesion - Left Inferior Anuel of Antihelix, Mid Frontal Scalp 6. Neoplasm of unspecified behavior of bone, soft tissue, and skin Right Upper Back Irregularly pigmented brown macule Lesion biopsy Type of biopsy: tangential Informed consent: discussed and consent obtained Informed consent comment: The risks and benefits of the biopsy were discussed. Risks include but are not limited to bleeding, infection, scarring, pain, and nerve damage. An opportunity to ask questions prior to the procedure was permitted and all questions were answered. Patient was prepped and draped in usual sterile fashion: area cleansed with alcohol. Anesthesia: the lesion was anesthetized in a standard fashion Anesthetic: 1% lidocaine w/ epinephrine 1-100,000 buffered w/ 8.4% NaHCO3 Instrument used: DermaBlade Hemostasis achieved with: electrodesiccation Outcome: patient tolerated procedure well Outcome comment: The specimen was placed in a prelabeled formalin container to be sent for pathology Post-procedure details: sterile dressing applied and wound care instructions given Post-procedure details comment: Emphasized need to contact clinic for any signs of infection, uncontrollable bleeding, or complications. Dressing type: bandage Additional details: Photo taken yes Amount of lidocaine used: 0.5 cc Specimen A - Dermatopathology exam Differential Diagnosis: Dysplastic nevus vs other Check Margins: No Size of lesion: 0.4 x 0.4 cm Next Visit: 1 year documented in this encounter [facility] 02-19-2024 History of Present illness Narrative Patient: Isiah Paez : 1950 PCP: Kaveh Tran DO SUBJECTIVE This is a 73 y.o. male that presents today with a CC of elongated, thick nails. Pt states nails have been elongated and thick for many years and cause pain with ambulation in shoegear. Pt has tried previous treatment with minimal relief. Pt presents today for nail care and treatment. Patient is DM2 Allergies: No Known Allergies Past Medical History: Past Medical History: Diagnosis Date Basal cell carcinoma Diabetes mellitus, type 2 (CMS/HCC) Gout History of left knee replacement Hypertension (CMS/HCC) Lumbar spinal stenosis Medications: Current Outpatient Medications: allopurinol (Zyloprim) 300 MG tablet, Take 300 mg by mouth in the morning., Disp: , Rfl: amLODIPine (Norvasc) 5 MG tablet, Every morning, Disp: , Rfl: cyanocobalamin (Vitamin B-12) 1000 MCG/ML injection, , Disp: , Rfl: cyclobenzaprine (Flexeril) 10 MG tablet, Daily at bedtime, Disp: , Rfl: gabapentin (Neurontin) 600 MG tablet, Take 1 tablet (600 mg) by mouth at bedtime, Disp: 30 tablet, Rfl: 2 meloxicam (Mobic) 15 MG tablet, Daily, Disp: , Rfl: metFORMIN XR (Glucophage-XR) 500 MG 24 hr tablet, 1 (one) time each day at the same time., Disp: , Rfl: olmesartan-hydroCHLOROthiazide (BENIcar HCT) 20-12.5 MG tablet, , Disp: , Rfl: predniSONE (Deltasone) 5 MG tablet, TAKE 1 - 2 TABLETS BY MOUTH EVERYDAY NEEDED, Disp: , Rfl: rOPINIRole (Requip) 0.5 MG tablet, TAKE 1 TABLET BY MOUTH 1 TO 3 HOURS BEFORE BEDTIME (TAKE IN ADDITION TO 1MG), Disp: 90 tablet, Rfl: 3 rOPINIRole (Requip) 1 MG tablet, TAKE 1 TABLET EVERY DAY (TAKE IN ADDITION TO 0.5MG), Disp: 90 tablet, Rfl: 3 simvastatin (Zocor) 20 MG tablet, 1 (one) time each day at the same time., Disp: , Rfl: Social History: Social History Socioeconomic History Marital status: Spouse name: Not on file Number of children: Not on file Years of education: Not on file Highest education level: Not on file Occupational History Not on file Tobacco Use Smoking status: Never Passive exposure: Never Smokeless tobacco: Never Vaping Use Vaping status: Never Used Substance and Sexual Activity Alcohol use: Never Comment: caffeine intake: 1-2 cups per day Drug use: Never Sexual activity: Not on file Other Topics Concern Not on file Social History Narrative Not on file Social Drivers of Health Financial Resource Strain: Not on file Food Insecurity: Not on file Transportation Needs: Not on file Physical Activity: Not on file Stress: Not on file Social Connections: Not on file Intimate Partner Violence: Not on file Housing Stability: Not on file ROS: General: denies fever, chills, fatigue, malaise OBJECTIVE LE EXAM: DERM: Elongated thick yellow crumbly nails digits 1 through 10. Negative hair growth with thin shiny atrophic skin bilaterally VASC: Positive DP and negative PT pedal pulses NEURO: 5.07 Chester Beni monofilament test diminished to digits and forefoot bilaterally 125Hz tuning fork diminished to 1st MPJ bilaterally ORTHO: Positive pain on palpation to nails 1 through 10 Slight flexion deformities digits 2-5 b/l ASSESSMENT 1. Type II diabetes mellitus with neurological manifestations (CMS/HCC) 2. Pain due to onychomycosis of toenails of both feet 3. Acquired deformity of left toe 4. Acquired deformity of right toe PLAN Discussed proper foot care with patient today. Debride nails in length and thickness digits 1 through 10 Patient educated today on proper diabetic foot care including monitoring feet daily for any signs of infection openings in the skin or irregularities to both feet. Patient had a diabetic neurological exam today to both their feet and discussed proper shoe gear. Ismael Reyna DPM documented in this encounter [facility] 01-01-2024 History of Present illness Narrative Post op left TKA annual visit: The patient is seen and evaluated for annual total knee arthroplasty visit. Did well with the hospital stay. No anesthesia problems reported. Happy with the care provided by staff, physical therapy and our office. Pain is appropriately controlled. Denies chest pain or shortness of breath or palpitations. Continues to be consistent and diligent with home exercise program as well as physical therapy modalities. Physical therapy reports are reviewed. Doing functional rehab in [place] for foot neuropathy. Physical Exam: The total knee is clean, dry and intact. Mild swelling as expected. Has a stable arc of motion without mechanical symptoms. No instability of the prosthesis. No rash, infection or DVT. The calf is supple. Gait is assisted with stiffness with mild antalgic component. Image Results: Xrays taken in the office today saved to the permanent record, AP, sunrise and lateral weightbearing films, show stable position and alignment of the TKA prosthesis. No sign of loosening, fracture or infection. Assessment: S/P left total knee arthroplasty-annual post-operative visit Treatment Plan: The nature of the findings were discussed at length. Continuance of regular exercise, weight management and fall precautions reviewed. residential antibiotic prophylaxis for dental or invasive work were reviewed. Numerous questions were answered. Follow-up in 1 year for repeat xray and exam, sooner if concerned. The patient is discharged in stable condition. documented in this encounter [facility] 12-11-2023 History of Present illness Narrative Patient: Isiah Paez : 1950 PCP: Kaveh Tran DO SUBJECTIVE This is a 73 y.o. male that presents today with a CC of elongated, thick nails. Pt states nails have been elongated and thick for many years and cause pain with ambulation in shoegear. Pt has tried previous treatment with minimal relief. Pt presents today for nail care and treatment. Patient is DM2 Allergies: No Known Allergies Past Medical History: Past Medical History: Diagnosis Date Basal cell carcinoma Diabetes mellitus, type 2 (CMS/HCC) Gout History of left knee replacement Hypertension (CMS/HCC) Lumbar spinal stenosis Medications: Current Outpatient Medications: allopurinol (Zyloprim) 300 MG tablet, Take 300 mg by mouth in the morning., Disp: , Rfl: cyanocobalamin (Vitamin B-12) 1000 MCG/ML injection, , Disp: , Rfl: gabapentin (Neurontin) 600 MG tablet, Take 1 tablet (600 mg) by mouth at bedtime, Disp: 30 tablet, Rfl: 2 metFORMIN XR (Glucophage-XR) 500 MG 24 hr tablet, 1 (one) time each day at the same time., Disp: , Rfl: olmesartan-hydroCHLOROthiazide (BENIcar HCT) 20-12.5 MG tablet, , Disp: , Rfl: predniSONE (Deltasone) 5 MG tablet, TAKE 1 - 2 TABLETS BY MOUTH EVERYDAY NEEDED, Disp: , Rfl: rOPINIRole (Requip) 0.5 MG tablet, , Disp: , Rfl: rOPINIRole (Requip) 1 MG tablet, , Disp: , Rfl: simvastatin (Zocor) 20 MG tablet, 1 (one) time each day at the same time., Disp: , Rfl: Social History: Social History Socioeconomic History Marital status: Spouse name: Not on file Number of children: Not on file Years of education: Not on file Highest education level: Not on file Occupational History Not on file Tobacco Use Smoking status: Never Passive exposure: Never Smokeless tobacco: Never Vaping Use Vaping status: Never Used Substance and Sexual Activity Alcohol use: Never Comment: caffeine intake: 1-2 cups per day Drug use: Never Sexual activity: Not on file Other Topics Concern Not on file Social History Narrative Not on file Social Determinants of Health Financial Resource Strain: Not on file Food Insecurity: Not on file Transportation Needs: Not on file Physical Activity: Not on file Stress: Not on file Social Connections: Not on file Intimate Partner Violence: Not on file Housing Stability: Not on file ROS: General: denies fever, chills, fatigue, malaise OBJECTIVE LE EXAM: DERM: Elongated thick yellow crumbly nails digits 1 through 10. Negative hair growth with thin shiny atrophic skin bilaterally VASC: Positive DP and negative PT pedal pulses NEURO: 5.07 Chester Beni monofilament test diminished to digits and forefoot bilaterally 125Hz tuning fork diminished to 1st MPJ bilaterally ORTHO: Positive pain on palpation to nails 1 through 10 Slight flexion deformities digits 2-5 b/l ASSESSMENT 1. Type II diabetes mellitus with neurological manifestations (CMS/HCC) 2. Onychomycosis 3. Toe pain, bilateral PLAN Discussed proper foot care with patient today. Debride nails in length and thickness digits 1 through 10 Patient educated today on proper diabetic foot care including monitoring feet daily for any signs of infection openings in the skin or irregularities to both feet. Patient had a diabetic neurological exam today to both their feet and discussed proper shoe gear. Ismael Reyna DPM documented in this encounter [facility] 09-24-2023 Procedure note [facility] 09-09-2023 Evaluation note Authored September 09, 2023 11:28 am Nurse visit performed by Sierra Nuñez LPN [facility] Work Phone: [phone] Evaluation note* Encounter Date Diagnosis Assessment Notes Treatment Notes Treatment Clinical Notes Mar, Obstructive sleep apnea (ICD-10 - G47.33) Fortunately, the patient is using and benefiting from treatment. Download was reviewed with patient, Current pressure is controlling apnea well, And we will make no changes at this time. A prescription was sent to the [facility] for new supplies throughout the year. He was encouraged to continue to use his machine nightly, throughout the entire night as this does provide clinical benefit. I did review some techniques to help increase compliance regarding issue with putting the mask on when he gets up to use the restroom in the early mornings. He will follow-up in the sleep clinic in 1 year or sooner if problems. Mar, Essential hypertension (ICD-10 - I10) Blood pressure control frequently improves with control of sleep apnea. Reviewed importance of using machine entire night, every night consistently when he is sleeping Mar, Restless leg syndrome (ICD-10 - G25.81) This is well controlled. He is following with his primary neurologist for this. Gets Gabapentin and Requip prescriptions there. Reports it does not interfere with sleep as long as he keeps up with treatment Mar, Other Call if any questions or problems. Patient is advised to work on healthy diet choices and appropriate servings, weight control, regular exercise as directed, and reduce fat intake. Use machine regularly, and keep up with mask changes as needed. Call if problems with mask toleration, increased sleepiness, or poor response to treatment. . [facility] Other 12-01-2023 Evaluation note* Encounter Date Diagnosis Assessment Notes Treatment Notes Treatment Clinical Notes Mar, COVID-19 (ICD-10 - U07.1) [facility] Other 12-01-2023 Evaluation note* Encounter Date Diagnosis Assessment Notes Treatment Notes Treatment Clinical Notes Mar, COVID-19 (ICD-10 - U07.1) Mar, Strep throat (ICD-10 - J02.0) [facility] Other 12-01-2023 Evaluation note* Encounter Date Diagnosis Assessment Notes Treatment Notes Treatment Clinical Notes Mar, Cough, unspecified type (ICD-10 - R05.9) [facility] Other 11-27-2023 Evaluation note* Encounter Date Diagnosis Assessment Notes Treatment Notes Treatment Clinical Notes Feb, Vitamin B 12 deficiency (ICD-10 - E53.8) Feb, Hyperlipidemia (ICD-10 - E78.5) Feb, Vitamin D deficiency (ICD-10 - E55.9) Feb, Type 2 diabetes mellitus with hyperglycemia, without long-term current use of insulin (ICD-10 - E11.65) [facility] Other 11-27-2023 Evaluation note* Encounter Date Diagnosis Assessment Notes Treatment Notes Treatment Clinical Notes Feb, Hyperlipidemia, unspecified hyperlipidemia type (ICD-10 - E78.5) Feb, Type 2 diabetes mellitus with hyperglycemia, without long-term current use of insulin (ICD-10 - E11.65) Feb, Vitamin B 12 deficiency (ICD-10 - E53.8) [facility] Other 10-30-2023 Hospital Discharge instructions Patient Education 02/17/2023 13:26:08 Erectile Dysfunction Erectile Dysfunction Erectile dysfunction (ED) is the inability to get or keep an erection in order to have sexual intercourse. ED is considered a symptom of an underlying disorder and is not considered a disease. ED mayinclude: Inability to get an erection. Lack of enough hardness of the erection to allow penetration. Loss of erection before sex is finished. What are the causes? This condition may be caused by: Physical causes, such as: ?Artery problems. This may include heart disease, high blood pressure, atherosclerosis, and diabetes. ?Hormonal problems, such as low testosterone. ?Obesity. ?Nerve problems. This may include back or pelvic injuries, multiple sclerosis, Parkinson's disease,spinal cord injury, and stroke. Certain medicines, such as: ?Pain relievers. ?Antidepressants. ?Blood pressure medicines and water pills (diuretics). ?Cancer medicines. ?Antihistamines. ?Muscle relaxants. Lifestyle factors, such as: ?Use of drugs such as marijuana, cocaine, or opioids. ?Excessive use of alcohol. ?Smoking. ?Lack of physical activity or exercise. Psychological causes, such as: ?Anxiety or stress. ?Sadness or depression. ?Exhaustion. ?Fear about sexual performance. ?Guilt. What are the signs or symptoms? Symptoms of this condition include: Inability to get an erection. Lack of enough hardness of the erection to allow penetration. Loss of the erection before sex is finished. Sometimes having normal erections, but with frequent unsatisfactory episodes. Low sexual satisfaction in either partner due to erection problems. A curved penis occurring with erection. The curve may cause pain, or the penis may be too curved toallow for intercourse. Never having nighttime or morning erections. How is this diagnosed? This condition is often diagnosed by: Performing a physical exam to find other diseases or specific problems with the penis. Asking you detailed questions about the problem. Doing tests, such as: ?Blood tests to check for diabetes mellitus or high cholesterol, or to measure hormone levels. ?Other tests to check for underlying health conditions. ?An ultrasound exam to check for scarring. ?A test to check blood flow to the penis. Doing a sleep study at home to measure nighttime erections. How is this treated? This condition may be treated by: Medicines, such as: ?Medicine taken by mouth to help you achieve an erection (oral medicine). ?Hormone replacement therapy to replace low testosterone levels. ?Medicine that is injected into the penis. Your health care provider may instruct you how to give yourself these injections at home. ?Medicine that is delivered with a short applicator tube. The tube is inserted into the opening at the tip of the penis, which is the opening of the urethra. A tiny pellet of medicine is put in the urethra. The pellet dissolves and enhances erectile function. This is also called MUSE (medicated urethral system for erections) therapy. Vacuum pump. This is a pump with a ring on it. The pump and ring are placed on the penis and used to create pressure that helps the penis become erect. Penile implant surgery. In this procedure, you may receive: ?An inflatable implant. This consists of cylinders, a pump, and a reservoir. The cylinders can be inflated with a fluid that helps to create an erection, and they can be deflated after intercourse. ?A semi-rigid implant. This consists of two silicone rubber rods. The rods provide some rigidity. They are also flexible, so the penis can both curve downward in its normal position and become straight for sexual intercourse. Blood vessel surgery to improve blood flow to the penis. During this procedure, a blood vessel froma different part of the body is placed into the penis to allow blood to flow around (bypass) damaged or blocked blood vessels. Lifestyle changes, such as exercising more, losing weight, and quitting smoking. Follow these instructions at home: Medicines Take bduk-zaf-wmendlw and prescription medicines only as told by your health care provider. Do not increase the dosage without first discussing it with your health care provider. If you are using self-injections, do injections as directed by your health care provider. Make sureyou avoid any veins that are on the surface of the penis. After giving an injection, apply pressureto the injection site for 5 minutes. Talk to your health care provider about how to prevent headaches while taking ED medicines. These medicines may cause a sudden headache due to the increase in blood flow in your body. General instructions Exercise regularly, as directed by your health care provider. Work with your health care provider to lose weight, if needed. Do not use any products that contain nicotine or tobacco. These products include cigarettes, chewing tobacco, and vaping devices, such as e-cigarettes. If you need help quitting, ask your health careprovider. Before using a vacuum pump, read the instructions that come with the pump and discuss any questionswith your health care provider. Keep all follow-up visits. This is important. Contact a health care provider if: You feel nauseous. You are vomiting. You get sudden headaches while taking ED medicines. You have any concerns about your sexual health. Get help right away if: You are taking oral or injectable medicines and you have an erection that lasts longer than 4 hours. If your health care provider is unavailable, go to the nearest emergency room for evaluation. An erection that lasts much longer than 4 hours can result in permanent damage to your penis. You have severe pain in your groin or abdomen. You develop redness or severe swelling of your penis. You have redness spreading at your groin or lower abdomen. You are unable to urinate. You experience chest pain or a rapid heartbeat (palpitations) after taking oral medicines. These symptoms may represent a serious problem that is an emergency. Do not wait to see if the symptoms will go away. Get medical help right away. Call your local emergency services (911 in the [place] Do not drive yourself to the hospital. Summary Erectile dysfunction (ED) is the inability to get or keep an erection during sexual intercourse. This condition is diagnosed based on a physical exam, your symptoms, and tests to determine the cause. Treatment varies depending on the cause and may include medicines, hormone therapy, surgery, or a vacuum pump. You may need follow-up visits to make sure that you are using your medicines or devices correctly. Get help right away if you are taking or injecting medicines and you have an erection that lasts longer than 4 hours. This information is not intended to replace advice given to you by your health care provider. Make sure you discuss any questions you have with your health care provider. Document Revised: 07/04/2021 Document Reviewed: 07/04/2021 [employer] Patient Education 2022 [employer]. Follow Up Care 01/24/2023 13:06:02 With:TOÑITO VIGIL, Anthony Krause, URL Address: [facility] [address], [place] [phone] [phone] When: Unknown [facility] 06-01-2023 Evaluation note* Encounter Date Diagnosis Assessment Notes Treatment Notes Treatment Clinical Notes Sep, Vitamin B 12 deficiency (ICD-10 - E53.8) [facility] Other 06-01-2023 Evaluation note* Encounter Date Diagnosis Assessment Notes Treatment Notes Treatment Clinical Notes Sep, Vitamin B 12 deficiency (ICD-10 - E53.8) Pt is to continue with the above medication and we will continue to monitor. Sep, Gout, unspecified cause, unspecified chronicity, unspecified site (ICD-10 - M10.9) Uric acid level appears to be well controlled at this time.The patient encouraged to continue following with Loading Unit Operator as scheduled. Sep, Type 2 diabetes mellitus with other specified complication, without long-term current use of insulin (ICD-10 - E11.69) Glucose is 114 with a hgb a1c of 5.9. Pt is to continue with the above medication and continue watching their diet and increase their exercise regimen. Sep, Hypertension (ICD-10 - I10) Sep, Hyperlipidemia (ICD-10 - E78.5) Cholesterol is stable upon review of blood work results . Liver enzymes , kidney and thyroid functions are within normal range. Pt is to continue with the above medication and continue watching their diet and increase their exercise regimen. [facility] Other 03-16-2023 Evaluation note* Encounter Date Diagnosis Assessment Notes Treatment Notes Treatment Clinical Notes Jun, History of lumbar fusion (ICD-10 - Z98.1) Jun, Peripheral polyneuropathy (ICD-10 - G62.9) I independently reviewed the MRI of the lumbar spine and the report; also independently reviewed the EMG and report. This patient has a polyneuropathy. His balance is very poor, he definitely has neuropathy based on clinical exam. He has had a previous lumbar fusion the areas adjacent to the fusion are clear when independently reviewing the MRI. The patient from a surgical perspective does not have options with surgery; this was discussed with the family. I believe all understand and agree. Much of this is a motivational problem for the patient. Jun, Impairment of balance (ICD-10 - R26.89) [facility] 02-27-2023 Evaluation note* Encounter Date Diagnosis Assessment Notes Treatment Notes Treatment Clinical Notes May, Vitamin B 12 deficiency (ICD-10 - E53.8) Patient has been taking b12 through his supplements but levels continues to be low. Therefore, I recommend the patient start monthly cyanocobalamin. Patient is agreeable. The is a registered nurse and will give the patient the monthly injections. We will recheck blood work again in the near future. May, Gout, unspecified cause, unspecified chronicity, unspecified site (ICD-10 - M10.9) Patient is to continue to follow with Dr. Devi as scheduled. May, Type 2 diabetes mellitus with other specified complication, without long-term current use of insulin (ICD-10 - E11.69) Most recent A1C reading of 6.4. Patient would like to start checking sugars at home. I will provide a prescription for the glucometer. Patient is also interested in seeing a diabetic specialist, referral initiated. May, Polyneuropathy (ICD-10 - G62.9) has reported the patient improving since starting physcial therapy. Patient will also be starting aquatherapy soon as well. May, Hyperlipidemia (ICD-10 - E78.5) Blood work ordered for next visit. [facility] Other 12-13-2022 Evaluation note* Encounter Date Diagnosis Assessment Notes Treatment Notes Treatment Clinical Notes Mar, Obstructive sleep apnea (ICD-10 - G47.33) Fortunately the patient is using and benefiting from treatment. I encouraged him to use the device every night, all night. I encouraged him to call if any problems arise. Medical effects of suboptimal use reviewed. Recheck 1 year, call sooner if problems Mar, Essential hypertension (ICD-10 - I10) Blood pressure control frequently improves with control of sleep apnea. Reviewed importance of using machine entire night, every night consistently when he is sleeping Mar, Restless leg syndrome (ICD-10 - G25.81) This is well controlled. He is following with his primary neurologist for this. Gets prescriptions there. Reports it does not interfere with sleep as long as he keeps up with treatment Mar, Other Call if any questions or problems. Patient is advised to work on healthy diet choices and appropriate servings, weight control, regular exercise as directed, and reduce fat intake. Use machine regularly, and keep up with mask changes as needed. Call if problems with mask toleration, increased sleepiness, or poor response to treatment. . [facility] Other 11-28-2022 Evaluation note* Encounter Date Diagnosis Assessment Notes Treatment Notes Treatment Clinical Notes Feb, Gout, unspecified cause, unspecified chronicity, unspecified site (ICD-10 - M10.9) [facility] Other 09-06-2022 Hospital Discharge instructions Patient Education 12/25/2021 15:13:32 Cellulitis, Adult Cellulitis, Adult Cellulitis is a skin infection. The infected area is usually warm, red, swollen, and tender. This condition occurs most often in the arms and lower legs. The infection can travel to the muscles, blood, and underlying tissue and become serious. It is very important to get treated for this condition. What are the causes? Cellulitis is caused by bacteria. The bacteria enter through a break in the skin, such as a cut, burn, insect bite, open sore, or crack. What increases the risk? This condition is more likely to occur in people who: Have a weak body defense system (immune system). Have open wounds on the skin, such as cuts, freedman, bites, and scrapes. Bacteria can enter the body through these open wounds. Are older than 60 years of age. Have diabetes. Have a type of long-lasting (chronic) liver disease (cirrhosis) or kidney disease. Are obese. Have a skin condition such as: ?Itchy rash (eczema). ?Slow movement of blood in the veins (venous stasis). ?Fluid buildup below the skin (edema). Have had radiation therapy. Use IV drugs. What are the signs or symptoms? Symptoms of this condition include: Redness, streaking, or spotting on the skin. Swollen area of the skin. Tenderness or pain when an area of the skin is touched. Warm skin. A fever. Chills. Blisters. How is this diagnosed? This condition is diagnosed based on a medical history and physical exam. You may also have tests, including: Blood tests. Imaging tests. How is this treated? Treatment for this condition may include: Medicines, such as antibiotic medicines or medicines to treat allergies (antihistamines). Supportive care, such as rest and application of cold or warm cloths (compresses) to the skin. Hospital care, if the condition is severe. The infection usually starts to get better within 1 2 days of treatment. Follow these instructions at home: Medicines Take rmuq-abk-wsztfwq and prescription medicines only as told by your health care provider. If you were prescribed an antibiotic medicine, take it as told by your health care provider. Do notstop taking the antibiotic even if you start to feel better. General instructions Drink enough fluid to keep your urine pale yellow. Do not touch or rub the infected area. Raise (elevate) the infected area above the level of your heart while you are sitting or lying down. Apply warm or cold compresses to the affected area as told by your health care provider. Keep all follow-up visits as told by your health care provider. This is important. These visits letyour health care provider make sure a more serious infection is not developing. Contact a health care provider if: You have a fever. Your symptoms do not begin to improve within 1 2 days of starting treatment. Your bone or joint underneath the infected area becomes painful after the skin has healed. Your infection returns in the same area or another area. You notice a swollen bump in the infected area. You develop new symptoms. You have a general ill feeling (malaise) with muscle aches and pains. Get help right away if: Your symptoms get worse. You feel very sleepy. You develop vomiting or diarrhea that persists. You notice red streaks coming from the infected area. Your red area gets larger or turns dark in color. These symptoms may represent a serious problem that is an emergency. Do not wait to see if the symptoms will go away. Get medical help right away. Call your local emergency services (911 in the [place] Do not drive yourself to the hospital. Summary Cellulitis is a skin infection. This condition occurs most often in the arms and lower legs. Treatment for this condition may include medicines, such as antibiotic medicines or antihistamines. Take sduk-jey-stskbmh and prescription medicines only as told by your health care provider. If you were prescribed an antibiotic medicine, do not stop taking the antibiotic even if you start to feel better. Contact a health care provider if your symptoms do not begin to improve within 1 2 days of startingtreatment or your symptoms get worse. Keep all follow-up visits as told by your health care provider. This is important. These visits letyour health care provider make sure that a more serious infection is not developing. This information is not intended to replace advice given to you by your health care provider. Make sure you discuss any questions you have with your health care provider. Document Released: 01/15/2006 Document Revised: 08/27/2018 Document Reviewed: 08/27/2018 [employer] Patient Education 2020 [employer] Follow Up Care 12/25/2021 13:03:01 With:Drew Dacosta Address: [address] [place] [phone] Business (1) When:12/28/2021 15:04:16 With:KAVEH TRAN Address: [address] [place] [phone] Business (1) When:12/28/2021 15:04:12 [facility]08-15-2022 Hospital Discharge instructions Patient Education 12/03/2021 15:46:22 Post Op Patient Instructions - FT (CUSTOM) 12/03/2021 15:46:22 Knee Cryocuff Patient Instructions - FT (CUSTOM) 12/03/2021 15:46:22 How to Use an Incentive Spirometer How To Use an Incentive Spirometer An incentive spirometer is a tool that measures how well you are filling your lungs with each breath. Learning to take long, deep breaths using this tool can help you keep your lungs clear and active. This may help to reverse or lessen your chance of developing breathing (pulmonary) problems, especially infection. You may be asked to use a spirometer: After a surgery. If you have a lung problem or a history of smoking. After a long period of time when you have been unable to move or be active. If the spirometer includes an indicator to show the highest number that you have reached, your health care provider or respiratory therapist will help you set a goal. Keep a list (log) of your progress as told by your health care provider. What are the risks? Breathing too quickly may cause dizziness or cause you to pass out. Take your time so you do not get dizzy or light-headed. If you are in pain, you may need to take pain medicine before doing incentive spirometry. It is harder to take a deep breath if you are having pain. How to use your incentive spirometer 1.Sit up on the edge of your bed or on a chair. 2.Hold the incentive spirometer so that it is in an upright position. 3.Before you use the spirometer, breathe out normally. 4.Place the mouthpiece in your mouth. Make sure your lips are closed tightly around it. 5.Breathe in slowly and as deeply as you can through your mouth, causing the piston or the ball to rise toward the top of the chamber. 6.Hold your breath for 3 5 seconds, or for as long as possible. If the spirometer includes a continuous improvement coach indicator, use this to guide you in breathing. Slow down your breathing if the indicator goes above the marked areas. 7.Remove the mouthpiece from your mouth and breathe out normally. The piston or ball will return tothe bottom of the chamber. 8.Rest for a few seconds, then repeat the steps 10 or more times. Take your time and take a few normal breaths between deep breaths so that you do not get dizzy or light-headed. Do this every 1 2 hours when you are awake. 9.If the spirometer includes a goal marker to show the highest number you have reached (best effort), use this as a goal to work toward during each repetition. 10.After each set of 10 deep breaths, cough a few times. This will help to make sure that your lungs are clear. If you have an incision on your chest or abdomen from surgery, place a pillow or a rolled-up towel firmly against the incision when you cough. This can help to reduce pain from coughing. General tips When you become able to get out of bed, walk around often and continue to cough to help clear your lungs. Keep using the incentive spirometer until your health care provider says it is okay to stop using it. If you have been in the hospital, you may be told to keep using the spirometer at home. Contact a health care provider if: You are having difficulty using the spirometer. You have trouble using the spirometer as often as instructed. Your pain medicine is not giving enough relief for you to use the spirometer as told. You have a fever. You develop shortness of breath. Get help right away if: You develop a cough with bloody mucus from the lungs (bloody sputum). You have fluid or blood coming from an incision site after you cough. Summary An incentive spirometer is a tool that can help you learn to take long, deep breaths to keep your lungs clear and active. You may be asked to use a spirometer after a surgery, if you have a lung problem or a history of smoking, or if you have been inactive for a long period of time. Use your incentive spirometer as instructed every 1 2 hours while you are awake. If you have an incision on your chest or abdomen, place a pillow or a rolled-up towel firmly against your incision when you cough. This will help to reduce pain. This information is not intended to replace advice given to you by your health care provider. Make sure you discuss any questions you have with your health care provider. Document Released: 08/18/2007 Document Revised: 04/30/2018 Document Reviewed: 02/18/2018 [employer] Patient Education 2020 [employer] 11/30/2021 14:23:36 [facility] - Total Knee Arthroplasty (CUSTOM) [place], [place] [facility] DISCHARGE INSTRUCTIONS TOTAL KNEE ARTHROPLASTY INCISION CARE: Mepilex dressing can get wet with showers. Please remove 10 days after surgery per instruction sheet. If alex present, please coordinate removal 21 days after surgery with office staff. Please notify the office if any increase in redness, tenderness, drainage, fever, or wound separation is notedbeyond this point. Compression stockings may be helpful if any significant or uncomfortable swelling in the legs is noted postoperatively. Use and removal instructions should be given by physical therapy. If the swelling is below the knee, knee high compression stockings may suffice. If this does cause swelling into the thigh region, waist high compression stockings may be beneficial as well. These can be obtained from most pharmacies, or can be obtained from the hospital or through Home Health. The mild grade compression stockings are best used initially. MEDICATIONS: You may resume your home medications at the time of discharge. Aspirin 325 mg EC oral once a day for 4 weeks for blood clot prevention with meals. Please notify your doctor if you have a stomach sensitivity to Aspirin or history of previous stomach ulcers. Pain medication has been prescribed as well. You may continue to use the pain medication every fourhours as needed. Any narcotic pain medication can cause side effects including stomach upset, constipation, or light-headedness. You should not drive or operate machinery, or use alcohol while using the narcotic pain medication. You should not use other pain medications with this prescription pain medication unless further directed by your physician. PHYSICAL THERAPY: Continue the range of motion and strengthening exercises initiated in Physical Therapy in the hospital. [facility] Discharge Instructs for TKAPage 2 Physical Therapy Cont. Continue weight bearing, as ordered, to the operated knee for four to six weeks as directed in Physical Therapy, or until your strength is improved and Physical Therapy will then allow you to progress to full weight. This will be with the use of a walker or crutches initially. After four or six weeks you may then progress to the use of one crutch, or a cane. A quad-cane is preferred as this is more stable. Physical therapy as begun in the hospital will continue at home, possible with the commercial assistant of Home Health Physical Therapy or in the hospital as an outpatient. When you have become independent withthe physical therapy program, this will then be discontinued as a supervised program and you will be instructed to continue the physical therapy exercises at home. Your exercises are [place] to successful rehabilitation. You should gain full extension first, hopefully before hospital discharge, then continue to do the exercises to maintain this, and gain 90 degreesflexion by one month post-op. Do the exercises daily, twice if preferred. DRIVING: Please do not drive for 4-6 weeks pending therapy progress. 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 It is therefore advised not to drive until after yourfirst office visit following surgery FOLLOW-UP OFFICE VISIT: Drew Dacosta, [facility] [address] [place], [place] [id number] Reviewed: 07-27 Follow Up Care 10/23/2021 11:28:43 With:Drew Dacosta Address: [address] [place] [phone] Business (1) When:01/03/2022 10:15:00 Comments:Keep scheduled appointmentCall for any problems.Appointment has already been scheduled [facility]08-15-2022 Evaluation + Plan noteExtracted from: Title:HIPOLITO POSTOP Author:Seferino Vergara DO Date: 12/03/21 Plan Transfer/ Discharge: Patient can be discharged from PACU when criteria met. Condition good. Extracted from: Title:HIPOLITO PREOP Author:Seferino Vergara DO Date: Plan [place] [employer] (ASA) physical status classification: Class II. Anesthetic Preoperative Plan Anesthesia: General. . Anesthetic plan, risks, benefits, and alternatives discussed with the patient and/or family. Patient verbalized understanding. Anesthesia risks, benefits, alternatives discussed with patient and/or family/guardians. Risks discussed including but not limited to risks of nerve damage, injury, bleeding requiring transfusion, postop pulmonary complications, nausea, vomiting, sore throat, dental/oral injury, increase/decrease in HR or blood pressure, hoarseness, muscle or joint pain, heart complications discussed. Pt aware and desires to proceed. Future Appointments Appointment Date:08/23/2022 10:15:00 AM Scheduled Provider:Anthony SIBLEY MD Location:[facility] Appointment Type:URO Office Visit [facility]05-27-2022 Evaluation note* Encounter Date Diagnosis Assessment Notes Treatment Notes Treatment Clinical Notes August, Hyperlipidemia (ICD-10 - E78.5) Cholesterol levels have improved from last check. Patient is to continue with the above medication. August, Hyperglycemia (ICD-1 0 - R73.9) Fasting glucose reading of 119 and A1C reading of 5.7. We will recheck blood work again in six months. August, Prostate cancer (ICD-10 - C61) Patient is to continue to follow with Dr. Sibley as scheduled, PSA is WNL. August, Anxiety (ICD-10 - F41.9) Patient thinks that if we increase this medication that would help with his anxiety especially when he gets in large crowds. I suggest we increase the above medication to 40mg. Patient is agreeable. We will continue to monitor. August, Hypertension (ICD-10 - I10) The patients blood pressure was elevated at 158/70, I did recheck again myself with a reading of 140/70. Patient is to continue with the above medication, refill provided. August, Periodic limb movement disorder (PLMD) (ICD-10 - G47.61) Patient is to continue with the above medications regimen. August, Left knee pain, unspecified chronicity (ICD-10 - M25.562) Patient is to continue to follow with Dr. Dacosta as scheduled. [facility] Other 05-02-2022 Hospital Discharge instructions Patient Education 08/20/2021 12:46:08 Calorie Counting for Weight Loss Calorie Counting for Weight Loss Calories are units of energy. Your body needs a certain amount of calories from food to keep you going throughout the day. When you eat more calories than your body needs, your body stores the extra calories as fat. When you eat fewer calories than your body needs, your body freedman fat to get the energy it needs. Calorie counting means keeping track of how many calories you eat and drink each day. Calorie counting can be helpful if you need to lose weight. If you make sure to eat fewer calories than your bodyneeds, you should lose weight. Ask your health care provider what a healthy weight is for you. For calorie counting to work, you will need to eat the right number of calories in a day in order to lose a healthy amount of weight per week. A dietitian can help you determine how many calories youneed in a day and will give you suggestions on how to reach your calorie goal. A healthy amount of weight to lose per week is usually 1 2 lb (0.5 0.9 kg). This usually means thatyour daily calorie intake should be reduced by 500 750 calories. Eating 1,200 1,500 calories per day can help most women lose weight. Eating 1,500 1,800 calories per day can help most men lose weight. What is my plan? My goal is to have calories per day. If I have this many calories per day, I should lose around pounds per week. What do I need to know about calorie counting? In order to meet your daily calorie goal, you will need to: Find out how many calories are in each food you would like to eat. Try to do this before you eat. Decide how much of the food you plan to eat. Write down what you ate and how many calories it had. Doing this is called keeping a food log. To successfully lose weight, it is important to balance calorie counting with a healthy lifestyle that includes regular activity. Aim for 150 minutes of moderate exercise (such as walking) or 75 minutes of vigorous exercise (such as running) each week. Where do I find calorie information? The number of calories in a food can be found on a Nutrition Facts label. If a food does not have aNutrition Facts label, try to look up the calories online or ask your dietitian for help. Remember that calories are listed per serving. If you choose to have more than one serving of a food, you will have to multiply the calories per serving by the amount of servings you plan to eat. Forexample, the label on a package of bread might say that a serving size is 1 slice and that there are 90 calories in a serving. If you eat 1 slice, you will have eaten 90 calories. If you eat 2 slices, you will have eaten 180 calories. How do I keep a food log? Immediately after each meal, record the following information in your food log: What you ate. Don't forget to include toppings, sauces, and other extras on the food. How much you ate. This can be measured in cups, ounces, or number of items. How many calories each food and drink had. The total number of calories in the meal. Keep your food log near you, such as in a small notebook in your pocket, or use a mobile [place] or website. Some programs will calculate calories for you and show you how many calories you have left forthe day to meet your goal. What are some calorie counting tips? Use your calories on foods and drinks that will fill you up and not leave you hungry: ?Some examples of foods that fill you up are nuts and nut butters, vegetables, lean proteins, and high-fiber foods like whole grains. High-fiber foods are foods with more than 5 g fiber per serving. ?Drinks such as sodas, specialty coffee drinks, alcohol, and juices have a lot of calories, yet do not fill you up. Eat nutritious foods and avoid empty calories. Empty calories are calories you get from foods or beverages that do not have many vitamins or protein, such as candy, sweets, and soda. It is better to have a nutritious high-calorie food (such as an avocado) than a food with few nutrients (such as a bag of chips). Know how many calories are in the foods you eat most often. This will help you calculate calorie counts faster. Pay attention to calories in drinks. Low-calorie drinks include water and unsweetened drinks. Pay attention to nutrition labels for low fat or fat free foods. These foods sometimes have thesame amount of calories or more calories than the full fat versions. They also often have added sugar, starch, or salt, to make up for flavor that was removed with the fat. Find a way of tracking calories that works for you. Get creative. Try different apps or programs ifwriting down calories does not work for you. What are some portion control tips? Know how many calories are in a serving. This will help you know how many servings of a certain food you can have. Use a measuring cup to measure serving sizes. You could also try weighing out portions on a kitchenscale. With time, you will be able to estimate serving sizes for some foods. Take some time to put servings of different foods on your favorite plates, bowls, and cups so you know what a serving looks like. Try not to eat straight from a bag or box. Doing this can lead to overeating. Put the amount you would like to eat in a cup or on a plate to make sure you are eating the right portion. Use smaller plates, glasses, and bowls to prevent overeating. Try not to multitask (for example, watch TV or use your computer) while eating. If it is time to eat, sit down at a table and enjoy your food. This will help you to know when you are full. It will also help you to be aware of what you are eating and how much you are eating. What are tips for following this plan? Reading food labels Check the calorie count compared to the serving size. The serving size may be smaller than what youare used to eating. Check the source of the calories. Make sure the food you are eating is high in vitamins and proteinand low in saturated and trans fats. Shopping Read nutrition labels while you shop. This will help you make healthy decisions before you decide to purchase your food. Make a grocery list and stick to it. Cooking Try to cook your favorite foods in a healthier way. For example, try baking instead of frying. Use low-fat dairy products. Meal planning Use more fruits and vegetables. Half of your plate should be fruits and vegetables. Include lean proteins like poultry and fish. How do I count calories when eating out? Ask for smaller portion sizes. Consider sharing an entree and sides instead of getting your own entree. If you get your own entree, eat only half. Ask for a box at the beginning of your meal and put the rest of your entree in it so you are not tempted to eat it. If calories are listed on the menu, choose the lower calorie options. Choose dishes that include vegetables, fruits, whole grains, low-fat dairy products, and lean protein. Choose items that are boiled, broiled, grilled, or steamed. Stay away from items that are buttered,battered, fried, or served with cream sauce. Items labeled crispy are usually fried, unless stated otherwise. Choose water, low-fat milk, unsweetened iced tea, or other drinks without added sugar. If you want an alcoholic beverage, choose a lower calorie option such as a glass of wine or light beer. Ask for dressings, sauces, and syrups on the side. These are usually high in calories, so you should limit the amount you eat. If you want a salad, choose a garden salad and ask for grilled meats. Avoid extra toppings like andrade, cheese, or fried items. Ask for the dressing on the side, or ask for olive oil and vinegar or lemon to use as dressing. Estimate how many servings of a food you are given. For example, a serving of cooked rice is cup orabout the size of half a baseball. Knowing serving sizes will help you be aware of how much food you are eating at restaurants. The list below tells you how big or small some common portion sizes arebased on everyday objects: ?1 oz 4 stacked dice. ?3 oz 1 deck of cards. ?1 tsp 1 . ?1 Tbsp a ping-pong ball. ?2 Tbsp 1 ping-pong ball. ? cup baseball. ?1 cup 1 baseball. Summary Calorie counting means keeping track of how many calories you eat and drink each day. If you eat fewer calories than your body needs, you should lose weight. A healthy amount of weight to lose per week is usually 1 2 lb (0.5 0.9 kg). This usually means reducing your daily calorie intake by 500 750 calories. The number of calories in a food can be found on a Nutrition Facts label. If a food does not have aNutrition Facts label, try to look up the calories online or ask your dietitian for help. Use your calories on foods and drinks that will fill you up, and not on foods and drinks that will leave you hungry. Use smaller plates, glasses, and bowls to prevent overeating. This information is not intended to replace advice given to you by your health care provider. Make sure you discuss any questions you have with your health care provider. Document Released: 04/07/2006 Document Revised: 12/25/2018 Document Reviewed: 03/07/2017 [employer] Patient Education 2020 [employer]. 08/20/2021 12:46:04 Prostate Cancer Screening Prostate Cancer Screening The prostate is a walnut-sized gland that is located below the bladder and in front of the rectum in males. The function of the prostate (prostate gland) is to add fluid to semen during ejaculation. Prostate cancer is the second most common type of cancer in men. A screening test for cancer is a test that is done before cancer symptoms start. Screening can helpto identify cancer at an early stage, when the cancer can be treated more easily. The recommended prostate cancer screening test is a blood test called the prostate-specific antigen (PSA) test. PSA is a protein that is made in the prostate. As you age, your prostate naturally produces more PSA. Abnormally high PSA levels may be caused by: Prostate cancer. An enlarged prostate that is not caused by cancer (benign prostatic hyperplasia, BPH). This condition is very common in older men. A prostate gland infection (prostatitis). Medicines to assist with hair growth, such as finasteride. Depending on the PSA results, you may need more tests, such as: A physical exam to check the size of your prostate gland. Blood and imaging tests. A procedure to remove tissue samples from your prostate gland for testing (biopsy). Who should have screening? Screening recommendations vary based on age. If you are younger than age 40, screening is not recommended. If you are age 40 54 and you have no risk factors, screening is not recommended. If you are younger than age 55, ask your health care provider if you need screening if you have oneof these risk factors: ?Being of -[place] descent. ?Having a family history of prostate cancer. If you are age 55 69, talk with your health care provider about your need for screening and how often screening should be done. If you are older than age 70, screening is not recommended. This is because the risks that screening can cause are greater than the benefits that it may provide (risks outweigh the benefits). If you are at high risk for prostate cancer, your health care provider may recommend that you have screenings more often or start screening at a younger age. You may be at high risk if you: Are older than age 55. Are -[place]ian. Have a father, brother, or uncle who has been diagnosed with prostate cancer. The risk may be higher if your family member's cancer occurred at an early age. What are the benefits of screening? There is a small chance that screening may lower your risk of dying from prostate cancer. The chance is small because prostate cancer is typically a slow-growing cancer, and most men with prostate cancer from a different cause. What are the risks of screening? The main risk of prostate cancer screening is diagnosing and treating prostate cancer that would never have caused any symptoms or problems (overdiagnosis and overtreatment). PSA screening cannot tell you if your PSA is high due to cancer or a different cause. A prostate biopsy is the only procedure to diagnose prostate cancer. Even the results of a biopsy may not tell you if your cancer needs jade treated. Slow-growing prostate cancer may not need any treatment other than monitoring, so diagnosing and treating it may cause unnecessary stress or other side effects. A prostate biopsy may also cause: Infection or fever. A false negative. This is a result that shows that you do not have prostate cancer when you actually do have prostate cancer. Questions to ask your health care provider When should I start prostate cancer screening? What is my risk for prostate cancer? How often do I need screening? What type of screening tests do I need? How do I get my test results? What do my results mean? Do I need treatment? Contact a health care provider if: You have difficulty urinating. You have pain when you urinate or ejaculate. You have blood in your urine or semen. You have pain in your back or in the area of your prostate. You have trouble getting or maintaining an erection (erectile dysfunction, ED). Summary Prostate cancer is a common type of cancer in men. The prostate (prostate gland) is located below the bladder and in front of the rectum. This gland adds fluid to semen during ejaculation. Prostate cancer screening may identify cancer at an early stage, when the cancer can be treated more easily. The prostate-specific antigen (PSA) test is the recommended screening test for prostate cancer. Discuss the risks and benefits of prostate cancer screening with your health care provider. If you are age 70 or older, screening is likely to lead to more risks than benefits (risks outweigh the benefits). This information is not intended to replace advice given to you by your health care provider. Make sure you discuss any questions you have with your health care provider. Document Released: 01/16/2018 Document Revised: 03/20/2018 Document Reviewed: 01/16/2018 [employer] Patient Education 2020 [employer]. Follow Up Care 06/05/2020 14:34:47 With:TOÑITO VIGIL, Anthony Krause, URL Address: [facility] [address], [place] [address]- When:08/20/2022 Comments:w/ DARY [facility] 11-23-2021 Evaluation note* Encounter Date Diagnosis Assessment Notes Treatment Notes Treatment Clinical Notes Feb, Screening for AAA (abdominal aortic aneurysm) (ICD-10 - Z13.6) [employer] Other 11-11-2021 Evaluation note* Encounter Date Diagnosis Assessment Notes Treatment Notes Treatment Clinical Notes Feb, Obstructive sleep apnea (ICD-10 - G47.33) He is using and benefiting from treatment. Continue Rx, call if problem. His sleep apnea is well controlled and should not pose significant problems for his alertness. However he is encouraged to use the machine every night, all night, and to ensure adequate total sleep time; decreased utilization will increase fatigue, which will increase RLS and PLMD symptoms Feb, Periodic limb movement disorder (PLMD) (ICD-10 - G47.61) He has significant periodic limb movements that disturb both his sleep and the sleep of others. He finds this distressing and is eager to get better control if possible. We extensively discussed the situation. There are multiple contributing factors that may be adding to his RLS and PLMD. First I encouraged him to get adequate sleep and CPAP utilization. Suboptimally controlled sleep apnea can significantly worsen fatigue and restless leg symptoms second we should check for possible complicating and contributing causes. Iron deficiency can contribute to RLS and could conceivably be a factor in worsened limb movement symptoms as he has twitching which could be myoclonic rather than PLMD we will also check magnesium.... I encouraged him to reduce alcohol intake. His current levels of 4 drinks per night could have multiple negative effects on his sleep quality and could conceivably add to the sleep disorder symptoms in addition, the volumes he is currently taking will contribute significantly to weight loss problems and other health difficulties Feb, Restless leg syndrome (ICD-10 - G25.81) He has some restless leg but this is not currently a major issue. I am hopeful that reduced alcohol intake may have enough positive effects that we could conceivably avoid requiring further medication adjustments he will work on these lifestyle changes and will return to review response. Further medication adjustment or other test could be considered if there is poor clinical response 11 Feb, 2021 Essential hypertension (ICD-10 - I10) Blood pressure control frequently improves with control of underlying sleep apnea, and of course commonly improves as body weight is reduced Feb, BMI 37.0-37.9, adult (ICD-10 - Z68.37) encouraged weight loss, And discussed the role alcohol may be playing in his current body weight [facility] [facility] Other Chief complaint Narrative - Reported* ISIAH PAEZ is being seen for a consultation for pre-operative clearance. * 71-year-old gentleman seen in cardiology consultation at the request of Dr. Dacosta in general anesthesia prior to left knee replacement for preoperative clearance. He is doing well he has no cardiovascular complaints. Reportedly he had abnormal ECG at [facility] which has been reviewed he has had variable minor ECG variances over the past 7 years on 4 different ECGs reviewed from [facility] as well as ourselves. * Today's ECG reveals sinus rhythm is completely normal * Patient has underlying history of hypertension and obesity and from what his describes probably glucose intolerance. Blood work is also reviewed revealing hemoglobin A1c 6.2% average glucose of 117 normal thyroid profile, LDL is 100, HDL 51 cholesterol 185 glucose of 119 potassium 4.5, creatinine 1.2 AST and ALT of 15 and 22 respectively normal hemogram * Patient had previous treadmill stress testing in 2019 that was normal. * He has been treated for hypertension. * His overall cardiovascular risk is exceedingly low he is cleared for his intended procedure he can follow-up as needed [facility] 250 DO Work Phone: Evaluation + Plan note Future Appointments Appointment Date:08/23/2022 10:15:00 AM Scheduled Provider:Anthony SIBLEY MD Location:[facility] Appointment Type:URO Office Visit Diagnostic Tests Pending * PSA Total 08/20/21 [facility] evaluation + Plan note Future Appointments Appointment Date:12/03/2021 01:45:00 PM Scheduled Provider: Location:[facility] Appointment Type:Surgery FT Appointment Date:08/23/2022 10:15:00 AM Scheduled Provider:Anthony SIBLEY MD Location:[facility] Appointment Type:URO Office Visit Diagnostic Tests Pending * [facility]ments Appointment Date:12/03/2021 01:45:00 PM Scheduled Provider: Location:[facility] Appointment Type:Surgery FT Appointment Date:08/23/2022 10:15:00 AM Scheduled Provider:[facility]ments Appointment Date:08/23/2022 10:15:00 AM Scheduled Provider:Anthony SIBLEY MD Location:[facility] Appointment Type:URO Office Visit Diagnostic Tests Pending * [facility]ments Appointment Date:08/23/2022 10:15:00 AM Scheduled Provider:[facility] Office Visit Diagnostic Tests Pending * Blood Culture Charcoal 12/25/21 * Blood Culture Charcoal [facility] Other evaluation noteNo InformationNort [facility] Other evaluation noteNo assessment information available [facility] Work Phone: evaluation note* Diagnosis Onset Date Resolution Status Cough acute [facility] Work Phone: evaluation note* Author Ayla Hankins [facility] Authored December 10, 2023 2: 38pm The above note written by DANITA Nugent acting as human recorder, note dictated by Dr. Kaveh Tran. 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 Type II or unspecified type diabetes mellitus with neurological manifestations, not stated as uncontrolled Pain due to onychomycosis of toenails of both feet Acquired deformity of left toe Acquired deformity of right toe [facility]* Diagnosis Melanocytic nevus of trunk- Primary Benign neoplasm of skin of trunk, except scrotum Lentigines Other seborrheic dermatitis History of basal cell carcinoma Personal history of other malignant neoplasm of skin Inflamed seborrheic keratosis Neoplasm of unspecified behavior of bone, soft tissue, and skin [facility]* Diagnosis History of left knee replacement- Primary [facility]* Diagnosis 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 Type II or unspecified type diabetes mellitus with neurological manifestations, not stated as uncontrolled Onychomycosis Dermatophytosis of nail Toe pain, bilateral [facility] Diagnosis 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 Type II or unspecified type diabetes mellitus with neurological manifestations, not stated as uncontrolled Pain due to onychomycosis of toenails of both feet Acquired deformity of left toe Acquired deformity of right toe [facility] Author Nimesh Akhtar [facility] September 24, 2023 10:59am Note Date/Time September 24, 2023 10:59 am [facility] [address] [place] [address] Gastroenterology H&P Signed Patient: Isiah Paez MR#: [id number] : 1950 Acct:[id number] Age/Sex: 73 / M Adm Date: 4 Loc: Room: Type: [facility] Attending Dr: Nimesh Akhtar MD Copies to: DO Nimesh Patterson MD~ Date of Service: 09/24/2023 HISTORY & PHYSICAL: Patient's history with special attention to the cardiovascular, pulmonary systems and the current problem was reviewed with the patient immediately prior to the procedure. Present medications and doses reviewed in the EMR. Allergies and pertinent laboratory tests were also reviewedat this time in the EMR. The physical examination, as below, was then performed. Indication, assessment and HPI: 73-year-old male presents for colonoscopy to evaluate history of polyps Family history of GI malignancy? Yes, colorectal cancer in his father in his 60s PHYSICAL EXAMINATION Mouth and Pharynx : Moist mucus membranes, normal dentition Cardiac: Regular rate, regular rhythm Pulmonary: Clear to auscultation bilaterally, no wheezing Neurological: Alert and oriented x3, no focal deficits noted Abdomen: Abdomen soft, non-tender REVIEW OF SYSTEMS Constitutional: Denies malaise, fevers Cardiovascular: Denies chest pain, palpitations Respiratory: Denies shortness of breath, wheezing Gastrointestinal: Per HPI Genitourinary: Denies dysuria, polyuria Musculoskeletal: Denies joint swelling, joint stiffness Neurological: Denies numbness, tingling Integumentary: Denies rashes, skin lesions Endocrine: Denies fatigue, weight loss Written informed consent obtained from the patient. Risks (including but not limited to perforation, infection, bloating, bleeding, need for emergent surgeryand loss of life), benefits and alternatives explained and questions answered. The patient verbalized understanding. Based on history patient is an appropriate candidate for the procedure. Nimesh Akhtar MD Documented By: Nimesh Akhtar MD 09/24/23 1058 Signed By: <Electronically signed by Nimesh Akhtar MD> 09/24/23 1059 [facility] Work Phone: [facility] general Narrative - Reported* Type Description Date Medical History 2007 stress test Medical History 2007 colonoscopy Medical History 2012 bone scan Medical History 2012 prostate cancer with radiat ion Medical History Diabetes Medical History Hx prostate cancer Medical History BILATERAL HEARING AIDES Medical History Carotid/AAA screening 03/2019 Medical History 07/15/2018 Stress Test Medical History 07/22/2018 Colonoscopy- repeat 5 y rs,polypectomy Medical History sleep apnea Micah Anderson Surgical History prostate removed Surgical History prostatectomy with radiation 13 Surgical History bilateral cataract sugery 10/08 16 Surgical History lumbar spine - 05/2019 Hospitalization History prostatectomy 2012 [place] [facility] general Narrative - ReportedNort [facility] Other [facility] general Narrative - Reported* Type Description Date Medical History 2007 stress test Medical History 2007 colonoscopy Medical History 2012 bone scan Medical History 2012 prostate cancer with radiat ion Medical History Diabetes Medical History Hx prostate cancer Medical History BILATERAL HEARING AIDES Medical History Carotid/AAA screening 03/2019 Medical History 07/15/2018 Stress Test Medical History 07/22/2018 Colonoscopy- repeat 5 y rs,polypectomy Medical History sleep apnea Micah Anderson Medical History Vitamin B12 defic 05/2022 Surgical History prostate removed Surgical History prostatectomy with radiation 20 13 Surgical History bilateral cataract sugery 10/08 17 Surgical History lumbar spine - 05/2019 Hospitalization History prostatectomy 2012 [facility] Other History general Narrative - Reported* Type Description Date Medical History 2007 stress test Medical History 2007 colonoscopy Medical History 2012 bone scan Medical History 2012 prostate cancer with radiat ion Medical History Diabetes Medical History Hx prostate cancer Medical History BILATERAL HEARING AIDES Medical History Carotid/AAA screening 03/2019 Medical History 07/15/2018 Stress Test Medical History 07/22/2018 Colonoscopy- repeat 5 y rs,polypectomy Medical History sleep apnea Micah Anderson Medical History Vitamin B12 defic 05/2022 Surgical History prostate removed Surgical History prostatectomy with radiation 20 13 Surgical History bilateral cataract sugery 10/08 17 Surgical History lumbar spine - 05/2019 Hospitalization History prostatectomy 2012 Hospitalization History see surg. hx. [facility] Other Hospital course Narrative No data available for this section [facility] Hospital Discharge instructions No data available for this section [facility] Additional Instructions DISCHARGE INSTRUCTIONS FOR COLONOSCOPY WHAT TO EXPECT: - You may feel full, gassy or cramping after your procedure. In some cases, this may be from a few hours to a day. Walking may help relieve the discomfort. - If you have polyp(s) removed you may note some minor bloody discharge after your first bowel movements. - You should begin to recover from anesthesia within 1 hour of the procedure, however may feel groggy for the next 24 hours. DO's AND DON'Ts: - Call your doctor right away if you have a hard abdomen, severe pain, are passing lots of bright red blood or clots. - Call your doctor if you develop any rashes, hives or difficulty breathing. - Let your doctor know if you have not had a bowel movement by 3 days after your procedure. - If you take 81 mg aspirin for your heart it is safe to resume this medication. - If you take other blood thinner medications your doctor will instruct you when these can safely be resumed. - Do NOT drive for 24 hours. - Do NOT operate machinery such as power tools, lawn mowers, snow blowers, sewing machines, etc. for 24 hours. - Avoid alcoholic beverages and drugs for allergies, nerves, or sleep. - Do NOT stay alone. Do NOT leave your child unattended. - Do NOT make important personal or business decisions or sign any legal documents. - Eat solid foods and drink liquids in smaller amounts than usual until normal appetite returns. If you should experience an upset stomach, liquids high in sugar content (soda, Sathya-Aid, non-acid juices) are recommended. - You can resume normal activities tomorrow. FOLLOW UP & RECOMMENDATIONS: -Follow-up with Dr. Akhtar as needed -Notify the doctor if you have any problems. -Repeat colonoscopy in 5 years. -Follow up with PCP. -Office number [phone].[facility] Work Phone: Progress note No data available for this section [facility] Reason *FU 03/25 Evaluati on and treatment for gout . Please call patient with appt date and time. Diagnosis 1 Gout, unspecified ca use, unspecified chronicity, unspecified site (M10.9) Referral Organization [facility] Referring Provider First Name Kaveh Referring Provider Last Name Marc Referring Provider [facility] Family Prac keely Referred Organization [facility] Referred Provider Christofer Devi Referred Address [address] [facility] [place] Referred Provider Specialty Rheumatology Referral Priority Routine General Notes Caroline Viveros M 022 12:45:04 PM >Received today. [facility] would like us to fax the referral to them. The Doctors will review the referral and office will call patient to schedule them. Referral was fax [facility] Other Summary Purpose Family History No Family History Records FoundUnknown Family Member Name Dates Details Family history of malignant neoplasm: Mother, Father(V16.9, Z80.9) Status:Active Family history of cardiac di sorder: Mother, Father(V17.49, Z82.49) Status:Active Family history of diabetes m ellitus: Mother, Father, Brother(V18.0, Z83.3) Status:Active Relationship Condition Age at Onset Recorded Date/T sharan father Family history of co ronary artery bypass surgery Unknown Coronary artery disease Unknown Malignant neoplasm of colon Unknown Not Specified Malignant neoplasm of lung Unknown Relationship Condition Age at Onset Recorded Date/T sharan father Family history of co ronary artery bypass surgery Unknown Coronary artery disease Unknown Malignant neoplasm of colon Unknown Not Specified Malignant neoplasm of lung Unknown father Unknown Heart disease Unknown Myocardial infarction Unknown Not Specified Unknown Malignant neoplasm Unknown Not Specified Malignant neoplasm Unknown Relationship Condition Age at Onset Recorded Date/T sharan father Malignant neoplasm of colon Unknown Coronary artery disease Unknown Family history of co ronary artery bypass surgery Unknown Heart disease Unknown Unknown Myocardial infarction Unknown Not Specified Malignant neoplasm of lung Unknown Malignant neoplasm Unknown Relationship Condition Age at Onset Recorded Date/T sharan father Malignant neoplasm of colon Unknown Coronary artery disease Unknown Family history of co ronary artery bypass surgery Unknown Heart disease Unknown Unknown Myocardial infarction Unknown mother Malignant neoplasm of lung Unknown Malignant neoplasm Unknown Advance Directives No Advanced Directives Records Found Advance Directive Response Recorded Date/ Time Advance Directives No October 10 4:13pm Advance Directive Response Recorded Date/ Time Advance Directives No October 10 5:13pm Advance Directive Response Recorded Date/ Time Advance Directives No May 20, 2023 4:35pm Chief Complaint and Reason for Visit Chief Complaint Sleep apnea annual f ollow up Chief Complaint Sleep apnea annual f ollow up m54.16 m51.36 m48.061 Chief Complaint Sleep apnea annual f ollow up m54.16 m51.36 m48.061 R73.9 e78.5 Chief Complaint Sleep apnea annual f ollow up m54.16 m51.36 m48.061 R73.9 e78.5 G62,9 Chief Complaint m54.16 m51.36 m48.06 1 R73.9 e78.5 G62,9 M25.50 M10.09 Chief Complaint mariya, 1 year Chief Complaint M10.09 Z79.899 cough and sinus testing Reason for Visit Cough Chief Complaint cough and sinus test ing hx of colon polyps hx of colon polyps Reason for Visit Cough RSV (respiratory syncytial virus infection) Chief Complaint hx of colon polyps hx of colon polyps Amb Documentation medicare wellness-sub Reason for Visit Hyperlipidemia Medicare annual wellness visit, subsequent Screening for prostate cancer Type 2 diabetes mellitus Vitamin B12 deficiency Reason for Referral Reason 07/23/22 @ 3:00pm consult and treat Diagnosis 1 Type 2 diabetes holden itus with other specified complication, without long-term current use of insulin (E11.69) Referral Organization [facility] Referring Provider First Name Kaveh Referring Provider Last Name Marc Referring Provider Specialty Family Prac keely Referred Organization [facility] Referred Provider Vannessa Pineda Referred Address [address],[place], [place],[address] Referred Provider Specialty Diabetes Edu cation Referral Priority Routine Referral Appointment Date 2022-07-23 General Notes Caroline Viveros 023 10:56:15 AM >Received today and sent P2P Matt Viverosn 06/17/2022 02:22:40 PM >Patient has been scheduled Additional Source Comments (unrecognized sect ion and content) No Status Records FoundNo Status Records FoundNo Status Records FoundNo Status Records FoundNo Status Records FoundNo Status Records FoundNo Status Records Found INFORMATION SOURCE (unrecogn ized section and content) DATE CREATED AUTHOR 07/20/2018 [facility] DATE CREATED AUTHOR AUTHOR'S ORGANIZ ATION 11/22/2021 [facility] DATE CREATED AUTHOR AUTHOR'S ORGANIZ ATION 04/14/2022 [facility] DATE CREATED AUTHOR AUTHOR'S ORGANIZ ATION 09/27/2022 [facility] DATE CREATED AUTHOR AUTHOR'S ORGANIZ ATION 02/19/2023 [facility] DATE CREATED AUTHOR AUTHOR'S ORGANIZ ATION 10/03/2023 [facility] DATE CREATED AUTHOR AUTHOR'S ORGANIZ ATION 05/04/2024 [facility] dical Specialists EPIC REASON FOR VISIT (unrecogniz ed section and content) Reason Comments DM Foot Care Dm nail care Reason Comments Follow-up [place] [facility] 12/03/21 [facility] [place] Reason Comments Skin Check Reason Comments DM Foot Care Dm Nails Reason Comments Polyneuropathy Sleep Apnea Back Pain Annualcough-BLACK TRUCKlabs to [place] labs DM/hyperlipidemiaRefillsCancelled Appointmentreview EMG, MRI, PT f/uf/u neurology blood work - vitamin B-12DM ReferralER noticereview labsNO [facility]in ical Care Team (unrecognized sect ion and content) Team Status: Inactive Member Role Status Walter Tran , DO Primary Care Provider Active Micah Forrest MD Attending Provider Active Team Status: Active Member Role Status Walter Tran , DO Primary Care Provider Active Team Status: Inactive Member Role Status Walter Tran , DO Primary Care Provider Active Sherrie Figueroa PA-C Attending Provider Active Team Status: Inactive Member Role Status Walter Tran , DO Primary Care Provider, Attending Provi estella Active Team Status: Inactive Member Role Status Walter Tran , DO Primary Care Provider Active Christofer Devi MD Attending Provider Active Team Status: Inactive Member Role Status Wlater Tran , Primary Care Provider Active Sherrie Kessler PA-C Attending Provider Active Team Status: Inactive Member Role Status Walter Tran , Primary Care Provider Active Nely Wilhelm NP Attending Provider Active Team Status: Inactive Member Role Status Walter Tran , Primary Care Provider Active Sta rt: June 24, 2023 End: June 24, 2023 Christofer Devi MD Attending Provider Active St art: June 24, 2023 End: June 24, 2023 Team Status: Inactive Member Role Status Walter Tran DO Primary Care Provide r, Attending Provider Active Start: September 09, 2023 End: September 09, 2023 Team Status: Inactive Member Role Status Walter Tran DO Primary Care Provider Active Sta rt: September 24, 2023 End: September 24, 2023 Nimesh Akhtar MD Attending Provider Active S tart: September 24, 2023 End: September 24, 2023 Team Status: Active Member Role Status Walter Tran DO Primary Care Provider Active Sta rt: September 24, 2023 Nimesh Akhtar MD Attending Provider, Other Provide r Active Start: September 24, 2023 Team Status: Active Member Role Status Walter Akhtar MD Specialist Active Nely Wilhelm NP Specialist Active Dae Esposito MD Specialist Active Drew Dacosta DO Specialist Active Kaveh Tran , DO Primary Care Provider Active Team Status: Active Member Role Status Walter Tran DO Primary Care Provider Active Sta rt: November 04, 2023 DANITA Otero Attending Provider Active Start: November 04, 2023 Team Status: Active Member Role Status Dates Kaveh Tran DO Primary Care Provide r, Attending Provider Active Start: November 27, 2023 Team Status: Inactive Member Role Status Dates Kaveh Tran DO Primary Care Provide r, Attending Provider Active Start: December 10, 2023 End: December 10, 2023 Site Medical Director Relationship Specialty Start Date End Date Kaveh Tran DO [address] [place] [facility] [address] PCP - General Family Medicine 12/17/22 Site Medical Director Relationship Specialty Start Date End Date Kaveh Tran DO [address] [place] [facility] [address] PCP - General Family Medicine 12/17/22 Site Medical Director Relationship Specialty Start Date End Date Kaveh Tran DO [address] [place] [facility] [address] PCP - General Family Medicine 12/17/22 Site Medical Director Relationship Specialty Start Date End Date Kaveh Tran DO [address] [place] [facility] [id number] PCP - General Family Medicine 12/17/22 Site Medical Director Relationship Specialty Start Date End Date Kaveh Tran DO [address] [place] [facility] [address] PCP - General Family Medicine 12/17/22 Site Medical Director Relationship Specialty Start Date End Date Kaveh Tran DO [address] [place] [facility] [phone] PCP - General Family Medicine 12/17/22 Site Medical Director Relationship Specialty Start Date End Date Kaveh Tran DO [address] [place] [facility] [address] PCP - General Family Medicine 12/17/22 Site Medical Director Relationship Specialty Start Date End Date Kaveh Tran DO [address] [place] [facility] [id number] PCP - General Family Medicine 12/17/22 Site Medical Director Relationship Specialty Start Date End Date Kaveh Tran DO [address] [place] [facility] [address] PCP - General Family Medicine 12/17/22 Site Medical Director Relationship Specialty Start Date End Date Kaveh Tran DO [address] [place] [facility] [phone] PCP - General Family Medicine 12/17/22 Site Medical Director Relationship Specialty Start Date End Date Kaveh Tran DO [address] [place] [facility] [phone] PCP - General Family Medicine 12/17/22 Goals (unrecognized section and content) Goals may be documented in a n alternate section FOR RECORDS PERTAINING TO PATIENTS WHO ARE OR HAVE BEEN ENROLLED IN A CHEMICAL DEPENDENCY/SUBSTANCEABUSE PROGRAM, SOME INFORMATION MAY BE OMITTED. This clinical summary was aggregated from multiple sources. Caution should be exercised in using it in the provision of clinical care. This summary normalizes information from multiple sources, and as a consequence, information in this document may materially change the coding, format and clinical context of patient data. In addition, data may be omitted in some cases. CLINICAL DECISIONS SHOULD BE BASED ON THE PRIMARY CLINICAL RECORDS. [employer] [facility] provides no warranty or guarantee of the accuracy or completeness of information in this document.
[2024-06-02 12:39] LABS: Estimated Average Glucose 123 mg/dL; Glycohemoglobin A1C 5.9 % (4.5-6.2)
[2024-06-02 13:02] LABS: Alanine Aminotransferase 30 U/L (16-63); Albumin Globulin Ratio 0.9; Albumin Level 3.8 g/dL (3.4-5.0); Alkaline Phosphatase 71 U/L (46-116); Anion Gap 11.4; Aspartate Amino Transferase 17 U/L (15-37); BUN Creatinine Ratio 8.7; Bilirubin Total 0.6 mg/dL (0.2-1.0); Calcium 9.3 mg/dL (8.5-10.1); Carbon Dioxide 30.3 mmol/L (21.0-32.0); Chloride 101 mmol/L (98-107); Chol HDL Ratio 2.7; Cholesterol 168 mg/dL (<=200); Estimated GFR (African America >60 (>=60 mL/min/1.73m^2); Estimated GFR (Non-African Ame >60 (>=60 mL/min/1.73m^2); Globulin 4.1 g/dL; Glucose 118 mg/dL (74-106); HDL Cholesterol 63 mg/dL (40-60); Potassium 3.7 mmol/L (3.5-5.1); Sodium 139 mmol/L (136-145); Thyroid Stimulating Hormone 2.848 uIU/mL (0.358-3.740); Total Protein 7.9 g/dL (6.4-8.2); Triglycerides 95 mg/dL (<=150)
== END 2024-06-02 11:49 | disposition home or self-care (01) ==
LOC: LAB 11:49
PROVIDERS: PCP Family Medicine; Visit Provider Family Medicine
DX: E11.65 Type 2 diabetes mellitus with hyperglycemia (principal); E78.5 Hyperlipidemia, unspecified; E11.9 Type 2 diabetes mellitus without complications
CPT/HCPCS: 36415; 80053; 80061; 83036; 84443; 85025